=== PATIENT | female | born 1970 | race Caucasian/White ===

== ENCOUNTER 2017-09-29 22:04 | Inpatient (IN) | payer BC ==
[~2017-09-29] VITALS: Ht 160 cm; Wt 78.5 kg
[2017-09-29] MEDS ORDERED: fentaNYL PF VIAL 100 MCG/2 ML VIAL IV ONE (23:00)
[2017-09-29] MEDS ORDERED: ONDANSETRON PF 4 MG/2 ML VIAL. IV ONE (23:00)
[2017-09-29] MEDS ORDERED: IV NORMAL SALINE 1000ML BAG 1,000 ML IV ONE (23:00)
--- NOTE | 2017-09-29 23:02 | PHYS DOC ---
Adult General Chief Complaint Chief Complaint: ABDOMINAL PAIN HPI HPI Patient is a 47 year old F who presents with upper abdominal pain for the last 2-3 days. Patient reports she has been vomiting with diarrhea. She reports she last vomited yesterday. Today, she tried to eat a sandwich and then had severe abdominal pain that radiates to her back. She reports she had her GB removed 2 years ago. She reports she is supposed to take insulin daily, but cannot afford it and has been out for at least 1 year. She reports she has had approximate 100# weight loss over the last two years. Review of Systems Review of Systems Constitutional: Denies fever or chills [] Cardiovascular: Denies chest pain, palpitations or sob GI: Reports epigastric abdominal pain, nausea, vomiting, or diarrhea [] : Denies dysuria or hematuria [] Musculoskeletal: Reports abdominal pain radiates to back Integument: Denies rash or skin lesions [] Endocrine: Reports polydipsia [] All other systems were reviewed and found to be within normal limits, except as documented in this note. Current Medications Current Medications Current Medications Medications (Trade) Dose Ordered Sig/Eamon Start Time Stop Time Status Last Admin Dose Admin Fentanyl Citrate (Fentanyl 2ml Vial) 50 mcg 1X ONCE 09/29/17 23:00 09/29/17 23:01 DC 09/29/17 23:00 50 MCG Ondansetron HCl (Zofran) 4 mg 1X ONCE 09/29/17 23:00 09/29/17 23:01 DC 09/29/17 23:00 4 MG Sodium Chloride 1,000 ml @ 1,000 mls/hr 1X ONCE 09/29/17 23:00 09/29/17 23:59 DC 09/29/17 23:00 1,000 MLS/HR Allergies Allergies Allergies Coded Allergies Type Severity Reaction Last Updated Verified Sulfa (Sulfonamide Antibiotics) Allergy Unknown 09/29/17 Yes Physical Exam Physical Exam Constitutional: Well developed, well nourished, mild distress, non-toxic appearance. [] HENT: Normocephalic, atraumatic Eyes: PERRLA, EOMI, conjunctiva normal, no discharge. [] Neck: Normal range of motion, no tenderness, supple, no stridor. [] Cardiovascular: Mild tachycardia, regular rhythm Lungs & Thorax: Bilateral breath sounds clear to auscultation [] Abdomen: Bowel sounds diminished, soft, upper abdominal tenderness Skin: Warm, dry, no erythema, no rash. [] Neurologic: Alert and oriented X 3, normal motor function, normal sensory function, no focal deficits noted. [] Psychologic: Affect normal, judgement normal, mood normal. [] Current Patient Data Vital Signs Vital Signs Date Time Temp Pulse Resp B/P (MAP) Pulse Ox O2 Delivery O2 Flow Rate FiO2 09/29/17 23:00 102 18 120/64 (82) 99 09/29/17 22:45 98.8 Room Air 98.8 Lab Values Laboratory Tests Test 09/29/17 22:23 09/29/17 22:45 09/29/17 23:06 Urine Collection Type Unknown Urine Color Yellow Urine Clarity Cloudy Urine pH 5.0 Urine Specific [place] 1.025 Urine Protein 100 mg/dL (NEG-TRACE) Urine Glucose (UA) >=1000 mg/dL (NEG) Urine Ketones (Stick) Negative mg/dL (NEG) Urine Blood Trace (NEG) Urine Nitrite Negative (NEG) Urine Bilirubin Small (NEG) Urine Urobilinogen Dipstick 1.0 mg/dL (0.2 mg/dL) Urine Leukocyte Esterase Small (NEG) Urine RBC 1-2 /HPF (0-2) Urine WBC 5-10 /HPF (0-4) Urine Squamous Epithelial Cells Many /LPF Urine Bacteria Many /HPF (0-FEW) Urine Mucus Slight /LPF White Blood Count 15.6 x10^3/uL (4.0-11.0) H Red Blood Count 4.67 x10^6/uL (3.50-5.40) Hemoglobin 14.0 g/dL (12.0-15.5) Hematocrit 40.4 % (36.0-47.0) Mean Corpuscular Volume 87 fL (79-100) Mean Corpuscular Hemoglobin 30 pg (25-35) Mean Corpuscular Hemoglobin Concent 35 g/dL (31-37) Red Cell Distribution Width 12.9 % (11.5-14.5) Platelet Count 136 x10^3/uL (140-400) L Neutrophils (%) (Auto) 87 % (31-73) H Lymphocytes (%) (Auto) 3 % (24-48) L Monocytes (%) (Auto) 9 % (0-9) Eosinophils (%) (Auto) 0 % (0-3) Basophils (%) (Auto) 0 % (0-3) Neutrophils # (Auto) 13.6 x10^3uL (1.8-7.7) H Lymphocytes # (Auto) 0.4 x10^3/uL (1.0-4.8) L Monocytes # (Auto) 1.4 x10^3/uL (0.0-1.1) H Eosinophils # (Auto) 0.0 x10^3/uL (0.0-0.7) Basophils # (Auto) 0.0 x10^3/uL (0.0-0.2) Segmented Neutrophils % 79 % (35-66) H Band Neutrophils % 12 % (0-9) H Lymphocytes % 4 % (24-48) L Monocytes % 4 % (0-10) Eosinophils % 1 % (0-5) Toxic Granulation Slight Toxic Vacuolation Slight Platelet Estimate Adequate (ADEQUATE) Prothrombin Time 14.8 SEC (11.7-14.0) H Prothrombin Time INR 1.2 (0.8-1.1) H Sodium Level 135 mmol/L (136-145) L Potassium Level 3.4 mmol/L (3.5-5.1) L Chloride Level 99 mmol/L (98-107) Carbon Dioxide Level 26 mmol/L (21-32) Anion Gap 10 (6-14) Blood Urea Nitrogen 25 mg/dL (7-20) H Creatinine 1.4 mg/dL (0.6-1.0) H Estimated GFR (Cockcroft-Gault) 40.0 BUN/Creatinine Ratio 18 (6-20) Glucose Level 386 mg/dL (70-99) H Calcium Level 9.5 mg/dL (8.5-10.1) Total Bilirubin 2.3 mg/dL (0.2-1.0) H Aspartate Amino Transferase (AST) 21 U/L (15-37) Alanine Aminotransferase (ALT) 29 U/L (14-59) Alkaline Phosphatase 158 U/L (46-116) H Troponin I Quantitative < 0.017 ng/mL (0.000-0.055) Total Protein 8.3 g/dL (6.4-8.2) H Albumin 3.5 g/dL (3.4-5.0) Albumin/Globulin Ratio 0.7 (1.0-1.7) L Lipase 90 U/L (73-393) Glucose (Fingerstick) 330 mg/dL (70-99) H Laboratory Tests 09/29/17 22:45 Laboratory Tests 09/29/17 22:45 EKG EKG Normal sinus rhythm, heart rate 100, normal axis[] Radiology/Procedures Radiology/Procedures [] Course & Med Decision Making Course & Med Decision Making Pertinent Labs and Imaging studies reviewed. (See chart for details) d/w Dr. Guillaume, will see patient in ER. d/w Dr. Lai, accepts admission Plan: admit puja: I saw and evaluated this patient. She does have significant upper abdominal tenderness CT scan as noted above. Patient was seen by the surgeon the emergency room plan for overnight stabilization check INR surgery soon but not immediately. Maher was ordered by me. I did check her penicillin allergy for she said that she had "convulsions" at the age of 3 but has subsequently tolerated amoxicillin and cephalexin Dragon Disclaimer Dragon Disclaimer This electronic medical record was generated, in whole or in part, using a voice recognition dictation system. Departure Departure Impression: Primary Impression: Pneumoperitoneum Additional Impression: Hyperglycemia Disposition: ADMITTED INPATIENT Admitting Physician: Xie. Salazar Condition: STABLE Problem Qualifiers NATI SMITH APRN Sep 29, 2017 23:02 ABRAM BARONE MD Sep 30, 2017 03:57
[2017-09-29 23:03] LABS: BASO % 0 % (0-3); EOS % 0 % (0-3); HEMATOCRIT 40.4 % (36.0-47.0); LYMPH # 0.4 x10^3/uL (1.0-4.8); LYMPH % 3 % (24-48); MEAN CORPUSCULAR HEMOGLOBIN 30 pg (25-35); MEAN CORPUSCULAR HGB CONC 35 g/dL (31-37); MEAN CORPUSCULAR VOLUME 87 fL (79-100); MONO # 1.4 x10^3/uL (0.0-1.1); MONO % 9 % (0-9); NEUT # 13.6 x10^3uL (1.8-7.7); NEUT % 87 % (31-73); PLATELET COUNT 136 x10^3/uL (140-400); RED BLOOD COUNT 4.67 x10^6/uL (3.50-5.40); RED CELL DISTRIBUTION WIDTH 12.9 % (11.5-14.5); WHITE BLOOD COUNT 15.6 x10^3/uL (4.0-11.0)
[2017-09-29 23:05] LABS: BILIRUBIN,URINE SMALL (NEG); CLARITY,URINE CLOUDY; COLOR,URINE YELLOW; NITRITE,URINE NEGATIVE (NEG); PROTEIN,URINE 100 mg/dL (NEG-TRACE)
[2017-09-29 23:14] LABS: BACTERIA,URINE MANY /HPF (0-FEW); SQUAMOUS EPITHELIAL CELL,UR MANY /LPF
[2017-09-29 23:14] LABS: CALCIUM 9.5 mg/dL (8.5-10.1); CREATININE 1.4 mg/dL (0.6-1.0); POTASSIUM 3.4 mmol/L (3.5-5.1)
[2017-09-29 23:19] LABS: ALBUMIN 3.5 g/dL (3.4-5.0); ALBUMIN/GLOBULIN RATIO 0.7 (1.0-1.7); TOTAL BILIRUBIN 2.3 mg/dL (0.2-1.0); TOTAL PROTEIN 8.3 g/dL (6.4-8.2)
[2017-09-29 23:22] LABS: % BANDS 12 % (0-9); % EOS 1 % (0-5); % LYMPHS 4 % (24-48); % MONOS 4 % (0-10); % SEGS 79 % (35-66)
[2017-09-29 23:23] LABS: PLT ESTIMATE ADEQUATE (ADEQUATE)
[2017-09-29 23:24] LABS: TOXIC GRANULATION SLIGHT; TOXIC VACUOLATION SLIGHT
--- NOTE | 2017-09-29 23:48 | RAD ---
PQRS Compliance statement: One or more of the following individualized dose reduction techniques were utilized for this examination: 1. Automated exposure control. 2. Adjustment of the mA and/or kV according to patient size. 3. Use of iterative reconstruction technique. Indication:severe upper abd pain, back pain, n/v x 2-3 days, non contrast due to low gfr, no priors TECHNIQUE: CT abdomen and pelvis without IV contrast with multiplanar reformats. COMPARISON: None FINDINGS: Limited exam due to lack of IV contrast. Heart is normal in size. No pericardial or pleural effusion. Clear lung bases. Liver is enlarged measuring 20 cm in craniocaudal dimension with lobular contour. Spleen is nonenlarged. Status post cholecystectomy. Noncontrast appearance of the pancreas is within normal limits. Adrenal glands demonstrate no nodularity. No nephrolithiasis or hydronephrosis. Small amount of pneumoperitoneum is seen. Shotty retroperitoneal lymph nodes are seen. No free pelvic fluid or ascites. No bowel obstruction. Uterus is present. Urinary bladder demonstrates no radiopaque stones. Normal appendix. No suspicious bony lesion. IMPRESSION: 1. Small amount of anterior upper abdominal pneumoperitoneum concerning for perforated viscus although no definite site of perforation is seen stomach is suspected. 2. Cirrhotic morphology of the liver. Critical findings were identified on 09/29/2017 11:35 PM, read back and verified with Dr. Navas on 09/29/2017 11:[address] Master Armstrong DO. In Electronically signed by: Master Armstrong DO (09/29/2017 11:44 PM) [facility]
[2017-09-30] VITALS (13 sets, daily range): BP systolic 116–156; BP diastolic 67–96
[2017-09-30] MEDS ORDERED: PIPERACILLIN/TAZOBACTAM 3.375 GM in IV NORMAL SALINE 50ML 50 ML IV ONE (00:15)
[2017-09-30 00:17] LABS: PROTHROMBIN TIME PATIENT 14.8 SEC (11.7-14.0)
[2017-09-30] MEDS ORDERED: MORPHINE SULFATE 2 MG/ML VIAL. IV PRN ×2 (01:15→07:00)
--- NOTE | 2017-09-30 01:17 | PDOC2 ---
CONSULT Date of Consult Date of Consult DATE: 09/30/17 TIME: 00:58 Reason for Consult Reason for Consult: pneumoperitoneum Referring Physician Referring Physician: ANIYAH Identification/Chief Complaint Chief Complaint upper abdominal pain Source Source: Chart review, Patient History of Present Illness Reason for Visit: Maggy is a 47 yo diabetic female who hasn't been on medication for the last year plus. She tells me her sugars usually run in the 400's. She had an episode of "diabetic coma" several years ago while living in [place], [place]. When her three years ago she moved to [place] for a time. She is now back living in the area. Early this week she was having diarrhea and violent emesis. Her diarrhea has resolved. She has been taking Naprosyn for chronic back pain. Earlier tonight she ate a ham sandwich and developed sever upper abdominal pain , radiating to her back. CT tonoc shows pneumoperitoneum. Past Medical History Cardiovascular: No pertinent hx Pulmonary: No pertinent hx Hepatobiliary: Cholelithiasis Renal/: No pertinent hx Endocrine: Diabetes Past Surgical History Past Surgical History: Cholecystectomy Family History Family History: No Significant Social History No ALCOHOL: other (denies) Drugs: Marijuana Current Problem List Problem List Problems Medical Problems: (1) Hyperglycemia Status: Acute (2) Pneumoperitoneum Status: Acute Current Medications Current Medications Current Medications Fentanyl Citrate (Fentanyl 2ml Vial) 50 mcg 1X ONCE IV Last administered on at 23:00; Start 09/29/17 at 23:00; Stop 09/29/17 at 23:01; Status DC Sodium Chloride 1,000 ml @ 1,000 mls/hr 1X ONCE IV Last administered on at 23:00; Start 09/29/17 at 23:00; Stop 09/29/17 at 23:59; Status DC Ondansetron HCl (Zofran) 4 mg 1X ONCE IV Last administered on 09/29/17at 23:00 ; Start 09/29/17 at 23:00; Stop 09/29/17 at 23:01; Status DC Piperacillin Sod/ Tazobactam Sod 3.375 gm/Sodium Chloride 50 ml @ 100 mls/hr 1X ONCE IV Last administered on 09/30/17at 00:15; Start 09/30/17 at 00:15; Stop 09/30/17 at 00:44; Status DC Allergies Allergies: Coded Allergies: Sulfa (Sulfonamide Antibiotics) (Verified Allergy, Unknown, 09/29/17) orquidea (Verified Allergy, Unknown, 09/29/17) ROS Gastrointestinal: Yes Nausea, Yes Vomiting, Yes Abdominal Pain Physical Exam General: Alert, Oriented X3, Cooperative, No acute distress, Other (sitting in a chair next to the gurney) HEENT: Atraumatic, Other (poor dentition) Lungs: Normal air movement Heart: Regular rate Abdomen: Other (soft, non distended, mildly TTP in the upper abdomen, well healed l/s charity scars) Extremities: No clubbing Skin: Other (right hand skin changes) Neuro: Normal speech Psych/Mental Status: Mental status NL MUSCULOSKELETAL: No deformity Vitals VITALS Vital Signs Date Time Temp Pulse Resp B/P (MAP) Pulse Ox O2 Delivery O2 Flow Rate FiO2 09/30/17 00:30 99 18 129/78 (95) 99 09/29/17 22:45 98.8 Room Air 98.8 Labs Labs Laboratory Tests Test 09/29/17 22:23 09/29/17 22:45 09/29/17 23:06 Urine Collection Type Unknown Urine Color Yellow Urine Clarity Cloudy Urine pH 5.0 Urine Specific [place] 1.025 Urine Protein 100 mg/dL (NEG-TRACE) Urine Glucose (UA) >=1000 mg/dL (NEG) Urine Ketones (Stick) Negative mg/dL (NEG) Urine Blood Trace (NEG) Urine Nitrite Negative (NEG) Urine Bilirubin Small (NEG) Urine Urobilinogen Dipstick 1.0 mg/dL (0.2 mg/dL) Urine Leukocyte Esterase Small (NEG) Urine RBC 1-2 /HPF (0-2) Urine WBC 5-10 /HPF (0-4) Urine Squamous Epithelial Cells Many /LPF Urine Bacteria Many /HPF (0-FEW) Urine Mucus Slight /LPF White Blood Count 15.6 x10^3/uL (4.0-11.0) Red Blood Count 4.67 x10^6/uL (3.50-5.40) Hemoglobin 14.0 g/dL (12.0-15.5) Hematocrit 40.4 % (36.0-47.0) Mean Corpuscular Volume 87 fL (79-100) Mean Corpuscular Hemoglobin 30 pg (25-35) Mean Corpuscular Hemoglobin Concent 35 g/dL (31-37) Red Cell Distribution Width 12.9 % (11.5-14.5) Platelet Count 136 x10^3/uL (140-400) Neutrophils (%) (Auto) 87 % (31-73) Lymphocytes (%) (Auto) 3 % (24-48) Monocytes (%) (Auto) 9 % (0-9) Eosinophils (%) (Auto) 0 % (0-3) Basophils (%) (Auto) 0 % (0-3) Neutrophils # (Auto) 13.6 x10^3uL (1.8-7.7) Lymphocytes # (Auto) 0.4 x10^3/uL (1.0-4.8) Monocytes # (Auto) 1.4 x10^3/uL (0.0-1.1) Eosinophils # (Auto) 0.0 x10^3/uL (0.0-0.7) Basophils # (Auto) 0.0 x10^3/uL (0.0-0.2) Segmented Neutrophils % 79 % (35-66) Band Neutrophils % 12 % (0-9) Lymphocytes % 4 % (24-48) Monocytes % 4 % (0-10) Eosinophils % 1 % (0-5) Toxic Granulation Slight Toxic Vacuolation Slight Platelet Estimate Adequate (ADEQUATE) Prothrombin Time 14.8 SEC (11.7-14.0) Prothromb Time International Ratio 1.2 (0.8-1.1) Sodium Level 135 mmol/L (136-145) Potassium Level 3.4 mmol/L (3.5-5.1) Chloride Level 99 mmol/L (98-107) Carbon Dioxide Level 26 mmol/L (21-32) Anion Gap 10 (6-14) Blood Urea Nitrogen 25 mg/dL (7-20) Creatinine 1.4 mg/dL (0.6-1.0) Estimated GFR (Cockcroft-Gault) 40.0 BUN/Creatinine Ratio 18 (6-20) Glucose Level 386 mg/dL (70-99) Calcium Level 9.5 mg/dL (8.5-10.1) Total Bilirubin 2.3 mg/dL (0.2-1.0) Aspartate Amino Transf (AST/SGOT) 21 U/L (15-37) Alanine Aminotransferase (ALT/SGPT) 29 U/L (14-59) Alkaline Phosphatase 158 U/L (46-116) Troponin I Quantitative < 0.017 ng/mL (0.000-0.055) Total Protein 8.3 g/dL (6.4-8.2) Albumin 3.5 g/dL (3.4-5.0) Albumin/Globulin Ratio 0.7 (1.0-1.7) Lipase 90 U/L (73-393) Glucose (Fingerstick) 330 mg/dL (70-99) Laboratory Tests Test 09/29/17 22:23 09/29/17 22:45 09/29/17 23:06 Urine Collection Type Unknown Urine Color Yellow Urine Clarity Cloudy Urine pH 5.0 Urine Specific [place] 1.025 Urine Protein 100 mg/dL (NEG-TRACE) Urine Glucose (UA) >=1000 mg/dL (NEG) Urine Ketones (Stick) Negative mg/dL (NEG) Urine Blood Trace (NEG) Urine Nitrite Negative (NEG) Urine Bilirubin Small (NEG) Urine Urobilinogen Dipstick 1.0 mg/dL (0.2 mg/dL) Urine Leukocyte Esterase Small (NEG) Urine RBC 1-2 /HPF (0-2) Urine WBC 5-10 /HPF (0-4) Urine Squamous Epithelial Cells Many /LPF Urine Bacteria Many /HPF (0-FEW) Urine Mucus Slight /LPF White Blood Count 15.6 x10^3/uL (4.0-11.0) Red Blood Count 4.67 x10^6/uL (3.50-5.40) Hemoglobin 14.0 g/dL (12.0-15.5) Hematocrit 40.4 % (36.0-47.0) Mean Corpuscular Volume 87 fL (79-100) Mean Corpuscular Hemoglobin 30 pg (25-35) Mean Corpuscular Hemoglobin Concent 35 g/dL (31-37) Red Cell Distribution Width 12.9 % (11.5-14.5) Platelet Count 136 x10^3/uL (140-400) Neutrophils (%) (Auto) 87 % (31-73) Lymphocytes (%) (Auto) 3 % (24-48) Monocytes (%) (Auto) 9 % (0-9) Eosinophils (%) (Auto) 0 % (0-3) Basophils (%) (Auto) 0 % (0-3) Neutrophils # (Auto) 13.6 x10^3uL (1.8-7.7) Lymphocytes # (Auto) 0.4 x10^3/uL (1.0-4.8) Monocytes # (Auto) 1.4 x10^3/uL (0.0-1.1) Eosinophils # (Auto) 0.0 x10^3/uL (0.0-0.7) Basophils # (Auto) 0.0 x10^3/uL (0.0-0.2) Segmented Neutrophils % 79 % (35-66) Band Neutrophils % 12 % (0-9) Lymphocytes % 4 % (24-48) Monocytes % 4 % (0-10) Eosinophils % 1 % (0-5) Toxic Granulation Slight Toxic Vacuolation Slight Platelet Estimate Adequate (ADEQUATE) Prothrombin Time 14.8 SEC (11.7-14.0) Prothromb Time International Ratio 1.2 (0.8-1.1) Sodium Level 135 mmol/L (136-145) Potassium Level 3.4 mmol/L (3.5-5.1) Chloride Level 99 mmol/L (98-107) Carbon Dioxide Level 26 mmol/L (21-32) Anion Gap 10 (6-14) Blood Urea Nitrogen 25 mg/dL (7-20) Creatinine 1.4 mg/dL (0.6-1.0) Estimated GFR (Cockcroft-Gault) 40.0 BUN/Creatinine Ratio 18 (6-20) Glucose Level 386 mg/dL (70-99) Calcium Level 9.5 mg/dL (8.5-10.1) Total Bilirubin 2.3 mg/dL (0.2-1.0) Aspartate Amino Transf (AST/SGOT) 21 U/L (15-37) Alanine Aminotransferase (ALT/SGPT) 29 U/L (14-59) Alkaline Phosphatase 158 U/L (46-116) Troponin I Quantitative < 0.017 ng/mL (0.000-0.055) Total Protein 8.3 g/dL (6.4-8.2) Albumin 3.5 g/dL (3.4-5.0) Albumin/Globulin Ratio 0.7 (1.0-1.7) Lipase 90 U/L (73-393) Glucose (Fingerstick) 330 mg/dL (70-99) Images Images CT done on presentation is reviewed Assessment/Plan Assessment/Plan pneumoperitoneum, possible perforated ulcer cirrhosis, hyperbilirubinemia untreated diabetes hydrate, treat hyperglycemia prior to possible OR d/w Maggy she understands will follow Thanks for consult KALEB PALACIO MD Sep 30, 2017 01:17
[2017-09-30] MEDS ORDERED: DEXTROSE 50% 25 GM / 50ML DISP.SYRIN. IV PRN (01:30)
[2017-09-30] MEDS: IV NORMAL SALINE 1000ML BAG 1,000 ML IV SCH ×5 (01:57→20:56)
[2017-09-30] MEDS ORDERED: lantus (02:11)
[2017-09-30] MEDS ORDERED: novolog (02:11)
[2017-09-30] MEDS ORDERED: [UNRECOGNIZED DRUG - REMARK] (02:11)
[2017-09-30] MEDS ORDERED: BUPIVACAINE-EPI 0.5%-1:200000 50 ML VIAL. ONE (06:02)
[2017-09-30] MEDS ORDERED: BACITRACIN 50,000 UNIT VIAL. IRR ONE (06:03)
[2017-09-30] MEDS ORDERED: fentaNYL PF VIAL 100 MCG/2 ML VIAL IV ONE (06:30)
[2017-09-30] MEDS: INSULIN LISPRO 300 UNITS/3 ML INSULN.PEN. SQ SCH ×3 (06:54→17:00)
[2017-09-30] MEDS ORDERED: IV RINGERS,LACTATED 1000ML 1,000 ML IV SCH ×2 (06:55→11:00)
--- NOTE | 2017-09-30 06:55 | EKG ---
[facility] [address] [place] [address] Test Date: 2017-09-29 Test Time: 22:29:28 Pat Name: HARDEEP TAVARES Department: Room: 567 1 Gender: F Mid Level Provider: : 1970 Requested By: NATI SMITH Order Number: [id number] Reading MD: Kleber Lockwood MD Measurements Intervals [place] Rate: 100 P: 26 [place]: 122 QRS: 16 QRSD: 98 T: 28 QT: 350 QTc: 455 Interpretive Statements SINUS RHYTHM Electronically Signed On 09-30-2017 7:36:11 CDT by Kleber Lockwood MD
[2017-09-30] MEDS ORDERED: fentaNYL PF VIAL 100 MCG/2 ML VIAL IV PRN (07:00)
[2017-09-30] MEDS ORDERED: PROCHLORPERAZINE 10 MG/2 ML VIAL. IV PRN (07:00)
[2017-09-30] MEDS ORDERED: ONDANSETRON PF 4 MG/2 ML VIAL. IV PRN (07:00)
[2017-09-30] MEDS ORDERED: HYDROmorphone 2 MG/ML VIAL IV PRN (07:00)
[2017-09-30] MEDS ORDERED: LIDOCAINE 1% PF 2 ML VIAL. ID PRN (07:00)
[2017-09-30] MEDS ORDERED: fentaNYL PF VIAL 250 MCG/5 ML VIAL ONE (07:14)
[2017-09-30] MEDS ORDERED: PHENYLEPHRINE in 0.9% NACL PF 1 MG/10 ML SYRINGE. IV ONE (07:15)
[2017-09-30] MEDS ORDERED: ONDANSETRON PF 4 MG/2 ML VIAL. ONE (07:16)
[2017-09-30] MEDS ORDERED: DEXAMETHASONE SOD PHOS 20 MG/5 ML VIAL. ONE (07:16)
[2017-09-30] MEDS ORDERED: PROPOFOL 20 ML IV ONE (07:16)
[2017-09-30] MEDS ORDERED: INSULIN ASPART 100 UNIT/ML 10ML VIAL. SQ ONE ×2 (07:30→10:00)
[2017-09-30] MEDS: PANTOPRAZOLE IV PUSH 40 MG VIAL. IVP SCH (07:30)
[2017-09-30] MEDS ORDERED: ROCURONIUM 50 MG/5 ML VIAL. ONE (07:44)
[2017-09-30] MEDS ORDERED: ceFAZolin 2GM PREMIX 2 GM/50 ML BAG IV ONE (08:00)
[2017-09-30] MEDS ORDERED: BUPIVACAINE-EPI 0.5%-1:200000 50 ML VIAL. IJ ONE (08:05)
[2017-09-30] MEDS ORDERED: NEOSTIGMINE METHYLSULFATE 5 MG/5 ML SYRINGE. ONE (08:53)
[2017-09-30] MEDS ORDERED: GLYCOPYRROLATE 1 MG/5 ML VIAL. ONE (08:54)
[2017-09-30] MEDS ORDERED: cefOXitin SODIUM 1 GM in IV DEXTROSE 5% 50 ML IV SCH (09:45)
[2017-09-30] MEDS ORDERED: NALOXONE 0.4 MG/ML VIAL. IV PRN (09:45)
[2017-09-30] MEDS ORDERED: 0.9 % SODIUM CHLORIDE 10 ML DISP.SYRIN. IV PRN (09:45)
--- NOTE | 2017-09-30 09:47 | PDOC4 ---
OPERATIVE NOTE Date: Date: Sep 30, 2017 Pre-Op Diagnosis: Pneumoperitoneum Post-Op Diagnosis: same, perforated gastric ulcer, lesser curve Procedure Performed: Laparoscopic converted to open gastric ulcer repair with eliud patch, ulcer biopsy Surgeon: Guzman Kyle Asst: Dr. Guillaume Anesthesia Type: GETA plus local Blood Loss: 50 Specimans Obtained: gastric ulcer Findings: Perforated gastric ulcer on lesser curve, no obvious mass, cirrhotic liver Complications: none Operative Note: After obtaining informed consent, patient was taken to OR, induced under GETA and prepped in the usual fashion. 5 mm port placed umbilical and 12 port placed LUQ, all under laparoscopic guidance. Abdominal cavity explored. Lower abdomen unremarkable. Pt obese. Liver cirrhotic in nature. Succus noted in LUQ associated with lesser curve of stomach. Adhesions present from cholecystectomy and perforation. Given this, open procedure elected. Upper midline incision made with cautery. Careful dissection and exploration of duodenum unremarkable. Lesser curve noted to have succus. Careful dissection revealed 3 mm ulcer with perforation. No associated mass. Biopsy was taken of ulcer using metzenbaum scissors and sent to pathology. Defect closed with continuous 3 0 PDS. 3 0 vicryl used to buttress this with eliud patch. NGT in proper position and no evidence of leakage. Copious irrigation. No evidence of bleeding or other pathology. Fascia repaired LUQ with 0 vicryl. Fascia closed midline with 1 PDS. Skin repaired with 3 0 vicryl and 4 0 monocryl. [place] placed in wound. Dressing placed. Patient tolerated procedure well and sent to PACU in stable condition. All counts correct. Wound class 4, dirty. XU KYLE MD Sep 30, 2017 09:47
[2017-09-30] MEDS ORDERED: fentaNYL PF VIAL 100 MCG/2 ML VIAL ONE (09:51)
[2017-09-30] MEDS: fentaNYL PF VIAL 100 MCG/2 ML VIAL IV PRN ×2 (09:58→10:17)
[2017-09-30] MEDS: MORPHINE SULFATE/PF 30 ML IV PRN (10:12)
[2017-09-30] MEDS: FAMOTIDINE 20 MG/2 ML VIAL IVP SCH ×2 (11:00→20:39)
--- NOTE | 2017-09-30 11:00 | PDOC1 ---
History and Physical Date of Admission Date of Admission DATE: 09/30/17 TIME: 11:00 Identification/Chief Complaint Chief Complaint cc 47 year old F who presents with upper abdominal pain for the last 2-3 days. she has been vomiting with diarrhea seen in ER in mod distress. had been taking lots of naprosyn recently, no PCP, just moved from [place] Past Medical History Cardiovascular: No pertinent hx Pulmonary: No pertinent hx Hepatobiliary: Cholelithiasis Psych: Anxiety Renal/: No pertinent hx Endocrine: Diabetes Past Surgical History Past Surgical History: Cholecystectomy Family History Family History: No Significant Social History Smoke: No ALCOHOL: none (denies) Drugs: Marijuana Current Problem List Problem List Problems Medical Problems: (1) Hyperglycemia Status: Acute (2) Pneumoperitoneum Status: Acute Current Medications Current Medications Current Medications Fentanyl Citrate (Fentanyl 2ml Vial) 50 mcg 1X ONCE IV Last administered on at 23:00; Start 09/29/17 at 23:00; Stop 09/29/17 at 23:01; Status DC Sodium Chloride 1,000 ml @ 1,000 mls/hr 1X ONCE IV Last administered on at 23:00; Start 09/29/17 at 23:00; Stop 09/29/17 at 23:59; Status DC Ondansetron HCl (Zofran) 4 mg 1X ONCE IV Last administered on 09/29/17at 23:00 ; Start 09/29/17 at 23:00; Stop 09/29/17 at 23:01; Status DC Piperacillin Sod/ Tazobactam Sod 3.375 gm/Sodium Chloride 50 ml @ 100 mls/hr 1X ONCE IV Last administered on 09/30/17at 00:15; Start 09/30/17 at 00:15; Stop 09/30/17 at 00:44; Status DC Morphine Sulfate (Morphine Sulfate) 2 mg PRN Q2HR PRN IV PAIN Last administered on 09/30/17at 05:19; Start 09/30/17 at 01:15; Stop 09/30/17 at 09:49 ; Status DC Sodium Chloride 1,000 ml @ 150 mls/hr Q6H40M IV Last administered on at 01:57; Start 09/30/17 at 01:15; Stop 10/01/17 at 01:14 Insulin Human Lispro (HumaLOG) 0-7 UNITS TIDWMEALS SQ Last administered on 09/30at 06:54; Start 09/30/17 at 08:00 Dextrose (Dextrose 50%-Water Syringe) 12.5 gm PRN Q15MIN PRN IV SEE COMMENTS; Start 09/30/17 at 01:30 Pantoprazole Sodium (PROTONIX VIAL for IV PUSH) 40 mg DAILYAC IVP ; Start at 07:30 Fentanyl Citrate (Fentanyl 2ml Vial) 50 mcg 1X ONCE IV Last administered on at 06:34; Start 09/30/17 at 06:30; Stop 09/30/17 at 06:31; Status DC Ondansetron HCl (Zofran) 4 mg PRN Q6HRS PRN IV NAUSEA/VOMITING; Start 09/30/17 at 07:00; Stop 09/30/17 at 19:00 Fentanyl Citrate (Fentanyl 2ml Vial) 25 mcg PRN Q5MIN PRN IV MILD PAIN; Start 09/30/17 at 07:00; Stop 09/30/17 at 19:00 Fentanyl Citrate (Fentanyl 2ml Vial) 50 mcg PRN Q5MIN PRN IV MODERATE TO SEVERE PAIN Last administered on 09/30/17at 10:17; Start 09/30/17 at 07:00; Stop 09/30/17 at 19:00 Morphine Sulfate (Morphine Sulfate) 1 mg PRN Q10MIN PRN IV SEVERE PAIN; Start 09/30/17 at 07:00; Stop 09/30/17 at 19:00 Ringer's Solution 1,000 ml @ 30 mls/hr Q24H IV Last administered on 09/30/17at 07:15; Start 09/30/17 at 06:55; Stop 09/30/17 at 18:54 Lidocaine HCl (Xylocaine-Mpf 1% 2ml Vial) 2 ml 1X PRN PRN ID IV START; Start at 07:00; Stop 09/30/17 at 19:00 Hydromorphone HCl (Dilaudid) 0.5 mg PRN Q10MIN PRN IV SEV PAIN, Second choice; Start 09/30/17 at 07:00; Stop 09/30/17 at 19:00 Prochlorperazine Edisylate (Compazine) 5 mg PACU PRN PRN IV NAUSEA, MRX1; Start 09/30/17 at 07:00; Stop 09/30/17 at 19:00 Bupivacaine HCl/ Epinephrine Bitart (Marcaine-Epi 0.5%-1:[id number]) 50 ml STK-MED ONCE .ROUTE ; Start 09/30/17 at 06:02; Stop 09/30/17 at 07:03; Status DC Bacitracin (Bacitracin) 50,000 unit STK-MED ONCE IRR ; Start 09/30/17 at 06:03; Stop 09/30/17 at 07:03; Status DC Cefazolin Sodium/ Dextrose 50 ml @ As Directed STK-MED ONCE IV ; Start 09/30/17 at 07:10; Stop 09/30/17 at 07:11; Status DC Fentanyl Citrate (Fentanyl 5ml Vial) 250 mcg STK-MED ONCE .ROUTE ; Start at 07:14; Stop 09/30/17 at 07:15; Status DC Phenylephrine HCl (PHENYLEPHRINE in 0.9% NACL PF) 1 mg STK-MED ONCE IV ; Start 09/30/17 at 07:15; Stop 09/30/17 at 07:16; Status DC Propofol 20 ml @ As Directed STK-MED ONCE IV ; Start 09/30/17 at 07:16; Stop at 07:17; Status DC Dexamethasone Sodium Phosphate (Decadron) 20 mg STK-MED ONCE .ROUTE ; Start at 07:16; Stop 09/30/17 at 07:17; Status DC Ondansetron HCl (Zofran) 4 mg STK-MED ONCE .ROUTE ; Start 09/30/17 at 07:16; Stop 09/30/17 at 07:17; Status DC Insulin Aspart (NovoLOG VIAL) 4 unit 1X ONCE SQ Last administered on at 07:26; Start 09/30/17 at 07:30; Stop 09/30/17 at 07:31; Status DC Rocuronium [place] (Zemuron) 50 mg STK-MED ONCE .ROUTE ; Start 09/30/17 at 07:44 ; Stop 09/30/17 at 07:45; Status DC Cefazolin Sodium/ Dextrose 50 ml @ 100 mls/hr 1X PREOP PRN IV Pre Op dose; Start 09/30/17 at 08:00; Stop 09/30/17 at 13:00 Bupivacaine HCl/ Epinephrine Bitart (Marcaine-Epi 0.5%-1:[id number]) 50 ml STK-MED ONCE IJ Last administered on 09/30/17at 08:05; Start 09/30/17 at 08:05; Stop at 09:01; Status DC Neostigmine Methylsulfate (Neostigmine Methylsulfate) 5 mg STK-MED ONCE .ROUTE ; Start 09/30/17 at 08:53; Stop 09/30/17 at 08:54; Status DC Glycopyrrolate (Robinul) 1 mg STK-MED ONCE .ROUTE ; Start 09/30/17 at 08:54; Stop 09/30/17 at 08:55; Status DC Cefoxitin Sodium 1 gm/Dextrose 50 ml @ 100 mls/hr Q6H IV ; Start 09/30/17 at 09 :45; Stop 09/30/17 at 22:14; Status UNV Famotidine (Pepcid Vial) 20 mg BID IVP ; Start 09/30/17 at 11:00 Enoxaparin Sodium (Lovenox 40mg Syringe) 40 mg Q24H SQ ; Start 09/30/17 at 21:00 Sodium Chloride (Normal Saline Flush) 3 ml QSHIFT PRN IV AFTER MEDS AND BLOOD DRAWS; Start 09/30/17 at 09:45 Ringer's Solution 1,000 ml @ 100 mls/hr Q10H IV ; Start 09/30/17 at 11:00 Naloxone HCl (Narcan) 0.4 mg PRN Q2MIN PRN IV SEE INSTRUCTIONS; Start 09/30/17 at 09:45 Sodium Chloride 1,000 ml @ 25 mls/hr Q24H IV ; Start 09/30/17 at 10:00 Morphine Sulfate 30 ml @ 0 mls/hr CONT PRN PRN IV PER PROTOCOL Last administered on 09/30/17at 10:12; Start 09/30/17 at 10:00 Ondansetron HCl (Zofran) 4 mg PRN Q6HRS PRN IV NAUESA, 1ST CHOICE; Start at 09:45 Cefoxitin Sodium (Mefoxin) 1 gm Q6H IVP ; Start 09/30/17 at 14:00; Stop at 02:01 Insulin Aspart (NovoLOG VIAL) 6 unit 1X PACU ONCE SQ Last administered on 09/30at 09:59; Start 09/30/17 at 10:00; Stop 09/30/17 at 10:01; Status DC Fentanyl Citrate (Fentanyl 2ml Vial) 100 mcg STK-MED ONCE .ROUTE ; Start at 09:51; Stop 09/30/17 at 09:52; Status DC Active Scripts Active Reported [novolog] TIDAC [lantus] HS [bipolar medicine ?] Allergies Allergies: Coded Allergies: Sulfa (Sulfonamide Antibiotics) (Verified Allergy, Intermediate, 09/30/17) orquidea (Verified Allergy, Intermediate, 09/30/17) orquidea peels ROS Review of System Review of Systems Review of Systems Constitutional: Denies fever or chills [] Cardiovascular: Denies chest pain, palpitations or sob GI: Reports epigastric abdominal pain, nausea, vomiting, or diarrhea [] : Denies dysuria or hematuria [] Musculoskeletal: Reports abdominal pain radiates to back Integument: Denies rash or skin lesions [] Endocrine: Reports polydipsia [] 14 pt systems were reviewed and found to be within normal limits, except as documented . General: YES: Fatigue PSYCHOLOGICAL ROS: YES: Anxiety Gastrointestinal: Yes Nausea, Yes Vomiting, Yes Abdominal Pain Physical Exam Physical Exam Physical Exam Physical Exam Constitutional: Well developed, well nourished, mod distress, non-toxic appearance. [] HENT: Normocephalic, atraumatic Eyes: PERRLA, EOMI, conjunctiva normal, no discharge. [] Neck: Normal range of motion, no tenderness, supple, no stridor. [] Cardiovascular: Mild tachycardia, regular rhythm Lungs & Thorax: Bilateral breath sounds clear to auscultation [] Abdomen: Bowel sounds diminished, soft, upper abdominal tenderness Skin: Warm, dry, no erythema, no rash. [] Neurologic: Alert and oriented X 3, normal motor function, normal sensory function, no focal deficits noted. [] Psychologic: Affect normal, judgement normal, mood normal. [] General: Alert, Oriented X3, Cooperative, moderate distress HEENT: PERRLA, EOMI Lungs: Normal air movement Breasts: Not examined Rectal Exam: not examined PELVIC: Examination not indicated Extremities: No cyanosis Neuro: Cranial nerves 3-12 NL Psych/Mental Status: Mental status NL, Mood NL Vitals Vitals Vital Signs Date Time Temp Pulse Resp B/P (MAP) Pulse Ox O2 Delivery O2 Flow Rate FiO2 09/30/17 10:23 105 18 153/91 98 Nasal Cannula 2 09/30/17 10:08 98.9 98.9 Labs Labs Laboratory Tests Test 09/29/17 22:23 09/29/17 22:45 09/29/17 23:06 09/30/17 06:50 Urine Collection Type Unknown Urine Color Yellow Urine Clarity Cloudy Urine pH 5.0 Urine Specific [place] 1.025 Urine Protein 100 mg/dL (NEG-TRACE) Urine Glucose (UA) >=1000 mg/dL (NEG) Urine Ketones (Stick) Negative mg/dL (NEG) Urine Blood Trace (NEG) Urine Nitrite Negative (NEG) Urine Bilirubin Small (NEG) Urine Urobilinogen Dipstick 1.0 mg/dL (0.2 mg/dL) Urine Leukocyte Esterase Small (NEG) Urine RBC 1-2 /HPF (0-2) Urine WBC 5-10 /HPF (0-4) Urine Squamous Epithelial Cells Many /LPF Urine Bacteria Many /HPF (0-FEW) Urine Mucus Slight /LPF White Blood Count 15.6 x10^3/uL (4.0-11.0) Red Blood Count 4.67 x10^6/uL (3.50-5.40) Hemoglobin 14.0 g/dL (12.0-15.5) Hematocrit 40.4 % (36.0-47.0) Mean Corpuscular Volume 87 fL (79-100) Mean Corpuscular Hemoglobin 30 pg (25-35) Mean Corpuscular Hemoglobin Concent 35 g/dL (31-37) Red Cell Distribution Width 12.9 % (11.5-14.5) Platelet Count 136 x10^3/uL (140-400) Neutrophils (%) (Auto) 87 % (31-73) Lymphocytes (%) (Auto) 3 % (24-48) Monocytes (%) (Auto) 9 % (0-9) Eosinophils (%) (Auto) 0 % (0-3) Basophils (%) (Auto) 0 % (0-3) Neutrophils # (Auto) 13.6 x10^3uL (1.8-7.7) Lymphocytes # (Auto) 0.4 x10^3/uL (1.0-4.8) Monocytes # (Auto) 1.4 x10^3/uL (0.0-1.1) Eosinophils # (Auto) 0.0 x10^3/uL (0.0-0.7) Basophils # (Auto) 0.0 x10^3/uL (0.0-0.2) Segmented Neutrophils % 79 % (35-66) Band Neutrophils % 12 % (0-9) Lymphocytes % 4 % (24-48) Monocytes % 4 % (0-10) Eosinophils % 1 % (0-5) Toxic Granulation Slight Toxic Vacuolation Slight Platelet Estimate Adequate (ADEQUATE) Prothrombin Time 14.8 SEC (11.7-14.0) Prothromb Time International Ratio 1.2 (0.8-1.1) Sodium Level 135 mmol/L (136-145) Potassium Level 3.4 mmol/L (3.5-5.1) Chloride Level 99 mmol/L (98-107) Carbon Dioxide Level 26 mmol/L (21-32) Anion Gap 10 (6-14) Blood Urea Nitrogen 25 mg/dL (7-20) Creatinine 1.4 mg/dL (0.6-1.0) Estimated GFR (Cockcroft-Gault) 40.0 BUN/Creatinine Ratio 18 (6-20) Glucose Level 386 mg/dL (70-99) Calcium Level 9.5 mg/dL (8.5-10.1) Total Bilirubin 2.3 mg/dL (0.2-1.0) Aspartate Amino Transf (AST/SGOT) 21 U/L (15-37) Alanine Aminotransferase (ALT/SGPT) 29 U/L (14-59) Alkaline Phosphatase 158 U/L (46-116) Troponin I Quantitative < 0.017 ng/mL (0.000-0.055) Total Protein 8.3 g/dL (6.4-8.2) Albumin 3.5 g/dL (3.4-5.0) Albumin/Globulin Ratio 0.7 (1.0-1.7) Lipase 90 U/L (73-393) Glucose (Fingerstick) 330 mg/dL (70-99) 293 mg/dL (70-99) Test 09/30/17 07:19 09/30/17 09:34 Glucose (Fingerstick) 274 mg/dL (70-99) 223 mg/dL (70-99) Laboratory Tests Test 09/29/17 22:23 09/29/17 22:45 09/29/17 23:06 09/30/17 06:50 Urine Collection Type Unknown Urine Color Yellow Urine Clarity Cloudy Urine pH 5.0 Urine Specific [place] 1.025 Urine Protein 100 mg/dL (NEG-TRACE) Urine Glucose (UA) >=1000 mg/dL (NEG) Urine Ketones (Stick) Negative mg/dL (NEG) Urine Blood Trace (NEG) Urine Nitrite Negative (NEG) Urine Bilirubin Small (NEG) Urine Urobilinogen Dipstick 1.0 mg/dL (0.2 mg/dL) Urine Leukocyte Esterase Small (NEG) Urine RBC 1-2 /HPF (0-2) Urine WBC 5-10 /HPF (0-4) Urine Squamous Epithelial Cells Many /LPF Urine Bacteria Many /HPF (0-FEW) Urine Mucus Slight /LPF White Blood Count 15.6 x10^3/uL (4.0-11.0) Red Blood Count 4.67 x10^6/uL (3.50-5.40) Hemoglobin 14.0 g/dL (12.0-15.5) Hematocrit 40.4 % (36.0-47.0) Mean Corpuscular Volume 87 fL (79-100) Mean Corpuscular Hemoglobin 30 pg (25-35) Mean Corpuscular Hemoglobin Concent 35 g/dL (31-37) Red Cell Distribution Width 12.9 % (11.5-14.5) Platelet Count 136 x10^3/uL (140-400) Neutrophils (%) (Auto) 87 % (31-73) Lymphocytes (%) (Auto) 3 % (24-48) Monocytes (%) (Auto) 9 % (0-9) Eosinophils (%) (Auto) 0 % (0-3) Basophils (%) (Auto) 0 % (0-3) Neutrophils # (Auto) 13.6 x10^3uL (1.8-7.7) Lymphocytes # (Auto) 0.4 x10^3/uL (1.0-4.8) Monocytes # (Auto) 1.4 x10^3/uL (0.0-1.1) Eosinophils # (Auto) 0.0 x10^3/uL (0.0-0.7) Basophils # (Auto) 0.0 x10^3/uL (0.0-0.2) Segmented Neutrophils % 79 % (35-66) Band Neutrophils % 12 % (0-9) Lymphocytes % 4 % (24-48) Monocytes % 4 % (0-10) Eosinophils % 1 % (0-5) Toxic Granulation Slight Toxic Vacuolation Slight Platelet Estimate Adequate (ADEQUATE) Prothrombin Time 14.8 SEC (11.7-14.0) Prothromb Time International Ratio 1.2 (0.8-1.1) Sodium Level 135 mmol/L (136-145) Potassium Level 3.4 mmol/L (3.5-5.1) Chloride Level 99 mmol/L (98-107) Carbon Dioxide Level 26 mmol/L (21-32) Anion Gap 10 (6-14) Blood Urea Nitrogen 25 mg/dL (7-20) Creatinine 1.4 mg/dL (0.6-1.0) Estimated GFR (Cockcroft-Gault) 40.0 BUN/Creatinine Ratio 18 (6-20) Glucose Level 386 mg/dL (70-99) Calcium Level 9.5 mg/dL (8.5-10.1) Total Bilirubin 2.3 mg/dL (0.2-1.0) Aspartate Amino Transf (AST/SGOT) 21 U/L (15-37) Alanine Aminotransferase (ALT/SGPT) 29 U/L (14-59) Alkaline Phosphatase 158 U/L (46-116) Troponin I Quantitative < 0.017 ng/mL (0.000-0.055) Total Protein 8.3 g/dL (6.4-8.2) Albumin 3.5 g/dL (3.4-5.0) Albumin/Globulin Ratio 0.7 (1.0-1.7) Lipase 90 U/L (73-393) Glucose (Fingerstick) 330 mg/dL (70-99) 293 mg/dL (70-99) Test 09/30/17 07:19 09/30/17 09:34 Glucose (Fingerstick) 274 mg/dL (70-99) 223 mg/dL (70-99) VTE Prophylaxis Ordered VTE Prophylaxis Devices: No VTE Pharmacological Prophylaxi: Contraindicated Assessment/Plan Assessment/Plan impression 1. acute perforated gastric ulcer 2. diabetes 3. morbid obesity 4. NSAID use 5. THC use plan to OR TODAY ss insulin iv pepsid iv zosyn ID consult hold lovenox today acchecks chk lactic acid Pre-Op Diagnosis: Pneumoperitoneum Post-Op Diagnosis: same, perforated gastric ulcer, lesser curve Procedure Performed: Laparoscopic converted to open gastric ulcer repair with eliud patch, ulcer biopsy Surgeon: EMMANUEL Perry MD Sep 30, 2017 11:00
[2017-09-30] MEDS: cefOXitin SODIUM IV Push 1 GM VIAL. IVP SCH ×2 (17:34→22:20)
[2017-09-30] MEDS: PIPERACILLIN/TAZOBACTAM 3.375 GM in IV NORMAL SALINE 50ML 50 ML IV SCH (17:45)
[2017-10-01] MEDS: PIPERACILLIN/TAZOBACTAM 3.375 GM in IV NORMAL SALINE 50ML 50 ML IV SCH ×5 (00:14→23:57)
[2017-10-01 03:00] VITALS: BP 129/79
[2017-10-01] MEDS: IV NORMAL SALINE 1000ML BAG 1,000 ML IV SCH (04:09)
[2017-10-01] MEDS: cefOXitin SODIUM IV Push 1 GM VIAL. IVP SCH (04:11)
[2017-10-01 07:00] VITALS: BP 132/72
[2017-10-01] MEDS: PANTOPRAZOLE IV PUSH 40 MG VIAL. IVP SCH (07:30)
[2017-10-01] MEDS: INSULIN LISPRO 300 UNITS/3 ML INSULN.PEN. SQ SCH ×3 (08:00→18:01)
[2017-10-01 08:05] LABS: BASO % 0 % (0-3); EOS % 0 % (0-3); HEMATOCRIT 36.4 % (36.0-47.0); HEMOGLOBIN 12.3 g/dL (12.0-15.5); LYMPH # 0.7 x10^3/uL (1.0-4.8); LYMPH % 5 % (24-48); MEAN CORPUSCULAR HEMOGLOBIN 30 pg (25-35); MEAN CORPUSCULAR HGB CONC 34 g/dL (31-37); MEAN CORPUSCULAR VOLUME 88 fL (79-100); MONO # 1.4 x10^3/uL (0.0-1.1); MONO % 10 % (0-9); NEUT # 12.8 x10^3uL (1.8-7.7); NEUT % 86 % (31-73); PLATELET COUNT 151 x10^3/uL (140-400); RED BLOOD COUNT 4.15 x10^6/uL (3.50-5.40); RED CELL DISTRIBUTION WIDTH 13.5 % (11.5-14.5)
--- NOTE | 2017-10-01 08:19 | PDOC ---
SURGICAL PROGRESS NOTE Subjective Pt feels better today, no N/V Vital Signs Vital Signs Date Time Temp Pulse Resp B/P (MAP) Pulse Ox O2 Delivery O2 Flow Rate FiO2 10/01/17 07:00 98.1 85 16 132/72 (92) 98 Nasal Cannula 2.0 98.1 I&O Intake and Output 10/01/17 07:00 Intake Total 140 ml Output Total 1360 ml Balance -1220 ml Intake Oral 140 ml Output Urine Total 1360 ml # Voids 1 PATIENT HAS A HAYNES: Yes (d/c haynes) General: Alert, Oriented X3, Cooperative, No acute distress Abdomen: Soft, No tenderness Labs Laboratory Tests Test 09/29/17 22:23 09/29/17 22:45 09/29/17 23:06 09/30/17 06:50 Urine Collection Type Unknown Urine Color Yellow Urine Clarity Cloudy Urine pH 5.0 Urine Specific [place] 1.025 Urine Protein 100 mg/dL (NEG-TRACE) Urine Glucose (UA) >=1000 mg/dL (NEG) Urine Ketones (Stick) Negative mg/dL (NEG) Urine Blood Trace (NEG) Urine Nitrite Negative (NEG) Urine Bilirubin Small (NEG) Urine Urobilinogen Dipstick 1.0 mg/dL (0.2 mg/dL) Urine Leukocyte Esterase Small (NEG) Urine RBC 1-2 /HPF (0-2) Urine WBC 5-10 /HPF (0-4) Urine Squamous Epithelial Cells Many /LPF Urine Bacteria Many /HPF (0-FEW) Urine Mucus Slight /LPF White Blood Count 15.6 x10^3/uL (4.0-11.0) Red Blood Count 4.67 x10^6/uL (3.50-5.40) Hemoglobin 14.0 g/dL (12.0-15.5) Hematocrit 40.4 % (36.0-47.0) Mean Corpuscular Volume 87 fL (79-100) Mean Corpuscular Hemoglobin 30 pg (25-35) Mean Corpuscular Hemoglobin Concent 35 g/dL (31-37) Red Cell Distribution Width 12.9 % (11.5-14.5) Platelet Count 136 x10^3/uL (140-400) Neutrophils (%) (Auto) 87 % (31-73) Lymphocytes (%) (Auto) 3 % (24-48) Monocytes (%) (Auto) 9 % (0-9) Eosinophils (%) (Auto) 0 % (0-3) Basophils (%) (Auto) 0 % (0-3) Neutrophils # (Auto) 13.6 x10^3uL (1.8-7.7) Lymphocytes # (Auto) 0.4 x10^3/uL (1.0-4.8) Monocytes # (Auto) 1.4 x10^3/uL (0.0-1.1) Eosinophils # (Auto) 0.0 x10^3/uL (0.0-0.7) Basophils # (Auto) 0.0 x10^3/uL (0.0-0.2) Segmented Neutrophils % 79 % (35-66) Band Neutrophils % 12 % (0-9) Lymphocytes % 4 % (24-48) Monocytes % 4 % (0-10) Eosinophils % 1 % (0-5) Toxic Granulation Slight Toxic Vacuolation Slight Platelet Estimate Adequate (ADEQUATE) Prothrombin Time 14.8 SEC (11.7-14.0) Prothromb Time International Ratio 1.2 (0.8-1.1) Sodium Level 135 mmol/L (136-145) Potassium Level 3.4 mmol/L (3.5-5.1) Chloride Level 99 mmol/L (98-107) Carbon Dioxide Level 26 mmol/L (21-32) Anion Gap 10 (6-14) Blood Urea Nitrogen 25 mg/dL (7-20) Creatinine 1.4 mg/dL (0.6-1.0) Estimated GFR (Cockcroft-Gault) 40.0 BUN/Creatinine Ratio 18 (6-20) Glucose Level 386 mg/dL (70-99) Calcium Level 9.5 mg/dL (8.5-10.1) Total Bilirubin 2.3 mg/dL (0.2-1.0) Aspartate Amino Transf (AST/SGOT) 21 U/L (15-37) Alanine Aminotransferase (ALT/SGPT) 29 U/L (14-59) Alkaline Phosphatase 158 U/L (46-116) Troponin I Quantitative < 0.017 ng/mL (0.000-0.055) Total Protein 8.3 g/dL (6.4-8.2) Albumin 3.5 g/dL (3.4-5.0) Albumin/Globulin Ratio 0.7 (1.0-1.7) Lipase 90 U/L (73-393) Glucose (Fingerstick) 330 mg/dL (70-99) 293 mg/dL (70-99) Test 09/30/17 07:19 09/30/17 09:34 09/30/17 11:14 09/30/17 15:55 Glucose (Fingerstick) 274 mg/dL (70-99) 223 mg/dL (70-99) 193 mg/dL (70-99) Lactic Acid Level 0.8 mmol/L (0.4-2.0) Test 09/30/17 16:34 09/30/17 20:45 10/01/17 07:21 10/01/17 07:44 Glucose (Fingerstick) 194 mg/dL (70-99) 163 mg/dL (70-99) 144 mg/dL (70-99) White Blood Count 15.0 x10^3/uL (4.0-11.0) Red Blood Count 4.15 x10^6/uL (3.50-5.40) Hemoglobin 12.3 g/dL (12.0-15.5) Hematocrit 36.4 % (36.0-47.0) Mean Corpuscular Volume 88 fL (79-100) Mean Corpuscular Hemoglobin 30 pg (25-35) Mean Corpuscular Hemoglobin Concent 34 g/dL (31-37) Red Cell Distribution Width 13.5 % (11.5-14.5) Platelet Count 151 x10^3/uL (140-400) Neutrophils (%) (Auto) 86 % (31-73) Lymphocytes (%) (Auto) 5 % (24-48) Monocytes (%) (Auto) 10 % (0-9) Eosinophils (%) (Auto) 0 % (0-3) Basophils (%) (Auto) 0 % (0-3) Neutrophils # (Auto) 12.8 x10^3uL (1.8-7.7) Lymphocytes # (Auto) 0.7 x10^3/uL (1.0-4.8) Monocytes # (Auto) 1.4 x10^3/uL (0.0-1.1) Eosinophils # (Auto) 0.0 x10^3/uL (0.0-0.7) Basophils # (Auto) 0.0 x10^3/uL (0.0-0.2) Laboratory Tests Test 09/30/17 09:34 09/30/17 11:14 09/30/17 15:55 09/30/17 16:34 Glucose (Fingerstick) 223 mg/dL (70-99) 193 mg/dL (70-99) 194 mg/dL (70-99) Lactic Acid Level 0.8 mmol/L (0.4-2.0) Test 09/30/17 20:45 10/01/17 07:21 10/01/17 07:44 Glucose (Fingerstick) 163 mg/dL (70-99) 144 mg/dL (70-99) White Blood Count 15.0 x10^3/uL (4.0-11.0) Red Blood Count 4.15 x10^6/uL (3.50-5.40) Hemoglobin 12.3 g/dL (12.0-15.5) Hematocrit 36.4 % (36.0-47.0) Mean Corpuscular Volume 88 fL (79-100) Mean Corpuscular Hemoglobin 30 pg (25-35) Mean Corpuscular Hemoglobin Concent 34 g/dL (31-37) Red Cell Distribution Width 13.5 % (11.5-14.5) Platelet Count 151 x10^3/uL (140-400) Neutrophils (%) (Auto) 86 % (31-73) Lymphocytes (%) (Auto) 5 % (24-48) Monocytes (%) (Auto) 10 % (0-9) Eosinophils (%) (Auto) 0 % (0-3) Basophils (%) (Auto) 0 % (0-3) Neutrophils # (Auto) 12.8 x10^3uL (1.8-7.7) Lymphocytes # (Auto) 0.7 x10^3/uL (1.0-4.8) Monocytes # (Auto) 1.4 x10^3/uL (0.0-1.1) Eosinophils # (Auto) 0.0 x10^3/uL (0.0-0.7) Basophils # (Auto) 0.0 x10^3/uL (0.0-0.2) Problem List Problems Medical Problems: (1) Hyperglycemia Status: Acute (2) Pneumoperitoneum Status: Acute Assessment/Plan s/p Gastric ulcer repair clamp NGT, d/c haynes cont abx and antiulcer XU KYLE MD Oct 01, 2017 08:19
[2017-10-01 08:28] LABS: ALBUMIN 2.3 g/dL (3.4-5.0); ALBUMIN/GLOBULIN RATIO 0.5 (1.0-1.7); CALCIUM 8.4 mg/dL (8.5-10.1); CREATININE 0.9 mg/dL (0.6-1.0); GFR 66.5; TOTAL BILIRUBIN 0.8 mg/dL (0.2-1.0); TOTAL PROTEIN 7.1 g/dL (6.4-8.2)
[2017-10-01 08:31] LABS: POTASSIUM 2.9 mmol/L (3.5-5.1)
[2017-10-01] MEDS: FAMOTIDINE 20 MG/2 ML VIAL IVP SCH (08:40)
[2017-10-01] MEDS: ENOXAPARIN 40 MG/0.4 ML SYRINGE. SQ SCH (08:41)
[2017-10-01] MEDS ORDERED: POTASSIUM CHLORIDE 20 MEQ TABLET.ER. PO ONE (09:30)
[2017-10-01] MEDS: POTASSIUM CL 40MEQ IN 0.9%NACL 1,000 ML IV SCH ×2 (09:31→22:19)
--- NOTE | 2017-10-01 09:52 | PDOC ---
PROGRESS NOTES Chief Complaint Chief Complaint Pneumoperitoneum from perforated stomach status post surgery 09/30/17 Critical hypokalemia Reactive leukocytosis postsurgery Acute abdominal pain secondary to above, on [employer] Chronic back pain, NSAID use prior to surgery History of Present Illness History of Present Illness NG tube was clamped, minimal drainage, minimal pain, the NG tube is bothersome to her Started on liquid diet today Labs, called by RN critical potassium 2.9, WBC 15 with no fevers and nontoxic- appearing She is up in chair Abdomen, mid vertical wound, dressing dry, minimal pain or tenderness, normoactive bowel sounds, passing gas PLAN: Continue NG trial today Replace potassium, I did order K containing IVF and by mouth potassium May DC Pepcid, already on Protonix Labs again tomorrow Hopefully might be able to get the NG out Discussed with her and RN Vitals Vitals Vital Signs Date Time Temp Pulse Resp B/P (MAP) Pulse Ox O2 Delivery O2 Flow Rate FiO2 10/01/17 07:00 98.1 85 16 132/72 (92) 98 Nasal Cannula 2.0 98.1 Physical Exam General: Alert, Oriented X3, Cooperative, No acute distress Heart: Regular rate Abdomen: Soft, No tenderness Extremities: No cyanosis Skin: Other (right hand skin changes) Labs LABS Laboratory Tests Test 09/30/17 11:14 09/30/17 15:55 09/30/17 16:34 09/30/17 20:45 Glucose (Fingerstick) 193 mg/dL (70-99) 194 mg/dL (70-99) 163 mg/dL (70-99) Lactic Acid Level 0.8 mmol/L (0.4-2.0) Test 10/01/17 07:21 10/01/17 07:44 White Blood Count 15.0 x10^3/uL (4.0-11.0) Red Blood Count 4.15 x10^6/uL (3.50-5.40) Hemoglobin 12.3 g/dL (12.0-15.5) Hematocrit 36.4 % (36.0-47.0) Mean Corpuscular Volume 88 fL (79-100) Mean Corpuscular Hemoglobin 30 pg (25-35) Mean Corpuscular Hemoglobin Concent 34 g/dL (31-37) Red Cell Distribution Width 13.5 % (11.5-14.5) Platelet Count 151 x10^3/uL (140-400) Neutrophils (%) (Auto) 86 % (31-73) Lymphocytes (%) (Auto) 5 % (24-48) Monocytes (%) (Auto) 10 % (0-9) Eosinophils (%) (Auto) 0 % (0-3) Basophils (%) (Auto) 0 % (0-3) Neutrophils # (Auto) 12.8 x10^3uL (1.8-7.7) Lymphocytes # (Auto) 0.7 x10^3/uL (1.0-4.8) Monocytes # (Auto) 1.4 x10^3/uL (0.0-1.1) Eosinophils # (Auto) 0.0 x10^3/uL (0.0-0.7) Basophils # (Auto) 0.0 x10^3/uL (0.0-0.2) Sodium Level 138 mmol/L (136-145) Potassium Level 2.9 mmol/L (3.5-5.1) Chloride Level 105 mmol/L (98-107) Carbon Dioxide Level 20 mmol/L (21-32) Anion Gap 13 (6-14) Blood Urea Nitrogen 18 mg/dL (7-20) Creatinine 0.9 mg/dL (0.6-1.0) Estimated GFR (Cockcroft-Gault) 66.5 BUN/Creatinine Ratio 20 (6-20) Glucose Level 164 mg/dL (70-99) Calcium Level 8.4 mg/dL (8.5-10.1) Total Bilirubin 0.8 mg/dL (0.2-1.0) Aspartate Amino Transf (AST/SGOT) 19 U/L (15-37) Alanine Aminotransferase (ALT/SGPT) 21 U/L (14-59) Alkaline Phosphatase 136 U/L (46-116) Total Protein 7.1 g/dL (6.4-8.2) Albumin 2.3 g/dL (3.4-5.0) Albumin/Globulin Ratio 0.5 (1.0-1.7) Glucose (Fingerstick) 144 mg/dL (70-99) Review of Systems Review of Systems NG tube is other some to her, the rest okay- neg 14 point Assessment and Plan Assessmemt and Plan Problems Medical Problems: (1) Hyperglycemia Status: Acute (2) Pneumoperitoneum Status: Acute Comment Review of Relevant I have reviewed the following items jana (where applicable) has been applied. Labs Laboratory Tests Test 09/29/17 22:23 09/29/17 22:45 09/29/17 23:06 09/30/17 06:50 Urine Collection Type Unknown Urine Color Yellow Urine Clarity Cloudy Urine pH 5.0 Urine Specific [place] 1.025 Urine Protein 100 mg/dL (NEG-TRACE) Urine Glucose (UA) >=1000 mg/dL (NEG) Urine Ketones (Stick) Negative mg/dL (NEG) Urine Blood Trace (NEG) Urine Nitrite Negative (NEG) Urine Bilirubin Small (NEG) Urine Urobilinogen Dipstick 1.0 mg/dL (0.2 mg/dL) Urine Leukocyte Esterase Small (NEG) Urine RBC 1-2 /HPF (0-2) Urine WBC 5-10 /HPF (0-4) Urine Squamous Epithelial Cells Many /LPF Urine Bacteria Many /HPF (0-FEW) Urine Mucus Slight /LPF White Blood Count 15.6 x10^3/uL (4.0-11.0) Red Blood Count 4.67 x10^6/uL (3.50-5.40) Hemoglobin 14.0 g/dL (12.0-15.5) Hematocrit 40.4 % (36.0-47.0) Mean Corpuscular Volume 87 fL (79-100) Mean Corpuscular Hemoglobin 30 pg (25-35) Mean Corpuscular Hemoglobin Concent 35 g/dL (31-37) Red Cell Distribution Width 12.9 % (11.5-14.5) Platelet Count 136 x10^3/uL (140-400) Neutrophils (%) (Auto) 87 % (31-73) Lymphocytes (%) (Auto) 3 % (24-48) Monocytes (%) (Auto) 9 % (0-9) Eosinophils (%) (Auto) 0 % (0-3) Basophils (%) (Auto) 0 % (0-3) Neutrophils # (Auto) 13.6 x10^3uL (1.8-7.7) Lymphocytes # (Auto) 0.4 x10^3/uL (1.0-4.8) Monocytes # (Auto) 1.4 x10^3/uL (0.0-1.1) Eosinophils # (Auto) 0.0 x10^3/uL (0.0-0.7) Basophils # (Auto) 0.0 x10^3/uL (0.0-0.2) Segmented Neutrophils % 79 % (35-66) Band Neutrophils % 12 % (0-9) Lymphocytes % 4 % (24-48) Monocytes % 4 % (0-10) Eosinophils % 1 % (0-5) Toxic Granulation Slight Toxic Vacuolation Slight Platelet Estimate Adequate (ADEQUATE) Prothrombin Time 14.8 SEC (11.7-14.0) Prothromb Time International Ratio 1.2 (0.8-1.1) Sodium Level 135 mmol/L (136-145) Potassium Level 3.4 mmol/L (3.5-5.1) Chloride Level 99 mmol/L (98-107) Carbon Dioxide Level 26 mmol/L (21-32) Anion Gap 10 (6-14) Blood Urea Nitrogen 25 mg/dL (7-20) Creatinine 1.4 mg/dL (0.6-1.0) Estimated GFR (Cockcroft-Gault) 40.0 BUN/Creatinine Ratio 18 (6-20) Glucose Level 386 mg/dL (70-99) Calcium Level 9.5 mg/dL (8.5-10.1) Total Bilirubin 2.3 mg/dL (0.2-1.0) Aspartate Amino Transf (AST/SGOT) 21 U/L (15-37) Alanine Aminotransferase (ALT/SGPT) 29 U/L (14-59) Alkaline Phosphatase 158 U/L (46-116) Troponin I Quantitative < 0.017 ng/mL (0.000-0.055) Total Protein 8.3 g/dL (6.4-8.2) Albumin 3.5 g/dL (3.4-5.0) Albumin/Globulin Ratio 0.7 (1.0-1.7) Lipase 90 U/L (73-393) Glucose (Fingerstick) 330 mg/dL (70-99) 293 mg/dL (70-99) Test 09/30/17 07:19 09/30/17 09:34 09/30/17 11:14 09/30/17 15:55 Glucose (Fingerstick) 274 mg/dL (70-99) 223 mg/dL (70-99) 193 mg/dL (70-99) Lactic Acid Level 0.8 mmol/L (0.4-2.0) Test 09/30/17 16:34 09/30/17 20:45 10/01/17 07:21 10/01/17 07:44 Glucose (Fingerstick) 194 mg/dL (70-99) 163 mg/dL (70-99) 144 mg/dL (70-99) White Blood Count 15.0 x10^3/uL (4.0-11.0) Red Blood Count 4.15 x10^6/uL (3.50-5.40) Hemoglobin 12.3 g/dL (12.0-15.5) Hematocrit 36.4 % (36.0-47.0) Mean Corpuscular Volume 88 fL (79-100) Mean Corpuscular Hemoglobin 30 pg (25-35) Mean Corpuscular Hemoglobin Concent 34 g/dL (31-37) Red Cell Distribution Width 13.5 % (11.5-14.5) Platelet Count 151 x10^3/uL (140-400) Neutrophils (%) (Auto) 86 % (31-73) Lymphocytes (%) (Auto) 5 % (24-48) Monocytes (%) (Auto) 10 % (0-9) Eosinophils (%) (Auto) 0 % (0-3) Basophils (%) (Auto) 0 % (0-3) Neutrophils # (Auto) 12.8 x10^3uL (1.8-7.7) Lymphocytes # (Auto) 0.7 x10^3/uL (1.0-4.8) Monocytes # (Auto) 1.4 x10^3/uL (0.0-1.1) Eosinophils # (Auto) 0.0 x10^3/uL (0.0-0.7) Basophils # (Auto) 0.0 x10^3/uL (0.0-0.2) Sodium Level 138 mmol/L (136-145) Potassium Level 2.9 mmol/L (3.5-5.1) Chloride Level 105 mmol/L (98-107) Carbon Dioxide Level 20 mmol/L (21-32) Anion Gap 13 (6-14) Blood Urea Nitrogen 18 mg/dL (7-20) Creatinine 0.9 mg/dL (0.6-1.0) Estimated GFR (Cockcroft-Gault) 66.5 BUN/Creatinine Ratio 20 (6-20) Glucose Level 164 mg/dL (70-99) Calcium Level 8.4 mg/dL (8.5-10.1) Total Bilirubin 0.8 mg/dL (0.2-1.0) Aspartate Amino Transf (AST/SGOT) 19 U/L (15-37) Alanine Aminotransferase (ALT/SGPT) 21 U/L (14-59) Alkaline Phosphatase 136 U/L (46-116) Total Protein 7.1 g/dL (6.4-8.2) Albumin 2.3 g/dL (3.4-5.0) Albumin/Globulin Ratio 0.5 (1.0-1.7) Laboratory Tests Test 09/30/17 11:14 09/30/17 15:55 09/30/17 16:34 09/30/17 20:45 Glucose (Fingerstick) 193 mg/dL (70-99) 194 mg/dL (70-99) 163 mg/dL (70-99) Lactic Acid Level 0.8 mmol/L (0.4-2.0) Test 10/01/17 07:21 10/01/17 07:44 White Blood Count 15.0 x10^3/uL (4.0-11.0) Red Blood Count 4.15 x10^6/uL (3.50-5.40) Hemoglobin 12.3 g/dL (12.0-15.5) Hematocrit 36.4 % (36.0-47.0) Mean Corpuscular Volume 88 fL (79-100) Mean Corpuscular Hemoglobin 30 pg (25-35) Mean Corpuscular Hemoglobin Concent 34 g/dL (31-37) Red Cell Distribution Width 13.5 % (11.5-14.5) Platelet Count 151 x10^3/uL (140-400) Neutrophils (%) (Auto) 86 % (31-73) Lymphocytes (%) (Auto) 5 % (24-48) Monocytes (%) (Auto) 10 % (0-9) Eosinophils (%) (Auto) 0 % (0-3) Basophils (%) (Auto) 0 % (0-3) Neutrophils # (Auto) 12.8 x10^3uL (1.8-7.7) Lymphocytes # (Auto) 0.7 x10^3/uL (1.0-4.8) Monocytes # (Auto) 1.4 x10^3/uL (0.0-1.1) Eosinophils # (Auto) 0.0 x10^3/uL (0.0-0.7) Basophils # (Auto) 0.0 x10^3/uL (0.0-0.2) Sodium Level 138 mmol/L (136-145) Potassium Level 2.9 mmol/L (3.5-5.1) Chloride Level 105 mmol/L (98-107) Carbon Dioxide Level 20 mmol/L (21-32) Anion Gap 13 (6-14) Blood Urea Nitrogen 18 mg/dL (7-20) Creatinine 0.9 mg/dL (0.6-1.0) Estimated GFR (Cockcroft-Gault) 66.5 BUN/Creatinine Ratio 20 (6-20) Glucose Level 164 mg/dL (70-99) Calcium Level 8.4 mg/dL (8.5-10.1) Total Bilirubin 0.8 mg/dL (0.2-1.0) Aspartate Amino Transf (AST/SGOT) 19 U/L (15-37) Alanine Aminotransferase (ALT/SGPT) 21 U/L (14-59) Alkaline Phosphatase 136 U/L (46-116) Total Protein 7.1 g/dL (6.4-8.2) Albumin 2.3 g/dL (3.4-5.0) Albumin/Globulin Ratio 0.5 (1.0-1.7) Glucose (Fingerstick) 144 mg/dL (70-99) Medications Current Medications Fentanyl Citrate (Fentanyl 2ml Vial) 50 mcg 1X ONCE IV Last administered on at 23:00; Start 09/29/17 at 23:00; Stop 09/29/17 at 23:01; Status DC Sodium Chloride 1,000 ml @ 1,000 mls/hr 1X ONCE IV Last administered on at 23:00; Start 09/29/17 at 23:00; Stop 09/29/17 at 23:59; Status DC Ondansetron HCl (Zofran) 4 mg 1X ONCE IV Last administered on 09/29/17at 23:00 ; Start 09/29/17 at 23:00; Stop 09/29/17 at 23:01; Status DC Piperacillin Sod/ Tazobactam Sod 3.375 gm/Sodium Chloride 50 ml @ 100 mls/hr 1X ONCE IV Last administered on 09/30/17at 00:15; Start 09/30/17 at 00:15; Stop 09/30/17 at 00:44; Status DC Morphine Sulfate (Morphine Sulfate) 2 mg PRN Q2HR PRN IV PAIN Last administered on 09/30/17at 05:19; Start 09/30/17 at 01:15; Stop 09/30/17 at 09:49 ; Status DC Sodium Chloride 1,000 ml @ 150 mls/hr Q6H40M IV Last administered on at 20:56; Start 09/30/17 at 01:15; Stop 10/01/17 at 01:14; Status DC Insulin Human Lispro (HumaLOG) 0-7 UNITS TIDWMEALS SQ Last administered on 09/30at 06:54; Start 09/30/17 at 08:00 Dextrose (Dextrose 50%-Water Syringe) 12.5 gm PRN Q15MIN PRN IV SEE COMMENTS; Start 09/30/17 at 01:30 Pantoprazole Sodium (PROTONIX VIAL for IV PUSH) 40 mg DAILYAC IVP ; Start at 07:30 Fentanyl Citrate (Fentanyl 2ml Vial) 50 mcg 1X ONCE IV Last administered on at 06:34; Start 09/30/17 at 06:30; Stop 09/30/17 at 06:31; Status DC Ondansetron HCl (Zofran) 4 mg PRN Q6HRS PRN IV NAUSEA/VOMITING; Start 09/30/17 at 07:00; Stop 09/30/17 at 19:00; Status DC Fentanyl Citrate (Fentanyl 2ml Vial) 25 mcg PRN Q5MIN PRN IV MILD PAIN; Start 09/30/17 at 07:00; Stop 09/30/17 at 19:00; Status DC Fentanyl Citrate (Fentanyl 2ml Vial) 50 mcg PRN Q5MIN PRN IV MODERATE TO SEVERE PAIN Last administered on 09/30/17at 10:17; Start 09/30/17 at 07:00; Stop 09/30/17 at 19:00; Status DC Morphine Sulfate (Morphine Sulfate) 1 mg PRN Q10MIN PRN IV SEVERE PAIN; Start 09/30/17 at 07:00; Stop 09/30/17 at 19:00; Status DC Ringer's Solution 1,000 ml @ 30 mls/hr Q24H IV Last administered on 09/30/17at 07:15; Start 09/30/17 at 06:55; Stop 09/30/17 at 18:54; Status DC Lidocaine HCl (Xylocaine-Mpf 1% 2ml Vial) 2 ml 1X PRN PRN ID IV START; Start at 07:00; Stop 09/30/17 at 19:00; Status DC Hydromorphone HCl (Dilaudid) 0.5 mg PRN Q10MIN PRN IV SEV PAIN, Second choice; Start 09/30/17 at 07:00; Stop 09/30/17 at 19:00; Status DC Prochlorperazine Edisylate (Compazine) 5 mg PACU PRN PRN IV NAUSEA, MRX1; Start 09/30/17 at 07:00; Stop 09/30/17 at 19:00; Status DC Bupivacaine HCl/ Epinephrine Bitart (Marcaine-Epi 0.5%-[id number]) 50 ml STK-MED ONCE .ROUTE ; Start 09/30/17 at 06:02; Stop 09/30/17 at 07:03; Status DC Bacitracin (Bacitracin) 50,000 unit STK-MED ONCE IRR ; Start 09/30/17 at 06:03; Stop 09/30/17 at 07:03; Status DC Cefazolin Sodium/ Dextrose 50 ml @ As Directed STK-MED ONCE IV ; Start 09/30/17 at 07:10; Stop 09/30/17 at 07:11; Status DC Fentanyl Citrate (Fentanyl 5ml Vial) 250 mcg STK-MED ONCE .ROUTE ; Start at 07:14; Stop 09/30/17 at 07:15; Status DC Phenylephrine HCl (PHENYLEPHRINE in 0.9% NACL PF) 1 mg STK-MED ONCE IV ; Start 09/30/17 at 07:15; Stop 8/23/18 at 07:16; Status DC Propofol 20 ml @ As Directed STK-MED ONCE IV ; Start 09/30/17 at 07:16; Stop at 07:17; Status DC Dexamethasone Sodium Phosphate (Decadron) 20 mg STK-MED ONCE .ROUTE ; Start at 07:16; Stop 09/30/17 at 07:17; Status DC Ondansetron HCl (Zofran) 4 mg STK-MED ONCE .ROUTE ; Start 09/30/17 at 07:16; Stop 09/30/17 at 07:17; Status DC Insulin Aspart (NovoLOG VIAL) 4 unit 1X ONCE SQ Last administered on at 07:26; Start 09/30/17 at 07:30; Stop 09/30/17 at 07:31; Status DC Rocuronium [place] (Zemuron) 50 mg STK-MED ONCE .ROUTE ; Start 09/30/17 at 07:44 ; Stop 09/30/17 at 07:45; Status DC Cefazolin Sodium/ Dextrose 50 ml @ 100 mls/hr 1X PREOP PRN IV Pre Op dose; Start 09/30/17 at 08:00; Stop 09/30/17 at 13:00; Status DC Bupivacaine HCl/ Epinephrine Bitart (Marcaine-Epi 0.5%-1:[id number]) 50 ml STK-MED ONCE IJ Last administered on 09/30/17at 08:05; Start 09/30/17 at 08:05; Stop at 09:01; Status DC Neostigmine Methylsulfate (Neostigmine Methylsulfate) 5 mg STK-MED ONCE .ROUTE ; Start 09/30/17 at 08:53; Stop 09/30/17 at 08:54; Status DC Glycopyrrolate (Robinul) 1 mg STK-MED ONCE .ROUTE ; Start 09/30/17 at 08:54; Stop 09/30/17 at 08:55; Status DC Cefoxitin Sodium 1 gm/Dextrose 50 ml @ 100 mls/hr Q6H IV ; Start 09/30/17 at 09 :45; Stop 09/30/17 at 22:14; Status UNV Famotidine (Pepcid Vial) 20 mg BID IVP Last administered on 10/01/17at 08:40; Start 09/30/17 at 11:00; Stop 10/01/17 at 09:39; Status DC Enoxaparin Sodium (Lovenox 40mg Syringe) 40 mg Q24H SQ Last administered on at 08:41; Start 10/01/17 at 09:00 Sodium Chloride (Normal Saline Flush) 3 ml QSHIFT PRN IV AFTER MEDS AND BLOOD DRAWS; Start 09/30/17 at 09:45 Ringer's Solution 1,000 ml @ 100 mls/hr Q10H IV ; Start 09/30/17 at 11:00; Stop 10/01/17 at 08:41; Status DC Naloxone HCl (Narcan) 0.4 mg PRN Q2MIN PRN IV SEE INSTRUCTIONS; Start 09/30/17 at 09:45 Sodium Chloride 1,000 ml @ 25 mls/hr Q24H IV Last administered on 10/01/17at 04 :09; Start 09/30/17 at 10:00 Morphine Sulfate 30 ml @ 0 mls/hr CONT PRN PRN IV PER PROTOCOL Last administered on 09/30/17at 10:12; Start 09/30/17 at 10:00 Ondansetron HCl (Zofran) 4 mg PRN Q6HRS PRN IV NAUESA, 1ST CHOICE; Start at 09:45 Cefoxitin Sodium (Mefoxin) 1 gm Q6H IVP Last administered on 10/01/17at 04:11; Start 09/30/17 at 14:00; Stop 10/01/17 at 02:01; Status DC Insulin Aspart (NovoLOG VIAL) 6 unit 1X PACU ONCE SQ Last administered on 09/30at 09:59; Start 09/30/17 at 10:00; Stop 09/30/17 at 10:01; Status DC Fentanyl Citrate (Fentanyl 2ml Vial) 100 mcg STK-MED ONCE .ROUTE ; Start at 09:51; Stop 09/30/17 at 09:52; Status DC Cefazolin Sodium/ Dextrose (Ancef 2gm Premix) 2 gm STK-MED ONCE IV ; Start 09/30 at 08:00; Stop 09/30/17 at 13:21; Status DC Piperacillin Sod/ Tazobactam Sod 3.375 gm/Sodium Chloride 50 ml @ 100 mls/hr Q6HRS IV Last administered on 10/01/17at 06:10; Start 09/30/17 at 18:00 Potassium Chloride/Sodium Chloride 1,000 ml @ 80 mls/hr [id number] IV Last administered on 10/01/17at 09:31; Start 10/01/17 at 09:30 Potassium Chloride (Klor-Con) 40 meq 1X ONCE PO Last administered on at 09:30; Start 10/01/17 at 09:30; Stop 10/01/17 at 09:31; Status DC Potassium Chloride (Klor-Con) 40 meq [id number] PO ; Start 10/02/17 at 08:00 Active Scripts Active Reported [novolog] TIDAC [lantus] HS [bipolar medicine ?] Vitals/I & O Vital Sign - Last 24 Hours 09/30/17 09/30/17 09/30/17 09/30/17 09:53 09:58 10:08 10:12 Temp 98.9 98.9 Pulse 104 103 Resp 16 18 18 B/P (MAP) 155/90 149/88 Pulse Ox 98 96 98 O2 Delivery Nasal Cannula Room Air Nasal Cannula O2 Flow Rate 2 2 09/30/17 09/30/17 09/30/17 09/30/17 10:17 10:23 10:38 11:00 Temp 98.7 98.0 98.7 98.0 Pulse 105 102 95 Resp 18 18 18 20 B/P (MAP) 153/91 145/82 145/84 (104) Pulse Ox 98 98 95 O2 Delivery Nasal Cannula Nasal Cannula Room Air Nasal Cannula O2 Flow Rate 2.0 2 2.0 09/30/17 09/30/17 09/30/17 09/30/17 11:15 11:25 11:31 11:46 Pulse 99 97 89 Resp 20 20 20 B/P (MAP) 146/81 (102) 148/85 (106) 145/82 (103) Pulse Ox 98 98 99 O2 Delivery Nasal Cannula Nasal Cannula Nasal Cannula Nasal Cannula O2 Flow Rate 2.0 2.0 2.0 2.0 09/30/17 09/30/17 09/30/17 09/30/17 12:01 12:30 13:05 14:00 Pulse 92 108 111 Resp 20 20 20 B/P (MAP) 143/81 (101) 156/95 (115) 144/96 (112) Pulse Ox 99 98 98 O2 Delivery Nasal Cannula Nasal Cannula Nasal Cannula Nasal Cannula O2 Flow Rate 2.0 2.0 2.0 2.0 09/30/17 09/30/17 09/30/17 09/30/17 15:00 16:00 19:00 20:00 Temp 98.1 98.1 Pulse 116 112 107 Resp 20 20 18 B/P (MAP) 151/89 (109) 136/81 (99) 121/72 (88) Pulse Ox 99 99 99 O2 Delivery Nasal Cannula Nasal Cannula Nasal Cannula Nasal Cannula O2 Flow Rate 2.0 2.0 2.0 2.0 09/30/17 10/01/17 10/01/17 23:00 03:00 07:00 Temp 97.8 97.1 98.1 97.8 97.1 98.1 Pulse 92 79 85 Resp 17 17 16 B/P (MAP) 138/74 (95) 129/79 (96) 132/72 (92) Pulse Ox 99 96 98 O2 Delivery Nasal Cannula Nasal Cannula Nasal Cannula O2 Flow Rate 2.0 2.0 2.0 Intake and Output 09/30/17 09/30/17 10/01/17 15:00 23:00 07:00 Intake Total 140 ml Output Total 610 ml 750 ml Balance -610 ml -750 ml 140 ml LORA BENTLEY MD Oct 01, 2017 09:52
--- NOTE | 2017-10-01 10:30 | PDOC ---
Infectious Disease Note Vital Sign Vital Signs Vital Signs Date Time Temp Pulse Resp B/P (MAP) Pulse Ox O2 Delivery O2 Flow Rate FiO2 10/01/17 07:00 98.1 85 16 132/72 (92) 98 Nasal Cannula 2.0 98.1 Labs Lab Laboratory Tests Test 09/30/17 11:14 09/30/17 15:55 09/30/17 16:34 09/30/17 20:45 Glucose (Fingerstick) 193 mg/dL (70-99) 194 mg/dL (70-99) 163 mg/dL (70-99) Lactic Acid Level 0.8 mmol/L (0.4-2.0) Test 10/01/17 07:21 10/01/17 07:44 White Blood Count 15.0 x10^3/uL (4.0-11.0) Red Blood Count 4.15 x10^6/uL (3.50-5.40) Hemoglobin 12.3 g/dL (12.0-15.5) Hematocrit 36.4 % (36.0-47.0) Mean Corpuscular Volume 88 fL (79-100) Mean Corpuscular Hemoglobin 30 pg (25-35) Mean Corpuscular Hemoglobin Concent 34 g/dL (31-37) Red Cell Distribution Width 13.5 % (11.5-14.5) Platelet Count 151 x10^3/uL (140-400) Neutrophils (%) (Auto) 86 % (31-73) Lymphocytes (%) (Auto) 5 % (24-48) Monocytes (%) (Auto) 10 % (0-9) Eosinophils (%) (Auto) 0 % (0-3) Basophils (%) (Auto) 0 % (0-3) Neutrophils # (Auto) 12.8 x10^3uL (1.8-7.7) Lymphocytes # (Auto) 0.7 x10^3/uL (1.0-4.8) Monocytes # (Auto) 1.4 x10^3/uL (0.0-1.1) Eosinophils # (Auto) 0.0 x10^3/uL (0.0-0.7) Basophils # (Auto) 0.0 x10^3/uL (0.0-0.2) Sodium Level 138 mmol/L (136-145) Potassium Level 2.9 mmol/L (3.5-5.1) Chloride Level 105 mmol/L (98-107) Carbon Dioxide Level 20 mmol/L (21-32) Anion Gap 13 (6-14) Blood Urea Nitrogen 18 mg/dL (7-20) Creatinine 0.9 mg/dL (0.6-1.0) Estimated GFR (Cockcroft-Gault) 66.5 BUN/Creatinine Ratio 20 (6-20) Glucose Level 164 mg/dL (70-99) Calcium Level 8.4 mg/dL (8.5-10.1) Total Bilirubin 0.8 mg/dL (0.2-1.0) Aspartate Amino Transf (AST/SGOT) 19 U/L (15-37) Alanine Aminotransferase (ALT/SGPT) 21 U/L (14-59) Alkaline Phosphatase 136 U/L (46-116) Total Protein 7.1 g/dL (6.4-8.2) Albumin 2.3 g/dL (3.4-5.0) Albumin/Globulin Ratio 0.5 (1.0-1.7) Glucose (Fingerstick) 144 mg/dL (70-99) Objective Assessment Perforated ulcer s/p surgery Leukocytosis Low grade fever Cirrhosis Plan Plan of Care cont zosyn, soon to change to po supportive care MAN ZAPATA MD Oct 01, 2017 10:30
[2017-10-01 11:00] VITALS: BP 130/74
[2017-10-01 15:00] VITALS: BP 137/78
--- NOTE | 2017-10-01 20:03 | CONS ---
DATE OF CONSULTATION: 10/01/2017 REQUESTING PHYSICIAN: Perry Duarte MD. REASON FOR CONSULTATION: Pneumoperitoneum. HISTORY OF PRESENT ILLNESS: This is a 47-year-old female who had a couple of day history of nausea, vomiting, not feeling well, diarrhea, then abdominal pain. Initially, she thought it was the flu, ended up coming here. She had a pneumoperitoneum. The patient was taken to the OR and was found to have perforated gastric ulcer. The patient underwent gastric ulcer repair with Praveen patch. The patient still has NG tube, but she has been started on liquid diet. The patient is receiving Zosyn and feeling much better. The patient denied any, when she came in, she had low-grade fever and did have leukocytosis. Denies any nausea, vomiting, diarrhea, chest pain, shortness of breath, abdominal pain, now urinary symptoms. PAST MEDICAL HISTORY: Positive for she was told that she may have cirrhosis of liver, although she has never been alcohol use, so it is unclear etiology for her cirrhosis. The patient also takes a lot of ibuprofen orally for the back pain. The patient does have history of cholelithiasis and cholecystectomy. SOCIAL HISTORY: Negative for smoking, alcohol use or drug use. ALLERGIES: LISTED ALLERGIC TO SULFA. CURRENT MEDICATIONS: Reviewed. The patient is on Zosyn. REVIEW OF SYSTEMS: As per HPI, all other systems reviewed are negative. PHYSICAL EXAMINATION: GENERAL: Alert, oriented female, not in any distress. VITAL SIGNS: Stable, afebrile. The patient did have when she came in was 99.7. HEENT: Anicteric. NECK: Supple, no JVP, no lymphadenopathy. LUNGS: Clear. HEART: S1, S2 regular. ABDOMEN: Post-surgical dressing not opened. Abdomen is slightly tender, but expected from post-surgery. EXTREMITIES: No edema or cyanosis. SKIN: Unremarkable. NEUROLOGIC: The patient is neurologically intact. LABORATORY DATA: White count is 15,000. BUN and creatinine is normal. Potassium is 2.9. Lactic acid was normal. Urinalysis, 5-[address] scan of the abdomen and pelvis reviewed. IMPRESSION: 1. Perforated gastric ulcer, status post repair and Praveen patch. 2. Leukocytosis. 3. Low-grade fever. 4. Cirrhosis of liver. PLAN: Recommend continue Zosyn for the time being, soon to be able to switch over to the p.o. Augmentin. Supportive care and we will continue to follow. Thank you very much, Dr. Duarte for giving me the opportunity to participate in this patient's care. MAN ZAPATA MD DR: RIVERA/elvia JOB#: [id number] / [id number]
[2017-10-01 20:09] VITALS: BP 144/83
[2017-10-01] MEDS: LACTOBACILLUS RHAMNOSUS GG 1 CAPSULE. PO SCH (20:55)
[2017-10-01 23:00] VITALS: BP 135/85
[2017-10-02 03:17] VITALS: BP 140/87
[2017-10-02 05:07] LABS: HEMATOCRIT 34.3 % (36.0-47.0); HEMOGLOBIN 11.8 g/dL (12.0-15.5); RED BLOOD COUNT 3.99 x10^6/uL (3.50-5.40); RED CELL DISTRIBUTION WIDTH 13.5 % (11.5-14.5); WHITE BLOOD COUNT 11.4 x10^3/uL (4.0-11.0)
[2017-10-02] MEDS: PIPERACILLIN/TAZOBACTAM 3.375 GM in IV NORMAL SALINE 50ML 50 ML IV SCH ×2 (05:36→13:04)
[2017-10-02 05:42] LABS: CALCIUM 7.9 mg/dL (8.5-10.1); CREATININE 0.7 mg/dL (0.6-1.0); GFR 88.9; MAGNESIUM 1.8 mg/dL (1.8-2.4); POTASSIUM 3.3 mmol/L (3.5-5.1)
[2017-10-02] MEDS: MORPHINE SULFATE/PF 30 ML IV PRN (07:08)
[2017-10-02 07:50] VITALS: BP 136/84
[2017-10-02] MEDS: PANTOPRAZOLE IV PUSH 40 MG VIAL. IVP SCH (08:28)
[2017-10-02] MEDS: LACTOBACILLUS RHAMNOSUS GG 1 CAPSULE. PO SCH ×2 (08:28→22:37)
[2017-10-02] MEDS: POTASSIUM CHLORIDE 20 MEQ TABLET.ER. PO SCH (08:28)
[2017-10-02] MEDS: ENOXAPARIN 40 MG/0.4 ML SYRINGE. SQ SCH (08:29)
[2017-10-02] MEDS: INSULIN LISPRO 300 UNITS/3 ML INSULN.PEN. SQ SCH ×3 (08:48→18:17)
--- NOTE | 2017-10-02 09:01 | PDOC ---
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 10/02/17 0901: SURGICAL PROGRESS NOTE Subjective ng very bothersome + stool tolerating clears tolerated NG clamping Vital Signs Vital Signs Date Time Temp Pulse Resp B/P (MAP) Pulse Ox O2 Delivery O2 Flow Rate FiO2 10/02/17 07:50 98.1 72 18 136/84 (101) 97 Room Air 98.1 10/01/17 15:00 2.0 I&O Intake and Output 10/02/17 07:00 Intake Total 1680 ml Output Total 0 ml Balance 1680 ml Intake Oral 680 ml IV Total 1000 ml Output Urine Total 0 ml # Voids 4 # Bowel Movements 1 General: Alert, Oriented X3, Cooperative, No acute distress Abdomen: Soft, Other (incision c/d/i, no erythema) Labs Laboratory Tests Test 09/30/17 09:34 09/30/17 11:14 09/30/17 15:55 09/30/17 16:34 Glucose (Fingerstick) 223 mg/dL (70-99) 193 mg/dL (70-99) 194 mg/dL (70-99) Lactic Acid Level 0.8 mmol/L (0.4-2.0) Test 09/30/17 20:45 10/01/17 07:21 10/01/17 07:44 10/01/17 11:50 Glucose (Fingerstick) 163 mg/dL (70-99) 144 mg/dL (70-99) 229 mg/dL (70-99) White Blood Count 15.0 x10^3/uL (4.0-11.0) Red Blood Count 4.15 x10^6/uL (3.50-5.40) Hemoglobin 12.3 g/dL (12.0-15.5) Hematocrit 36.4 % (36.0-47.0) Mean Corpuscular Volume 88 fL (79-100) Mean Corpuscular Hemoglobin 30 pg (25-35) Mean Corpuscular Hemoglobin Concent 34 g/dL (31-37) Red Cell Distribution Width 13.5 % (11.5-14.5) Platelet Count 151 x10^3/uL (140-400) Neutrophils (%) (Auto) 86 % (31-73) Lymphocytes (%) (Auto) 5 % (24-48) Monocytes (%) (Auto) 10 % (0-9) Eosinophils (%) (Auto) 0 % (0-3) Basophils (%) (Auto) 0 % (0-3) Neutrophils # (Auto) 12.8 x10^3uL (1.8-7.7) Lymphocytes # (Auto) 0.7 x10^3/uL (1.0-4.8) Monocytes # (Auto) 1.4 x10^3/uL (0.0-1.1) Eosinophils # (Auto) 0.0 x10^3/uL (0.0-0.7) Basophils # (Auto) 0.0 x10^3/uL (0.0-0.2) Sodium Level 138 mmol/L (136-145) Potassium Level 2.9 mmol/L (3.5-5.1) Chloride Level 105 mmol/L (98-107) Carbon Dioxide Level 20 mmol/L (21-32) Anion Gap 13 (6-14) Blood Urea Nitrogen 18 mg/dL (7-20) Creatinine 0.9 mg/dL (0.6-1.0) Estimated GFR (Cockcroft-Gault) 66.5 BUN/Creatinine Ratio 20 (6-20) Glucose Level 164 mg/dL (70-99) Calcium Level 8.4 mg/dL (8.5-10.1) Total Bilirubin 0.8 mg/dL (0.2-1.0) Aspartate Amino Transf (AST/SGOT) 19 U/L (15-37) Alanine Aminotransferase (ALT/SGPT) 21 U/L (14-59) Alkaline Phosphatase 136 U/L (46-116) Total Protein 7.1 g/dL (6.4-8.2) Albumin 2.3 g/dL (3.4-5.0) Albumin/Globulin Ratio 0.5 (1.0-1.7) Test 10/01/17 16:44 10/01/17 21:07 10/02/17 03:50 10/02/17 07:33 Glucose (Fingerstick) 272 mg/dL (70-99) 208 mg/dL (70-99) 196 mg/dL (70-99) White Blood Count 11.4 x10^3/uL (4.0-11.0) Red Blood Count 3.99 x10^6/uL (3.50-5.40) Hemoglobin 11.8 g/dL (12.0-15.5) Hematocrit 34.3 % (36.0-47.0) Mean Corpuscular Volume 86 fL (79-100) Mean Corpuscular Hemoglobin 30 pg (25-35) Mean Corpuscular Hemoglobin Concent 34 g/dL (31-37) Red Cell Distribution Width 13.5 % (11.5-14.5) Platelet Count 169 x10^3/uL (140-400) Sodium Level 135 mmol/L (136-145) Potassium Level 3.3 mmol/L (3.5-5.1) Chloride Level 104 mmol/L (98-107) Carbon Dioxide Level 23 mmol/L (21-32) Anion Gap 8 (6-14) Blood Urea Nitrogen 12 mg/dL (7-20) Creatinine 0.7 mg/dL (0.6-1.0) Estimated GFR (Cockcroft-Gault) 88.9 Glucose Level 212 mg/dL (70-99) Calcium Level 7.9 mg/dL (8.5-10.1) Magnesium Level 1.8 mg/dL (1.8-2.4) Laboratory Tests Test 10/01/17 11:50 10/01/17 16:44 10/01/17 21:07 10/02/17 03:50 Glucose (Fingerstick) 229 mg/dL (70-99) 272 mg/dL (70-99) 208 mg/dL (70-99) White Blood Count 11.4 x10^3/uL (4.0-11.0) Red Blood Count 3.99 x10^6/uL (3.50-5.40) Hemoglobin 11.8 g/dL (12.0-15.5) Hematocrit 34.3 % (36.0-47.0) Mean Corpuscular Volume 86 fL (79-100) Mean Corpuscular Hemoglobin 30 pg (25-35) Mean Corpuscular Hemoglobin Concent 34 g/dL (31-37) Red Cell Distribution Width 13.5 % (11.5-14.5) Platelet Count 169 x10^3/uL (140-400) Sodium Level 135 mmol/L (136-145) Potassium Level 3.3 mmol/L (3.5-5.1) Chloride Level 104 mmol/L (98-107) Carbon Dioxide Level 23 mmol/L (21-32) Anion Gap 8 (6-14) Blood Urea Nitrogen 12 mg/dL (7-20) Creatinine 0.7 mg/dL (0.6-1.0) Estimated GFR (Cockcroft-Gault) 88.9 Glucose Level 212 mg/dL (70-99) Calcium Level 7.9 mg/dL (8.5-10.1) Magnesium Level 1.8 mg/dL (1.8-2.4) Test 10/02/17 07:33 Glucose (Fingerstick) 196 mg/dL (70-99) Problem List Problems Medical Problems: (1) Hyperglycemia Status: Acute (2) Pneumoperitoneum Status: Acute Assessment/Plan clears today NG out advance diet tomorrow if does well EMMANUEL GORDILLO MD 10/02/17 1649: SURGICAL PROGRESS NOTE Assessment/Plan Agree with Arabella's assessment and plan. CYRUS KHOURY APRN Oct 02, 2017 09:01 EMMANUEL GORDILLO MD Oct 02, 2017 16:49
--- NOTE | 2017-10-02 09:43 | PDOC ---
PROGRESS NOTES Chief Complaint Chief Complaint Pneumoperitoneum from perforated stomach status post surgery 09/30/17 Critical hypokalemia Reactive leukocytosis postsurgery Acute abdominal pain secondary to above, on [employer] Chronic back pain, NSAID use prior to surgery History of Present Illness History of Present Illness NG-tube out and she feels much better Tolerating liquid diet Ambulating about Still on [employer] pump, she has been pressing more often since she has been ambulating more today The wbc better, 11.5 from 15-no fevers Potassium better 3.3 from 2+ Plan:Ambulate ad kaye Liquid diet for now possibly to upgrade tomorrow per GS Continue current KCl regimen, it is coming up K will start picking up as soon as she eats I think we can start weaning [employer] pump later this PM Discussed with her Vitals Vitals Vital Signs Date Time Temp Pulse Resp B/P (MAP) Pulse Ox O2 Delivery O2 Flow Rate FiO2 10/02/17 07:50 98.1 72 18 136/84 (101) 97 Room Air 98.1 10/01/17 15:00 2.0 Physical Exam General: Alert, Oriented X3, Cooperative, No acute distress Heart: Regular rate Abdomen: Soft, Other (incision c/d/i, no erythema) Extremities: No cyanosis Skin: Other (right hand skin changes) Labs LABS Laboratory Tests Test 10/01/17 11:50 10/01/17 16:44 10/01/17 21:07 10/02/17 03:50 Glucose (Fingerstick) 229 mg/dL (70-99) 272 mg/dL (70-99) 208 mg/dL (70-99) White Blood Count 11.4 x10^3/uL (4.0-11.0) Red Blood Count 3.99 x10^6/uL (3.50-5.40) Hemoglobin 11.8 g/dL (12.0-15.5) Hematocrit 34.3 % (36.0-47.0) Mean Corpuscular Volume 86 fL (79-100) Mean Corpuscular Hemoglobin 30 pg (25-35) Mean Corpuscular Hemoglobin Concent 34 g/dL (31-37) Red Cell Distribution Width 13.5 % (11.5-14.5) Platelet Count 169 x10^3/uL (140-400) Sodium Level 135 mmol/L (136-145) Potassium Level 3.3 mmol/L (3.5-5.1) Chloride Level 104 mmol/L (98-107) Carbon Dioxide Level 23 mmol/L (21-32) Anion Gap 8 (6-14) Blood Urea Nitrogen 12 mg/dL (7-20) Creatinine 0.7 mg/dL (0.6-1.0) Estimated GFR (Cockcroft-Gault) 88.9 Glucose Level 212 mg/dL (70-99) Calcium Level 7.9 mg/dL (8.5-10.1) Magnesium Level 1.8 mg/dL (1.8-2.4) Test 10/02/17 07:33 Glucose (Fingerstick) 196 mg/dL (70-99) Review of Systems Review of Systems Still has soreness otherwise rest of ROS negative Assessment and Plan Assessmemt and Plan Problems Medical Problems: (1) Hyperglycemia Status: Acute (2) Pneumoperitoneum Status: Acute Comment Review of Relevant I have reviewed the following items jana (where applicable) has been applied. Labs Laboratory Tests Test 09/30/17 11:14 09/30/17 15:55 09/30/17 16:34 09/30/17 20:45 Glucose (Fingerstick) 193 mg/dL (70-99) 194 mg/dL (70-99) 163 mg/dL (70-99) Lactic Acid Level 0.8 mmol/L (0.4-2.0) Test 10/01/17 07:21 10/01/17 07:44 10/01/17 11:50 10/01/17 16:44 White Blood Count 15.0 x10^3/uL (4.0-11.0) Red Blood Count 4.15 x10^6/uL (3.50-5.40) Hemoglobin 12.3 g/dL (12.0-15.5) Hematocrit 36.4 % (36.0-47.0) Mean Corpuscular Volume 88 fL (79-100) Mean Corpuscular Hemoglobin 30 pg (25-35) Mean Corpuscular Hemoglobin Concent 34 g/dL (31-37) Red Cell Distribution Width 13.5 % (11.5-14.5) Platelet Count 151 x10^3/uL (140-400) Neutrophils (%) (Auto) 86 % (31-73) Lymphocytes (%) (Auto) 5 % (24-48) Monocytes (%) (Auto) 10 % (0-9) Eosinophils (%) (Auto) 0 % (0-3) Basophils (%) (Auto) 0 % (0-3) Neutrophils # (Auto) 12.8 x10^3uL (1.8-7.7) Lymphocytes # (Auto) 0.7 x10^3/uL (1.0-4.8) Monocytes # (Auto) 1.4 x10^3/uL (0.0-1.1) Eosinophils # (Auto) 0.0 x10^3/uL (0.0-0.7) Basophils # (Auto) 0.0 x10^3/uL (0.0-0.2) Sodium Level 138 mmol/L (136-145) Potassium Level 2.9 mmol/L (3.5-5.1) Chloride Level 105 mmol/L (98-107) Carbon Dioxide Level 20 mmol/L (21-32) Anion Gap 13 (6-14) Blood Urea Nitrogen 18 mg/dL (7-20) Creatinine 0.9 mg/dL (0.6-1.0) Estimated GFR (Cockcroft-Gault) 66.5 BUN/Creatinine Ratio 20 (6-20) Glucose Level 164 mg/dL (70-99) Calcium Level 8.4 mg/dL (8.5-10.1) Total Bilirubin 0.8 mg/dL (0.2-1.0) Aspartate Amino Transf (AST/SGOT) 19 U/L (15-37) Alanine Aminotransferase (ALT/SGPT) 21 U/L (14-59) Alkaline Phosphatase 136 U/L (46-116) Total Protein 7.1 g/dL (6.4-8.2) Albumin 2.3 g/dL (3.4-5.0) Albumin/Globulin Ratio 0.5 (1.0-1.7) Glucose (Fingerstick) 144 mg/dL (70-99) 229 mg/dL (70-99) 272 mg/dL (70-99) Test 10/01/17 21:07 10/02/17 03:50 10/02/17 07:33 Glucose (Fingerstick) 208 mg/dL (70-99) 196 mg/dL (70-99) White Blood Count 11.4 x10^3/uL (4.0-11.0) Red Blood Count 3.99 x10^6/uL (3.50-5.40) Hemoglobin 11.8 g/dL (12.0-15.5) Hematocrit 34.3 % (36.0-47.0) Mean Corpuscular Volume 86 fL (79-100) Mean Corpuscular Hemoglobin 30 pg (25-35) Mean Corpuscular Hemoglobin Concent 34 g/dL (31-37) Red Cell Distribution Width 13.5 % (11.5-14.5) Platelet Count 169 x10^3/uL (140-400) Sodium Level 135 mmol/L (136-145) Potassium Level 3.3 mmol/L (3.5-5.1) Chloride Level 104 mmol/L (98-107) Carbon Dioxide Level 23 mmol/L (21-32) Anion Gap 8 (6-14) Blood Urea Nitrogen 12 mg/dL (7-20) Creatinine 0.7 mg/dL (0.6-1.0) Estimated GFR (Cockcroft-Gault) 88.9 Glucose Level 212 mg/dL (70-99) Calcium Level 7.9 mg/dL (8.5-10.1) Magnesium Level 1.8 mg/dL (1.8-2.4) Laboratory Tests Test 10/01/17 11:50 10/01/17 16:44 10/01/17 21:07 10/02/17 03:50 Glucose (Fingerstick) 229 mg/dL (70-99) 272 mg/dL (70-99) 208 mg/dL (70-99) White Blood Count 11.4 x10^3/uL (4.0-11.0) Red Blood Count 3.99 x10^6/uL (3.50-5.40) Hemoglobin 11.8 g/dL (12.0-15.5) Hematocrit 34.3 % (36.0-47.0) Mean Corpuscular Volume 86 fL (79-100) Mean Corpuscular Hemoglobin 30 pg (25-35) Mean Corpuscular Hemoglobin Concent 34 g/dL (31-37) Red Cell Distribution Width 13.5 % (11.5-14.5) Platelet Count 169 x10^3/uL (140-400) Sodium Level 135 mmol/L (136-145) Potassium Level 3.3 mmol/L (3.5-5.1) Chloride Level 104 mmol/L (98-107) Carbon Dioxide Level 23 mmol/L (21-32) Anion Gap 8 (6-14) Blood Urea Nitrogen 12 mg/dL (7-20) Creatinine 0.7 mg/dL (0.6-1.0) Estimated GFR (Cockcroft-Gault) 88.9 Glucose Level 212 mg/dL (70-99) Calcium Level 7.9 mg/dL (8.5-10.1) Magnesium Level 1.8 mg/dL (1.8-2.4) Test 10/02/17 07:33 Glucose (Fingerstick) 196 mg/dL (70-99) Microbiology 09/29/17 Urine Culture - Preliminary, Resulted 09/29/17 Urine Culture Result 1 (MARTIN) - Preliminary, Resulted Medications Current Medications Fentanyl Citrate (Fentanyl 2ml Vial) 50 mcg 1X ONCE IV Last administered on at 23:00; Start 09/29/17 at 23:00; Stop 09/29/17 at 23:01; Status DC Sodium Chloride 1,000 ml @ 1,000 mls/hr 1X ONCE IV Last administered on at 23:00; Start 09/29/17 at 23:00; Stop 09/29/17 at 23:59; Status DC Ondansetron HCl (Zofran) 4 mg 1X ONCE IV Last administered on 09/29/17at 23:00 ; Start 09/29/17 at 23:00; Stop 09/29/17 at 23:01; Status DC Piperacillin Sod/ Tazobactam Sod 3.375 gm/Sodium Chloride 50 ml @ 100 mls/hr 1X ONCE IV Last administered on 09/30/17at 00:15; Start 09/30/17 at 00:15; Stop 09/30/17 at 00:44; Status DC Morphine Sulfate (Morphine Sulfate) 2 mg PRN Q2HR PRN IV PAIN Last administered on 09/30/17at 05:19; Start 09/30/17 at 01:15; Stop 09/30/17 at 09:49 ; Status DC Sodium Chloride 1,000 ml @ 150 mls/hr Q6H40M IV Last administered on at 20:56; Start 09/30/17 at 01:15; Stop 10/01/17 at 01:14; Status DC Insulin Human Lispro (HumaLOG) 0-7 UNITS TIDWMEALS SQ Last administered on 10/02at 08:48; Start 09/30/17 at 08:00 Dextrose (Dextrose 50%-Water Syringe) 12.5 gm PRN Q15MIN PRN IV SEE COMMENTS; Start 09/30/17 at 01:30 Pantoprazole Sodium (PROTONIX VIAL for IV PUSH) 40 mg DAILYAC IVP Last administered on 10/02/17at 08:28; Start 09/30/17 at 07:30 Fentanyl Citrate (Fentanyl 2ml Vial) 50 mcg 1X ONCE IV Last administered on at 06:34; Start 09/30/17 at 06:30; Stop 09/30/17 at 06:31; Status DC Ondansetron HCl (Zofran) 4 mg PRN Q6HRS PRN IV NAUSEA/VOMITING; Start 09/30/17 at 07:00; Stop 09/30/17 at 19:00; Status DC Fentanyl Citrate (Fentanyl 2ml Vial) 25 mcg PRN Q5MIN PRN IV MILD PAIN; Start 09/30/17 at 07:00; Stop 09/30/17 at 19:00; Status DC Fentanyl Citrate (Fentanyl 2ml Vial) 50 mcg PRN Q5MIN PRN IV MODERATE TO SEVERE PAIN Last administered on 09/30/17at 10:17; Start 09/30/17 at 07:00; Stop 09/30/17 at 19:00; Status DC Morphine Sulfate (Morphine Sulfate) 1 mg PRN Q10MIN PRN IV SEVERE PAIN; Start 09/30/17 at 07:00; Stop 09/30/17 at 19:00; Status DC Ringer's Solution 1,000 ml @ 30 mls/hr Q24H IV Last administered on 09/30/17at 07:15; Start 09/30/17 at 06:55; Stop 09/30/17 at 18:54; Status DC Lidocaine HCl (Xylocaine-Mpf 1% 2ml Vial) 2 ml 1X PRN PRN ID IV START; Start at 07:00; Stop 09/30/17 at 19:00; Status DC Hydromorphone HCl (Dilaudid) 0.5 mg PRN Q10MIN PRN IV SEV PAIN, Second choice; Start 09/30/17 at 07:00; Stop 09/30/17 at 19:00; Status DC Prochlorperazine Edisylate (Compazine) 5 mg PACU PRN PRN IV NAUSEA, MRX1; Start 09/30/17 at 07:00; Stop 09/30/17 at 19:00; Status DC Bupivacaine HCl/ Epinephrine Bitart (Marcaine-Epi 0.5%-[id number]) 50 ml STK-MED ONCE .ROUTE ; Start 09/30/17 at 06:02; Stop 09/30/17 at 07:03; Status DC Bacitracin (Bacitracin) 50,000 unit STK-MED ONCE IRR ; Start 09/30/17 at 06:03; Stop 09/30/17 at 07:03; Status DC Cefazolin Sodium/ Dextrose 50 ml @ As Directed STK-MED ONCE IV ; Start 09/30/17 at 07:10; Stop 09/30/17 at 07:11; Status DC Fentanyl Citrate (Fentanyl 5ml Vial) 250 mcg STK-MED ONCE .ROUTE ; Start at 07:14; Stop 09/30/17 at 07:15; Status DC Phenylephrine HCl (PHENYLEPHRINE in 0.9% NACL PF) 1 mg STK-MED ONCE IV ; Start 09/30/17 at 07:15; Stop 09/30/17 at 07:16; Status DC Propofol 20 ml @ As Directed STK-MED ONCE IV ; Start 09/30/17 at 07:16; Stop at 07:17; Status DC Dexamethasone Sodium Phosphate (Decadron) 20 mg STK-MED ONCE .ROUTE ; Start at 07:16; Stop 09/30/17 at 07:17; Status DC Ondansetron HCl (Zofran) 4 mg STK-MED ONCE .ROUTE ; Start 09/30/17 at 07:16; Stop 09/30/17 at 07:17; Status DC Insulin Aspart (NovoLOG VIAL) 4 unit 1X ONCE SQ Last administered on at 07:26; Start 09/30/17 at 07:30; Stop 09/30/17 at 07:31; Status DC Rocuronium [place] (Zemuron) 50 mg STK-MED ONCE .ROUTE ; Start 09/30/17 at 07:44 ; Stop 09/30/17 at 07:45; Status DC Cefazolin Sodium/ Dextrose 50 ml @ 100 mls/hr 1X PREOP PRN IV Pre Op dose; Start 09/30/17 at 08:00; Stop 09/30/17 at 13:00; Status DC Bupivacaine HCl/ Epinephrine Bitart (Marcaine-Epi 0.5%-1:[id number]) 50 ml STK-MED ONCE IJ Last administered on 09/30/17at 08:05; Start 09/30/17 at 08:05; Stop at 09:01; Status DC Neostigmine Methylsulfate (Neostigmine Methylsulfate) 5 mg STK-MED ONCE .ROUTE ; Start 09/30/17 at 08:53; Stop 09/30/17 at 08:54; Status DC Glycopyrrolate (Robinul) 1 mg STK-MED ONCE .ROUTE ; Start 09/30/17 at 08:54; Stop 09/30/17 at 08:55; Status DC Cefoxitin Sodium 1 gm/Dextrose 50 ml @ 100 mls/hr Q6H IV ; Start 09/30/17 at 09 :45; Stop 09/30/17 at 22:14; Status UNV Famotidine (Pepcid Vial) 20 mg BID IVP Last administered on 10/01/17at 08:40; Start 09/30/17 at 11:00; Stop 10/01/17 at 09:39; Status DC Enoxaparin Sodium (Lovenox 40mg Syringe) 40 mg Q24H SQ Last administered on at 08:29; Start 10/01/17 at 09:00 Sodium Chloride (Normal Saline Flush) 3 ml QSHIFT PRN IV AFTER MEDS AND BLOOD DRAWS; Start 09/30/17 at 09:45 Ringer's Solution 1,000 ml @ 100 mls/hr Q10H IV ; Start 09/30/17 at 11:00; Stop 10/01/17 at 08:41; Status DC Naloxone HCl (Narcan) 0.4 mg PRN Q2MIN PRN IV SEE INSTRUCTIONS; Start 09/30/17 at 09:45 Sodium Chloride 1,000 ml @ 25 mls/hr Q24H IV Last administered on 10/01/17at 04 :09; Start 09/30/17 at 10:00 Morphine Sulfate 30 ml @ 0 mls/hr CONT PRN PRN IV PER PROTOCOL Last administered on 10/02/17at 07:08; Start 09/30/17 at 10:00 Ondansetron HCl (Zofran) 4 mg PRN Q6HRS PRN IV NAUESA, 1ST CHOICE; Start at 09:45 Cefoxitin Sodium (Mefoxin) 1 gm Q6H IVP Last administered on 10/01/17at 04:11; Start 09/30/17 at 14:00; Stop 10/01/17 at 02:01; Status DC Insulin Aspart (NovoLOG VIAL) 6 unit 1X PACU ONCE SQ Last administered on 09/30at 09:59; Start 09/30/17 at 10:00; Stop 09/30/17 at 10:01; Status DC Fentanyl Citrate (Fentanyl 2ml Vial) 100 mcg STK-MED ONCE .ROUTE ; Start at 09:51; Stop 09/30/17 at 09:52; Status DC Cefazolin Sodium/ Dextrose (Ancef 2gm Premix) 2 gm STK-MED ONCE IV ; Start 09/30 at 08:00; Stop 09/30/17 at 13:21; Status DC Piperacillin Sod/ Tazobactam Sod 3.375 gm/Sodium Chloride 50 ml @ 100 mls/hr Q6HRS IV Last administered on 10/02/17at 05:36; Start 09/30/17 at 18:00 Potassium Chloride/Sodium Chloride 1,000 ml @ 80 mls/hr [id number] IV Last administered on 10/01/17at 22:19; Start 10/01/17 at 09:30 Potassium Chloride (Klor-Con) 40 meq 1X ONCE PO Last administered on at 09:30; Start 10/01/17 at 09:30; Stop 10/01/17 at 09:31; Status DC Potassium Chloride (Klor-Con) 40 meq [id number] PO Last administered on at 08:28; Start 10/02/17 at 08:00 Lactobacillus Rhamnosus (Culturelle) 1 cap BID PO Last administered on at 08:28; Start 10/01/17 at 21:00 Active Scripts Active Reported [novolog] TIDAC [lantus] HS [bipolar medicine ?] Vitals/I & O Vital Sign - Last 24 Hours 10/01/17 10/01/17 10/01/17 10/01/17 11:00 15:00 19:59 20:09 Temp 97.9 98.9 98.1 97.9 98.9 98.1 Pulse 86 87 82 Resp 18 18 19 B/P (MAP) 130/74 (92) 137/78 (97) 144/83 (103) Pulse Ox 97 99 97 O2 Delivery Nasal Cannula Nasal Cannula Room Air Room Air O2 Flow Rate 2.0 2.0 10/01/17 10/01/17 10/02/17 10/02/17 20:45 23:00 03:17 07:08 Temp 98.2 98.5 98.2 98.5 Pulse 79 79 Resp 19 18 20 B/P (MAP) 135/85 (102) 140/87 (104) Pulse Ox 97 96 O2 Delivery Room Air Room Air Room Air Room Air 10/02/17 10/02/17 07:38 07:50 Temp 98.1 98.1 Pulse 72 Resp 18 18 B/P (MAP) 136/84 (101) Pulse Ox 97 97 O2 Delivery Room Air Room Air Intake and Output 10/01/17 10/01/17 10/02/17 15:00 23:00 07:00 Intake Total 1680 ml Output Total 0 ml Balance 1680 ml 0 ml LORA BENTLEY MD Oct 02, 2017 09:43
[2017-10-02] MEDS: IV NORMAL SALINE 1000ML BAG 1,000 ML IV SCH (10:00)
[2017-10-02 11:00] VITALS: BP 148/63
--- NOTE | 2017-10-02 11:03 | PDOC ---
Infectious Disease Note Subjective Subjective Pain controlled + flatus and BM Tolerating clear liquids well Been walking to the bathroom No F/C/N/V Vital Sign Vital Signs Vital Signs Date Time Temp Pulse Resp B/P (MAP) Pulse Ox O2 Delivery O2 Flow Rate FiO2 10/02/17 07:50 98.1 72 18 136/84 (101) 97 Room Air 98.1 10/01/17 15:00 2.0 Physical Exam PHYSICAL EXAM GENERAL: Propped up in bed with ice bag lying on her abdomen HEENT: Oral cavity dry NECK: Supple LUNGS: Clear HEART: S1, S2 ABDOMEN: Obese, BS present, soft, tender. incision approx, Riddhi intact . No area redness. EXTREMITIES: No edema or cyanosis. SKIN: warm without rash NEUROLOGIC: Alert and oriented PIV o Labs Lab Laboratory Tests Test 10/01/17 11:50 10/01/17 16:44 10/01/17 21:07 10/02/17 03:50 Glucose (Fingerstick) 229 mg/dL (70-99) 272 mg/dL (70-99) 208 mg/dL (70-99) White Blood Count 11.4 x10^3/uL (4.0-11.0) Red Blood Count 3.99 x10^6/uL (3.50-5.40) Hemoglobin 11.8 g/dL (12.0-15.5) Hematocrit 34.3 % (36.0-47.0) Mean Corpuscular Volume 86 fL (79-100) Mean Corpuscular Hemoglobin 30 pg (25-35) Mean Corpuscular Hemoglobin Concent 34 g/dL (31-37) Red Cell Distribution Width 13.5 % (11.5-14.5) Platelet Count 169 x10^3/uL (140-400) Sodium Level 135 mmol/L (136-145) Potassium Level 3.3 mmol/L (3.5-5.1) Chloride Level 104 mmol/L (98-107) Carbon Dioxide Level 23 mmol/L (21-32) Anion Gap 8 (6-14) Blood Urea Nitrogen 12 mg/dL (7-20) Creatinine 0.7 mg/dL (0.6-1.0) Estimated GFR (Cockcroft-Gault) 88.9 Glucose Level 212 mg/dL (70-99) Calcium Level 7.9 mg/dL (8.5-10.1) Magnesium Level 1.8 mg/dL (1.8-2.4) Test 10/02/17 07:33 Glucose (Fingerstick) 196 mg/dL (70-99) Micro URINE CULTURE RES 1 Preliminary Escherichia coli Greater than 100,000 colony forming units per mL Objective Assessment Perforated gastric ulcer, status post repair and Praveen patch on 09/30. Leukocytosis - improving Low-grade fever -improved Cirrhosis of liver. E. coli in urine from 09/29. Plan Plan of Care cont Zosyn, soon to change to po supportive care Attending Co-Sign The patient was seen and interviewed as well as examined at the bedside. The chart was reviewed. The case was discussed. Agree with the plan of care. SAUNDRA GAN APRN Oct 02, 2017 11:03 MAN ZAPATA MD Oct 02, 2017 15:50
[2017-10-02] MEDS: POTASSIUM CL 40MEQ IN 0.9%NACL 1,000 ML IV SCH (13:04)
[2017-10-02 15:00] VITALS: BP 145/60
[2017-10-02] MEDS ORDERED: MAGNESIUM HYDROXIDE 2,400 MG/30 ML ORAL.SUSP. PO ONE (16:30)
[2017-10-02] MEDS ORDERED: MAGNESIUM HYDROXIDE 2,400 MG/30 ML ORAL.SUSP. PO PRN (16:30)
[2017-10-02] MEDS ORDERED: fentaNYL PF VIAL 100 MCG/2 ML VIAL IV PRN (16:30)
[2017-10-02] MEDS: oxyCODONE/APAP 10/325 1 TAB TABLET PO PRN ×2 (18:08→22:41)
[2017-10-02 19:59] VITALS: BP 138/89
[2017-10-02] MEDS: AMOXICILLIN/K CLAV 875/125MG TABLET. PO SCH (22:37)
[2017-10-02 22:59] VITALS: BP 130/83
[2017-10-03] MEDS: POTASSIUM CL 40MEQ IN 0.9%NACL 1,000 ML IV SCH (02:28)
[2017-10-03 03:59] VITALS: BP 133/79
[2017-10-03] MEDS: oxyCODONE/APAP 10/325 1 TAB TABLET PO PRN ×4 (04:41→19:35)
[2017-10-03 07:00] VITALS: BP 155/78
--- NOTE | 2017-10-03 07:40 | PDOC ---
Infectious Disease Note Subjective Subjective feeling good ROS ROS no n/v/d/sob Vital Sign Vital Signs Vital Signs Date Time Temp Pulse Resp B/P (MAP) Pulse Ox O2 Delivery O2 Flow Rate FiO2 10/03/17 05:41 Room Air 10/03/17 03:59 98.0 70 18 133/79 (97) 96 98.0 Physical Exam PHYSICAL EXAM GENERAL: Propped up in bed with ice bag lying on her abdomen HEENT: Oral cavity dry NECK: Supple LUNGS: Clear HEART: S1, S2 ABDOMEN: Obese, BS present, soft, tender. incision approx, Riddhi intact . No area redness. EXTREMITIES: No edema or cyanosis. SKIN: warm without rash NEUROLOGIC: Alert and oriented PIV o Labs Lab Laboratory Tests Test 10/02/17 11:18 10/02/17 16:19 10/02/17 20:34 Glucose (Fingerstick) 187 mg/dL (70-99) 172 mg/dL (70-99) 145 mg/dL (70-99) Micro URINE CULTURE Final Final report URINE CULTURE RES 1 Final Escherichia coli Greater than 100,000 colony forming units per mL Cefazolin <=4 ug/mL Cefazolin with an MARTIN <=16 predicts susceptibility to the oral agents cefaclor, cefdinir, cefpodoxime, cefprozil, cefuroxime, cephalexin, and loracarbef when used for therapy of uncomplicated urinary tract infections due to E. coli, Klebsiella pneumoniae, and Proteus mirabilis. ANTIMICROBIAL SUSCEPTIBILITY Final Comment S = Susceptible; I = Intermediate; R = Resistant P = Positive; N = Negative MICS are expressed in micrograms per mL Antibiotic RSLT#1 RSLT#2 RSLT#3 RSLT#4 Amoxicillin/Clavulanic Acid S =4 Ampicillin S =8 Cefepime S<=0.12 Ceftriaxone S<=0.25 Cefuroxime I =8 Ciprofloxacin S<=0.25 Ertapenem S<=0.12 Gentamicin S<=1 Imipenem S<=0.25 Levofloxacin S<=0.12 Meropenem S<=0.25 Nitrofurantoin S<=16 Piperacillin/Tazobactam S<=4 Tetracycline S<=1 Tobramycin S<=1 Trimethoprim/Sulfa S<=20 Performed at: [facility] [id number], [place], [place] [id number] Objective Assessment Perforated ulcer s/p surgery Leukocytosis Low grade fever Cirrhosis UTI Plan Plan of Care po augmentin supportive care MAN ZAPATA MD Oct 03, 2017 07:40
[2017-10-03] MEDS: INSULIN LISPRO 300 UNITS/3 ML INSULN.PEN. SQ SCH ×3 (08:00→17:00)
[2017-10-03] MEDS: POLYETHYLENE GLYCOL 3350 17 GM PACKET. PO SCH (09:00)
--- NOTE | 2017-10-03 09:53 | PDOC ---
CYRUS KHOURY POLITICAL ANTHROPOLOGIST 10/03/17 0953: SURGICAL PROGRESS NOTE Subjective tolerating diet pain managed Vital Signs Vital Signs Date Time Temp Pulse Resp B/P (MAP) Pulse Ox O2 Delivery O2 Flow Rate FiO2 10/03/17 07:00 97.9 70 16 155/78 (103) 99 Room Air 97.9 I&O Intake and Output 10/03/17 07:00 Intake Total 1620 ml Output Total 350 ml Balance 1270 ml Intake Oral 1620 ml Output Urine Total 350 ml # Voids 2 # Bowel Movements 2 General: Alert, Oriented X3, Cooperative, No acute distress Abdomen: Soft, Other (incision c/d/i, no erythema) Labs Laboratory Tests Test 10/01/17 11:50 10/01/17 16:44 10/01/17 21:07 10/02/17 03:50 Glucose (Fingerstick) 229 mg/dL (70-99) 272 mg/dL (70-99) 208 mg/dL (70-99) White Blood Count 11.4 x10^3/uL (4.0-11.0) Red Blood Count 3.99 x10^6/uL (3.50-5.40) Hemoglobin 11.8 g/dL (12.0-15.5) Hematocrit 34.3 % (36.0-47.0) Mean Corpuscular Volume 86 fL (79-100) Mean Corpuscular Hemoglobin 30 pg (25-35) Mean Corpuscular Hemoglobin Concent 34 g/dL (31-37) Red Cell Distribution Width 13.5 % (11.5-14.5) Platelet Count 169 x10^3/uL (140-400) Sodium Level 135 mmol/L (136-145) Potassium Level 3.3 mmol/L (3.5-5.1) Chloride Level 104 mmol/L (98-107) Carbon Dioxide Level 23 mmol/L (21-32) Anion Gap 8 (6-14) Blood Urea Nitrogen 12 mg/dL (7-20) Creatinine 0.7 mg/dL (0.6-1.0) Estimated GFR (Cockcroft-Gault) 88.9 Glucose Level 212 mg/dL (70-99) Calcium Level 7.9 mg/dL (8.5-10.1) Magnesium Level 1.8 mg/dL (1.8-2.4) Test 8/25/18 07:33 10/02/17 11:18 10/02/17 16:19 10/02/17 20:34 Glucose (Fingerstick) 196 mg/dL (70-99) 187 mg/dL (70-99) 172 mg/dL (70-99) 145 mg/dL (70-99) Laboratory Tests Test 10/02/17 11:18 10/02/17 16:19 10/02/17 20:34 Glucose (Fingerstick) 187 mg/dL (70-99) 172 mg/dL (70-99) 145 mg/dL (70-99) Problem List Problems Medical Problems: (1) Hyperglycemia Status: Acute (2) Pneumoperitoneum Status: Acute Assessment/Plan advance diet EMMANUEL GORDILLO MD 10/03/17 1248: SURGICAL PROGRESS NOTE Assessment/Plan Patient stable no acute changes agree with Floridalma assessment and plan on advancing diet CYRUS KHOURY APRN Oct 03, 2017 09:53 EMMANUEL GORDILLO MD Oct 03, 2017 12:48
[2017-10-03] MEDS: IV NORMAL SALINE 1000ML BAG 1,000 ML IV SCH (10:00)
[2017-10-03] MEDS: POTASSIUM CHLORIDE 20 MEQ TABLET.ER. PO SCH (10:38)
[2017-10-03] MEDS: AMOXICILLIN/K CLAV 875/125MG TABLET. PO SCH ×2 (10:39→21:46)
[2017-10-03] MEDS: DOCUSATE SODIUM 100 MG CAPSULE. PO SCH (10:40)
[2017-10-03] MEDS: LACTOBACILLUS RHAMNOSUS GG 1 CAPSULE. PO SCH ×2 (10:40→21:46)
--- NOTE | 2017-10-03 10:57 | PDOC ---
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 But back is bothersome to her-she has chronic back pain for which was taking NSAIDs regularly hence ended up with a pneumoperitoneum Plan: Upgrade to GI soft - Okayed by GS Trial of Lidoderm patch for back pain Continue current treatment regimen likely be able to discharge tomorrow Vitals Vitals Vital Signs Date Time Temp Pulse Resp B/P (MAP) Pulse Ox O2 Delivery O2 Flow Rate FiO2 10/03/17 10:40 18 Room Air 10/03/17 07:00 97.9 70 155/78 (103) 99 97.9 Physical Exam Physical Exam GENERAL: Propped up in bed with ice bag lying on her abdomen HEENT: Oral cavity dry NECK: Supple LUNGS: Clear HEART: S1, S2 ABDOMEN: Obese, BS present, soft, tender. incision approx, Riddhi intact . No area redness. EXTREMITIES: No edema or cyanosis. SKIN: warm without rash NEUROLOGIC: Alert and oriented PIV o General: Alert, Oriented X3, Cooperative, No acute distress Heart: Regular rate Lungs: Clear Abdomen: Normal bowel sounds, Soft, Other (incision c/d/i, no erythema) Extremities: No cyanosis Skin: Other (right hand skin changes) Labs LABS Laboratory Tests Test 10/02/17 11:18 10/02/17 16:19 10/02/17 20:34 Glucose (Fingerstick) 187 mg/dL (70-99) 172 mg/dL (70-99) 145 mg/dL (70-99) Review of Systems Review of Systems back pain otherwise the rest of ROS 14 point negative Assessment and Plan Assessmemt and Plan Problems Medical Problems: (1) Hyperglycemia Status: Acute (2) Pneumoperitoneum Status: Acute Comment Review of Relevant I have reviewed the following items jana (where applicable) has been applied. Labs Laboratory Tests Test 10/01/17 11:50 10/01/17 16:44 10/01/17 21:07 10/02/17 03:50 Glucose (Fingerstick) 229 mg/dL (70-99) 272 mg/dL (70-99) 208 mg/dL (70-99) White Blood Count 11.4 x10^3/uL (4.0-11.0) Red Blood Count 3.99 x10^6/uL (3.50-5.40) Hemoglobin 11.8 g/dL (12.0-15.5) Hematocrit 34.3 % (36.0-47.0) Mean Corpuscular Volume 86 fL (79-100) Mean Corpuscular Hemoglobin 30 pg (25-35) Mean Corpuscular Hemoglobin Concent 34 g/dL (31-37) Red Cell Distribution Width 13.5 % (11.5-14.5) Platelet Count 169 x10^3/uL (140-400) Sodium Level 135 mmol/L (136-145) Potassium Level 3.3 mmol/L (3.5-5.1) Chloride Level 104 mmol/L (98-107) Carbon Dioxide Level 23 mmol/L (21-32) Anion Gap 8 (6-14) Blood Urea Nitrogen 12 mg/dL (7-20) Creatinine 0.7 mg/dL (0.6-1.0) Estimated GFR (Cockcroft-Gault) 88.9 Glucose Level 212 mg/dL (70-99) Calcium Level 7.9 mg/dL (8.5-10.1) Magnesium Level 1.8 mg/dL (1.8-2.4) Test 10/02/17 07:33 10/02/17 11:18 10/02/17 16:19 10/02/17 20:34 Glucose (Fingerstick) 196 mg/dL (70-99) 187 mg/dL (70-99) 172 mg/dL (70-99) 145 mg/dL (70-99) Laboratory Tests Test 10/02/17 11:18 10/02/17 16:19 10/02/17 20:34 Glucose (Fingerstick) 187 mg/dL (70-99) 172 mg/dL (70-99) 145 mg/dL (70-99) Microbiology 09/29/17 Urine Culture - Final, Complete 09/29/17 Urine Culture Result 1 (MARTIN) - Final, Complete 09/29/17 Antimicrobic Susceptibility - Final, Complete Medications Current Medications Fentanyl Citrate (Fentanyl 2ml Vial) 50 mcg 1X ONCE IV Last administered on at 23:00; Start 09/29/17 at 23:00; Stop 09/29/17 at 23:01; Status DC Sodium Chloride 1,000 ml @ 1,000 mls/hr 1X ONCE IV Last administered on at 23:00; Start 09/29/17 at 23:00; Stop 09/29/17 at 23:59; Status DC Ondansetron HCl (Zofran) 4 mg 1X ONCE IV Last administered on 09/29/17at 23:00 ; Start 09/29/17 at 23:00; Stop 09/29/17 at 23:01; Status DC Piperacillin Sod/ Tazobactam Sod 3.375 gm/Sodium Chloride 50 ml @ 100 mls/hr 1X ONCE IV Last administered on 09/30/17at 00:15; Start 09/30/17 at 00:15; Stop 09/30/17 at 00:44; Status DC Morphine Sulfate (Morphine Sulfate) 2 mg PRN Q2HR PRN IV PAIN Last administered on 09/30/17at 05:19; Start 09/30/17 at 01:15; Stop 09/30/17 at 09:49 ; Status DC Sodium Chloride 1,000 ml @ 150 mls/hr Q6H40M IV Last administered on at 20:56; Start 09/30/17 at 01:15; Stop 10/01/17 at 01:14; Status DC Insulin Human Lispro (HumaLOG) 0-7 UNITS TIDWMEALS SQ Last administered on 10/02at 18:17; Start 09/30/17 at 08:00 Dextrose (Dextrose 50%-Water Syringe) 12.5 gm PRN Q15MIN PRN IV SEE COMMENTS; Start 09/30/17 at 01:30 Pantoprazole Sodium (PROTONIX VIAL for IV PUSH) 40 mg DAILYAC IVP Last administered on 10/02/17at 08:28; Start 09/30/17 at 07:30; Stop 10/03/17 at 09:19 ; Status DC Fentanyl Citrate (Fentanyl 2ml Vial) 50 mcg 1X ONCE IV Last administered on at 06:34; Start 09/30/17 at 06:30; Stop 09/30/17 at 06:31; Status DC Ondansetron HCl (Zofran) 4 mg PRN Q6HRS PRN IV NAUSEA/VOMITING; Start 09/30/17 at 07:00; Stop 09/30/17 at 19:00; Status DC Fentanyl Citrate (Fentanyl 2ml Vial) 25 mcg PRN Q5MIN PRN IV MILD PAIN; Start 09/30/17 at 07:00; Stop 09/30/17 at 19:00; Status DC Fentanyl Citrate (Fentanyl 2ml Vial) 50 mcg PRN Q5MIN PRN IV MODERATE TO SEVERE PAIN Last administered on 09/30/17at 10:17; Start 09/30/17 at 07:00; Stop 09/30/17 at 19:00; Status DC Morphine Sulfate (Morphine Sulfate) 1 mg PRN Q10MIN PRN IV SEVERE PAIN; Start 09/30/17 at 07:00; Stop 09/30/17 at 19:00; Status DC Ringer's Solution 1,000 ml @ 30 mls/hr Q24H IV Last administered on 09/30/17at 07:15; Start 09/30/17 at 06:55; Stop 09/30/17 at 18:54; Status DC Lidocaine HCl (Xylocaine-Mpf 1% 2ml Vial) 2 ml 1X PRN PRN ID IV START; Start at 07:00; Stop 09/30/17 at 19:00; Status DC Hydromorphone HCl (Dilaudid) 0.5 mg PRN Q10MIN PRN IV SEV PAIN, Second choice; Start 09/30/17 at 07:00; Stop 09/30/17 at 19:00; Status DC Prochlorperazine Edisylate (Compazine) 5 mg PACU PRN PRN IV NAUSEA, MRX1; Start 09/30/17 at 07:00; Stop 09/30/17 at 19:00; Status DC Bupivacaine HCl/ Epinephrine Bitart (Marcaine-Epi 0.5%-[id number]) 50 ml STK-MED ONCE .ROUTE ; Start 09/30/17 at 06:02; Stop 09/30/17 at 07:03; Status DC Bacitracin (Bacitracin) 50,000 unit STK-MED ONCE IRR ; Start 09/30/17 at 06:03; Stop 09/30/17 at 07:03; Status DC Cefazolin Sodium/ Dextrose 50 ml @ As Directed STK-MED ONCE IV ; Start 09/30/17 at 07:10; Stop 09/30/17 at 07:11; Status DC Fentanyl Citrate (Fentanyl 5ml Vial) 250 mcg STK-MED ONCE .ROUTE ; Start at 07:14; Stop 09/30/17 at 07:15; Status DC Phenylephrine HCl (PHENYLEPHRINE in 0.9% NACL PF) 1 mg STK-MED ONCE IV ; Start 09/30/17 at 07:15; Stop 09/30/17 at 07:16; Status DC Propofol 20 ml @ As Directed STK-MED ONCE IV ; Start 09/30/17 at 07:16; Stop at 07:17; Status DC Dexamethasone Sodium Phosphate (Decadron) 20 mg STK-MED ONCE .ROUTE ; Start at 07:16; Stop 09/30/17 at 07:17; Status DC Ondansetron HCl (Zofran) 4 mg STK-MED ONCE .ROUTE ; Start 09/30/17 at 07:16; Stop 09/30/17 at 07:17; Status DC Insulin Aspart (NovoLOG VIAL) 4 unit 1X ONCE SQ Last administered on at 07:26; Start 09/30/17 at 07:30; Stop 09/30/17 at 07:31; Status DC Rocuronium [place] (Zemuron) 50 mg STK-MED ONCE .ROUTE ; Start 09/30/17 at 07:44 ; Stop 09/30/17 at 07:45; Status DC Cefazolin Sodium/ Dextrose 50 ml @ 100 mls/hr 1X PREOP PRN IV Pre Op dose; Start 09/30/17 at 08:00; Stop 09/30/17 at 13:00; Status DC Bupivacaine HCl/ Epinephrine Bitart (Marcaine-Epi 0.5%-1:[id number]) 50 ml STK-MED ONCE IJ Last administered on 09/30/17at 08:05; Start 09/30/17 at 08:05; Stop at 09:01; Status DC Neostigmine Methylsulfate (Neostigmine Methylsulfate) 5 mg STK-MED ONCE .ROUTE ; Start 09/30/17 at 08:53; Stop 09/30/17 at 08:54; Status DC Glycopyrrolate (Robinul) 1 mg STK-MED ONCE .ROUTE ; Start 09/30/17 at 08:54; Stop 09/30/17 at 08:55; Status DC Cefoxitin Sodium 1 gm/Dextrose 50 ml @ 100 mls/hr Q6H IV ; Start 09/30/17 at 09 :45; Stop 09/30/17 at 22:14; Status UNV Famotidine (Pepcid Vial) 20 mg BID IVP Last administered on 10/01/17at 08:40; Start 09/30/17 at 11:00; Stop 10/01/17 at 09:39; Status DC Enoxaparin Sodium (Lovenox 40mg Syringe) 40 mg Q24H SQ Last administered on at 08:29; Start 10/01/17 at 09:00; Stop 10/03/17 at 09:19; Status DC Sodium Chloride (Normal Saline Flush) 3 ml QSHIFT PRN IV AFTER MEDS AND BLOOD DRAWS; Start 09/30/17 at 09:45 Ringer's Solution 1,000 ml @ 100 mls/hr Q10H IV ; Start 09/30/17 at 11:00; Stop 10/01/17 at 08:41; Status DC Naloxone HCl (Narcan) 0.4 mg PRN Q2MIN PRN IV SEE INSTRUCTIONS; Start 09/30/17 at 09:45; Stop 10/03/17 at 09:19; Status DC Sodium Chloride 1,000 ml @ 25 mls/hr Q24H IV Last administered on 10/01/17at 04 :09; Start 09/30/17 at 10:00 Morphine Sulfate 30 ml @ 0 mls/hr CONT PRN PRN IV PER PROTOCOL Last administered on 10/02/17at 07:08; Start 09/30/17 at 10:00; Stop 10/03/17 at 09:19 ; Status DC Ondansetron HCl (Zofran) 4 mg PRN Q6HRS PRN IV NAUESA, 1ST CHOICE; Start at 09:45 Cefoxitin Sodium (Mefoxin) 1 gm Q6H IVP Last administered on 10/01/17at 04:11; Start 09/30/17 at 14:00; Stop 10/01/17 at 02:01; Status DC Insulin Aspart (NovoLOG VIAL) 6 unit 1X PACU ONCE SQ Last administered on 09/30at 09:59; Start 09/30/17 at 10:00; Stop 09/30/17 at 10:01; Status DC Fentanyl Citrate (Fentanyl 2ml Vial) 100 mcg STK-MED ONCE .ROUTE ; Start at 09:51; Stop 09/30/17 at 09:52; Status DC Cefazolin Sodium/ Dextrose (Ancef 2gm Premix) 2 gm STK-MED ONCE IV ; Start 09/30 at 08:00; Stop 09/30/17 at 13:21; Status DC Piperacillin Sod/ Tazobactam Sod 3.375 gm/Sodium Chloride 50 ml @ 100 mls/hr Q6HRS IV Last administered on 10/02/17at 13:04; Start 09/30/17 at 18:00; Stop at 16:36; Status DC Potassium Chloride/Sodium Chloride 1,000 ml @ 80 mls/hr [id number] IV Last administered on 10/03/17at 02:28; Start 10/01/17 at 09:30 Potassium Chloride (Klor-Con) 40 meq 1X ONCE PO Last administered on at 09:30; Start 10/01/17 at 09:30; Stop 10/01/17 at 09:31; Status DC Potassium Chloride (Klor-Con) 40 meq [id number] PO Last administered on at 10:38; Start 10/02/17 at 08:00 Lactobacillus Rhamnosus (Culturelle) 1 cap BID PO Last administered on at 10:40; Start 10/01/17 at 21:00 Amoxicillin/ Clavulanate Potassium (Augmentin 875/ 125mg) 1 tab BID PO Last administered on 10/03/17at 10:39; Start 10/02/17 at 21:00 Polyethylene Glycol (miraLAX PACKET) 17 gm DAILY PO ; Start 10/03/17 at 09:00 Magnesium Hydroxide (Milk Of Magnesia) 2,400 mg 1X ONCE PO Last administered on 10/02/17at 18:06; Start 10/02/17 at 16:30; Stop 10/02/17 at 16:40; Status DC Magnesium Hydroxide (Milk Of Magnesia) 2,400 mg PRN DAILY PRN PO CONSTIPATION; Start 10/02/17 at 16:30 Fentanyl Citrate (Fentanyl 2ml Vial) 50 mcg PRN Q2HR PRN IV PAIN; Start at 16:30 Oxycodone/ Acetaminophen (Percocet 10/325) 1 tab PRN Q4HRS PRN PO PAIN Last administered on 10/03/17at 10:40; Start 10/02/17 at 16:30 Docusate Sodium (Colace) 100 mg DAILY PO Last administered on 10/03/17at 10:40; Start 10/03/17 at 09:00 Active Scripts Active Reported [novolog] TIDAC [lantus] HS [bipolar medicine ?] Vitals/I & O Vital Sign - Last 24 Hours 10/02/17 10/02/17 10/02/17 10/02/17 11:00 15:00 18:08 19:08 Temp 97.9 97.8 97.9 97.8 Pulse 83 80 Resp 20 20 16 18 B/P (MAP) 148/63 (91) 145/60 (88) Pulse Ox 100 100 O2 Delivery Room Air Room Air Room Air 10/02/17 10/02/17 10/02/17 10/02/17 19:59 20:00 22:41 22:59 Temp 98.0 98.0 98.0 98.0 Pulse 86 78 Resp 20 18 B/P (MAP) 138/89 (105) 130/83 (99) Pulse Ox 97 98 O2 Delivery Room Air Room Air Room Air Room Air 10/03/17 10/03/17 10/03/17 10/03/17 03:59 04:41 05:41 07:00 Temp 98.0 97.9 98.0 97.9 Pulse 70 70 Resp 18 16 B/P (MAP) 133/79 (97) 155/78 (103) Pulse Ox 96 99 O2 Delivery Room Air Room Air Room Air Room Air 10/03/17 10:40 Resp 18 O2 Delivery Room Air Intake and Output 10/02/17 10/02/17 10/03/17 15:00 23:00 07:00 Intake Total 1000 ml 620 ml Output Total 350 ml Balance 1000 ml 270 ml LORA BENTLEY MD Oct 03, 2017 10:57
[2017-10-03 11:16] VITALS: BP 154/71
[2017-10-03] MEDS: LIDOCAINE (700MG/PATCH) PATCH. TD SCH (14:54)
[2017-10-03 15:48] VITALS: BP 142/72
[2017-10-03 19:00] VITALS: BP 128/72
[2017-10-03] MEDS: PATCH REMOVAL. MC SCH (21:52)
[2017-10-03 22:59] VITALS: BP 125/68
[2017-10-04] MEDS: oxyCODONE/APAP 10/325 1 TAB TABLET PO PRN ×4 (02:06→17:41)
[2017-10-04] MEDS: ONDANSETRON PF 4 MG/2 ML VIAL. IV PRN ×2 (02:10→09:00)
[2017-10-04 03:00] VITALS: BP 114/66
[2017-10-04 07:00] VITALS: BP 132/81
[2017-10-04] MEDS ORDERED: LIDO700A39 TD (08:35)
[2017-10-04] MEDS ORDERED: AMOX1TAB11 PO (08:35)
[2017-10-04] MEDS ORDERED: OXYC-411 PO (08:35)
[2017-10-04] MEDS: LIDOCAINE (700MG/PATCH) PATCH. TD SCH (09:01)
[2017-10-04] MEDS: LACTOBACILLUS RHAMNOSUS GG 1 CAPSULE. PO SCH ×2 (09:02→21:00)
[2017-10-04] MEDS: AMOXICILLIN/K CLAV 875/125MG TABLET. PO SCH ×2 (09:03→21:00)
[2017-10-04] MEDS: POTASSIUM CHLORIDE 20 MEQ TABLET.ER. PO SCH (09:03)
[2017-10-04] MEDS: DOCUSATE SODIUM 100 MG CAPSULE. PO SCH ×2 (09:03→09:13)
[2017-10-04] MEDS: POLYETHYLENE GLYCOL 3350 17 GM PACKET. PO SCH (09:12)
[2017-10-04] MEDS: INSULIN LISPRO 300 UNITS/3 ML INSULN.PEN. SQ SCH ×3 (09:12→17:52)
--- NOTE | 2017-10-04 09:53 | PDOC ---
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 her I already have Lidoderm patch and Percocet She was taking NSAIDs very regularly because of the pack pain Has never had imaging done in the past No red flags so far for back pain Plan: I did hold off discharge today Consult physiatry MRI thoracic lumbar spine No NSAIDs SOUTH drain accidentally fell off yesterday, so far minimal drainage there Vitals Vitals Vital Signs Date Time Temp Pulse Resp B/P (MAP) Pulse Ox O2 Delivery O2 Flow Rate FiO2 10/04/17 09:03 18 Room Air 10/04/17 07:00 98.3 71 132/81 (98) 100 98.3 10/04/17 03:00 2.0 Physical Exam Physical Exam GENERAL: Propped up in bed with ice bag lying on her abdomen HEENT: Oral cavity dry NECK: Supple LUNGS: Clear HEART: S1, S2 ABDOMEN: Obese, BS present, soft, tender. incision approx, Riddhi intact . No area redness. EXTREMITIES: No edema or cyanosis. SKIN: warm without rash NEUROLOGIC: Alert and oriented PIV o General: Alert, Oriented X3, Cooperative, No acute distress Heart: Regular rate Lungs: Clear Abdomen: Normal bowel sounds, Soft, Other (incision c/d/i, no erythema) Extremities: No cyanosis Skin: Other (right hand skin changes) Labs LABS Laboratory Tests Test 10/04/17 08:38 Glucose (Fingerstick) 219 mg/dL (70-99) Review of Systems Review of Systems back pain, otherwise rest of ROS negative Assessment and Plan Assessmemt and Plan Problems Medical Problems: (1) Hyperglycemia Status: Acute (2) Pneumoperitoneum Status: Acute Comment Review of Relevant I have reviewed the following items jana (where applicable) has been applied. Labs Laboratory Tests Test 10/02/17 11:18 10/02/17 16:19 10/02/17 20:34 10/04/17 08:38 Glucose (Fingerstick) 187 mg/dL (70-99) 172 mg/dL (70-99) 145 mg/dL (70-99) 219 mg/dL (70-99) Laboratory Tests Test 10/04/17 08:38 Glucose (Fingerstick) 219 mg/dL (70-99) Microbiology 09/29/17 Urine Culture - Final, Complete 09/29/17 Urine Culture Result 1 (MARTIN) - Final, Complete 09/29/17 Antimicrobic Susceptibility - Final, Complete Medications Current Medications Fentanyl Citrate (Fentanyl 2ml Vial) 50 mcg 1X ONCE IV Last administered on at 23:00; Start 09/29/17 at 23:00; Stop 09/29/17 at 23:01; Status DC Sodium Chloride 1,000 ml @ 1,000 mls/hr 1X ONCE IV Last administered on at 23:00; Start 09/29/17 at 23:00; Stop 09/29/17 at 23:59; Status DC Ondansetron HCl (Zofran) 4 mg 1X ONCE IV Last administered on 09/29/17at 23:00 ; Start 09/29/17 at 23:00; Stop 09/29/17 at 23:01; Status DC Piperacillin Sod/ Tazobactam Sod 3.375 gm/Sodium Chloride 50 ml @ 100 mls/hr 1X ONCE IV Last administered on 09/30/17at 00:15; Start 09/30/17 at 00:15; Stop 09/30/17 at 00:44; Status DC Morphine Sulfate (Morphine Sulfate) 2 mg PRN Q2HR PRN IV PAIN Last administered on 09/30/17at 05:19; Start 09/30/17 at 01:15; Stop 09/30/17 at 09:49 ; Status DC Sodium Chloride 1,000 ml @ 150 mls/hr Q6H40M IV Last administered on at 20:56; Start 09/30/17 at 01:15; Stop 10/01/17 at 01:14; Status DC Insulin Human Lispro (HumaLOG) 0-7 UNITS TIDWMEALS SQ Last administered on 10/04at 09:12; Start 09/30/17 at 08:00 Dextrose (Dextrose 50%-Water Syringe) 12.5 gm PRN Q15MIN PRN IV SEE COMMENTS; Start 09/30/17 at 01:30 Pantoprazole Sodium (PROTONIX VIAL for IV PUSH) 40 mg DAILYAC IVP Last administered on 10/02/17at 08:28; Start 09/30/17 at 07:30; Stop 10/03/17 at 09:19 ; Status DC Fentanyl Citrate (Fentanyl 2ml Vial) 50 mcg 1X ONCE IV Last administered on at 06:34; Start 09/30/17 at 06:30; Stop 09/30/17 at 06:31; Status DC Ondansetron HCl (Zofran) 4 mg PRN Q6HRS PRN IV NAUSEA/VOMITING; Start 09/30/17 at 07:00; Stop 09/30/17 at 19:00; Status DC Fentanyl Citrate (Fentanyl 2ml Vial) 25 mcg PRN Q5MIN PRN IV MILD PAIN; Start 09/30/17 at 07:00; Stop 09/30/17 at 19:00; Status DC Fentanyl Citrate (Fentanyl 2ml Vial) 50 mcg PRN Q5MIN PRN IV MODERATE TO SEVERE PAIN Last administered on 09/30/17at 10:17; Start 09/30/17 at 07:00; Stop 09/30/17 at 19:00; Status DC Morphine Sulfate (Morphine Sulfate) 1 mg PRN Q10MIN PRN IV SEVERE PAIN; Start 09/30/17 at 07:00; Stop 09/30/17 at 19:00; Status DC Ringer's Solution 1,000 ml @ 30 mls/hr Q24H IV Last administered on 09/30/17at 07:15; Start 09/30/17 at 06:55; Stop 09/30/17 at 18:54; Status DC Lidocaine HCl (Xylocaine-Mpf 1% 2ml Vial) 2 ml 1X PRN PRN ID IV START; Start at 07:00; Stop 09/30/17 at 19:00; Status DC Hydromorphone HCl (Dilaudid) 0.5 mg PRN Q10MIN PRN IV SEV PAIN, Second choice; Start 09/30/17 at 07:00; Stop 09/30/17 at 19:00; Status DC Prochlorperazine Edisylate (Compazine) 5 mg PACU PRN PRN IV NAUSEA, MRX1; Start 09/30/17 at 07:00; Stop 09/30/17 at 19:00; Status DC Bupivacaine HCl/ Epinephrine Bitart (Marcaine-Epi 0.5%-1:[id number]) 50 ml STK-MED ONCE .ROUTE ; Start 09/30/17 at 06:02; Stop 09/30/17 at 07:03; Status DC Bacitracin (Bacitracin) 50,000 unit STK-MED ONCE IRR ; Start 09/30/17 at 06:03; Stop 09/30/17 at 07:03; Status DC Cefazolin Sodium/ Dextrose 50 ml @ As Directed STK-MED ONCE IV ; Start 09/30/17 at 07:10; Stop 09/30/17 at 07:11; Status DC Fentanyl Citrate (Fentanyl 5ml Vial) 250 mcg STK-MED ONCE .ROUTE ; Start at 07:14; Stop 09/30/17 at 07:15; Status DC Phenylephrine HCl (PHENYLEPHRINE in 0.9% NACL PF) 1 mg STK-MED ONCE IV ; Start 09/30/17 at 07:15; Stop 09/30/17 at 07:16; Status DC Propofol 20 ml @ As Directed STK-MED ONCE IV ; Start 09/30/17 at 07:16; Stop at 07:17; Status DC Dexamethasone Sodium Phosphate (Decadron) 20 mg STK-MED ONCE .ROUTE ; Start at 07:16; Stop 09/30/17 at 07:17; Status DC Ondansetron HCl (Zofran) 4 mg STK-MED ONCE .ROUTE ; Start 09/30/17 at 07:16; Stop 09/30/17 at 07:17; Status DC Insulin Aspart (NovoLOG VIAL) 4 unit 1X ONCE SQ Last administered on at 07:26; Start 09/30/17 at 07:30; Stop 09/30/17 at 07:31; Status DC Rocuronium [place] (Zemuron) 50 mg STK-MED ONCE .ROUTE ; Start 09/30/17 at 07:44 ; Stop 09/30/17 at 07:45; Status DC Cefazolin Sodium/ Dextrose 50 ml @ 100 mls/hr 1X PREOP PRN IV Pre Op dose; Start 09/30/17 at 08:00; Stop 09/30/17 at 13:00; Status DC Bupivacaine HCl/ Epinephrine Bitart (Marcaine-Epi 0.5%-1:011785) 50 ml STK-MED ONCE IJ Last administered on 09/30/17at 08:05; Start 09/30/17 at 08:05; Stop at 09:01; Status DC Neostigmine Methylsulfate (Neostigmine Methylsulfate) 5 mg STK-MED ONCE .ROUTE ; Start 09/30/17 at 08:53; Stop 09/30/17 at 08:54; Status DC Glycopyrrolate (Robinul) 1 mg STK-MED ONCE .ROUTE ; Start 09/30/17 at 08:54; Stop 09/30/17 at 08:55; Status DC Cefoxitin Sodium 1 gm/Dextrose 50 ml @ 100 mls/hr Q6H IV ; Start 09/30/17 at 09 :45; Stop 09/30/17 at 22:14; Status UNV Famotidine (Pepcid Vial) 20 mg BID IVP Last administered on 10/01/17at 08:40; Start 09/30/17 at 11:00; Stop 10/01/17 at 09:39; Status DC Enoxaparin Sodium (Lovenox 40mg Syringe) 40 mg Q24H SQ Last administered on at 08:29; Start 10/01/17 at 09:00; Stop 10/03/17 at 09:19; Status DC Sodium Chloride (Normal Saline Flush) 3 ml QSHIFT PRN IV AFTER MEDS AND BLOOD DRAWS; Start 09/30/17 at 09:45 Ringer's Solution 1,000 ml @ 100 mls/hr Q10H IV ; Start 09/30/17 at 11:00; Stop 10/01/17 at 08:41; Status DC Naloxone HCl (Narcan) 0.4 mg PRN Q2MIN PRN IV SEE INSTRUCTIONS; Start 09/30/17 at 09:45; Stop 10/03/17 at 09:19; Status DC Sodium Chloride 1,000 ml @ 25 mls/hr Q24H IV Last administered on 10/01/17at 04 :09; Start 09/30/17 at 10:00 Morphine Sulfate 30 ml @ 0 mls/hr CONT PRN PRN IV PER PROTOCOL Last administered on 10/02/17at 07:08; Start 09/30/17 at 10:00; Stop 10/03/17 at 09:19 ; Status DC Ondansetron HCl (Zofran) 4 mg PRN Q6HRS PRN IV NAUESA, 1ST CHOICE Last administered on 10/04/17at 09:00; Start 09/30/17 at 09:45 Cefoxitin Sodium (Mefoxin) 1 gm Q6H IVP Last administered on 10/01/17at 04:11; Start 09/30/17 at 14:00; Stop 10/01/17 at 02:01; Status DC Insulin Aspart (NovoLOG VIAL) 6 unit 1X PACU ONCE SQ Last administered on 09/30at 09:59; Start 09/30/17 at 10:00; Stop 09/30/17 at 10:01; Status DC Fentanyl Citrate (Fentanyl 2ml Vial) 100 mcg STK-MED ONCE .ROUTE ; Start at 09:51; Stop 09/30/17 at 09:52; Status DC Cefazolin Sodium/ Dextrose (Ancef 2gm Premix) 2 gm STK-MED ONCE IV ; Start 09/30 at 08:00; Stop 09/30/17 at 13:21; Status DC Piperacillin Sod/ Tazobactam Sod 3.375 gm/Sodium Chloride 50 ml @ 100 mls/hr Q6HRS IV Last administered on 10/02/17at 13:04; Start 09/30/17 at 18:00; Stop at 16:36; Status DC Potassium Chloride/Sodium Chloride 1,000 ml @ 80 mls/hr [id number] IV Last administered on 10/03/17at 02:28; Start 10/01/17 at 09:30; Stop 10/03/17 at 10:55 ; Status DC Potassium Chloride (Klor-Con) 40 meq 1X ONCE PO Last administered on at 09:30; Start 10/01/17 at 09:30; Stop 10/01/17 at 09:31; Status DC Potassium Chloride (Klor-Con) 40 meq DAILYWBKFT PO Last administered on at 09:03; Start 10/02/17 at 08:00 Lactobacillus Rhamnosus (Culturelle) 1 cap BID PO Last administered on at 09:02; Start 10/01/17 at 21:00 Amoxicillin/ Clavulanate Potassium (Augmentin 875/ 125mg) 1 tab BID PO Last administered on 10/04/17at 09:03; Start 10/02/17 at 21:00 Polyethylene Glycol (miraLAX PACKET) 17 gm DAILY PO ; Start 10/03/17 at 09:00 Magnesium Hydroxide (Milk Of Magnesia) 2,400 mg 1X ONCE PO Last administered on 10/02/17at 18:06; Start 10/02/17 at 16:30; Stop 10/02/17 at 16:40; Status DC Magnesium Hydroxide (Milk Of Magnesia) 2,400 mg PRN DAILY PRN PO CONSTIPATION; Start 10/02/17 at 16:30 Fentanyl Citrate (Fentanyl 2ml Vial) 50 mcg PRN Q2HR PRN IV PAIN; Start at 16:30 Oxycodone/ Acetaminophen (Percocet 10/325) 1 tab PRN Q4HRS PRN PO PAIN Last administered on 10/04/17at 09:03; Start 10/02/17 at 16:30 Docusate Sodium (Colace) 100 mg DAILY PO Last administered on 10/03/17at 10:40; Start 10/03/17 at 09:00 Lidocaine (Lidoderm) 1 patch DAILY TD Last administered on 10/04/17at 09:01; Start 10/03/17 at 11:00 Miscellaneous (Lidoderm Patch Removal) 1 ea QHS MC Last administered on at 21:52; Start 10/03/17 at 21:00 Active Scripts Active Lidocaine 1 Each Adh..patch 1 Patch TD DAILY 14 Days Oxycodone-Acetaminophen 10-325 (Oxycodone Hcl/Acetaminophen) 1 Each Tablet 1 Tab PO PRN Q4HRS PRN 15 Days Amox Tr-K Clv 875-125 Mg Tab (Amoxicillin/Potassium Clav) 1 Each Tablet 1 Tab PO BID 7 Days Reported [novolog] TIDAC [lantus] HS [bipolar medicine ?] Vitals/I & O Vital Sign - Last 24 Hours 10/03/17 10/03/17 10/03/17 10/03/17 10:40 11:16 14:54 15:48 Temp 97.9 98.1 97.9 98.1 Pulse 80 77 Resp 18 16 16 B/P (MAP) 154/71 (98) 142/72 (95) Pulse Ox 100 99 O2 Delivery Room Air Room Air Room Air Room Air 10/03/17 10/03/17 10/03/17 10/03/17 15:54 19:00 19:35 20:00 Temp 99.2 99.2 Pulse 83 Resp 16 18 B/P (MAP) 128/72 (90) Pulse Ox 100 O2 Delivery Room Air Room Air Room Air 10/03/17 10/04/17 10/04/17 10/04/17 22:59 02:06 03:00 03:06 Temp 98.3 98.3 98.3 98.3 Pulse 63 73 Resp 18 18 B/P (MAP) 125/68 (87) 114/66 (82) Pulse Ox 98 99 O2 Delivery Room Air Room Air Room Air Room Air O2 Flow Rate 2.0 10/04/17 10/04/17 07:00 09:03 Temp 98.3 98.3 Pulse 71 Resp 20 18 B/P (MAP) 132/81 (98) Pulse Ox 100 O2 Delivery Room Air Room Air Intake and Output 10/03/17 10/03/17 10/04/17 15:00 23:00 07:00 Output Total 0 ml Balance 0 ml LORA BENTLEY MD Oct 04, 2017 09:53
[2017-10-04] MEDS: IV NORMAL SALINE 1000ML BAG 1,000 ML IV SCH (10:00)
--- NOTE | 2017-10-04 10:07 | PATHOLOGY ---
[facility] Accession Number: [id number] . 01 Material submitted: . STOMACH ULCER BIOPSY . 01 Clinical history: . Abdominal pain . 02 Diagnosis: Segment of duodenal tissue, stomach ulcer biopsy: - Transmural ulceration and acute inflammation consistent with perforated ulcer. See comment. LBQ/10/02/2017 . 02 Comment: Sections of the stomach ulcer biopsy reveal a segment of duodenal tissue showing transmural ulceration and acute inflammation consistent with perforated ulcer. Properly controlled immunoperoxidase stains for Helicobacter obtained on blocks A1 and A2 are negative for Helicobacter organisms. There is no evidence of malignancy. (JPM/db; 10/02/17) . Special stain performed: Immunoperoxidase stain for Helicobacter on A1 and A2 . 02 Electronically signed: . Joel Feliciano MD, Pathologist NPI- [id number] . 01 Gross description: . The specimen is received in formalin, labeled "Maggy Willett, stomach ulcer biopsy" and consists of a segment of pink-rey soft tissue partially covered by possible mucosa which measures 1.7 x 0.8 x 0.8 cm. It is serially sectioned and entirely submitted in A1-A2. (SDY; 09/30/2017) SYU/SYU . 02 Pathologist provided ICD-10: K25.1 . 02 CPT . 285174, T05101 Performed at: 01 [facility] [address], [place] [id number] MD Yury Martinez MD Phone: [phone] Performed at: 02 [facility] [address], [place] [id number] MD Joel Feliciano MD Phone: [phone]
[2017-10-04 11:00] VITALS: BP 115/65
--- NOTE | 2017-10-04 11:07 | PDOC ---
Infectious Disease Note Subjective: Subjective feeling good no n/v/d ROS: ROS Negative except for above. Vital Signs: Vital Signs Vital Signs Date Time Temp Pulse Resp B/P (MAP) Pulse Ox O2 Delivery O2 Flow Rate FiO2 10/04/17 09:03 18 Room Air 10/04/17 07:00 98.3 71 132/81 (98) 100 98.3 10/04/17 03:00 2.0 Physical Exam: PHYSICAL EXAM GENERAL: Propped up in bed with ice bag lying on her abdomen HEENT: Oral cavity dry NECK: Supple LUNGS: Clear HEART: S1, S2 ABDOMEN: Obese, BS present, soft, tender. incision approx, Riddhi intact . No area redness. EXTREMITIES: No edema or cyanosis. SKIN: warm without rash NEUROLOGIC: Alert and oriented PIV o Medications: Inpatient Meds: Current Medications Medications (Trade) Dose Ordered Sig/Eamon Start Time Stop Time Status Last Admin Dose Admin Amoxicillin/ Clavulanate Potassium (Augmentin 875/ 125mg) 1 tab BID 10/02/17 21:00 10/04/17 09:03 1 TAB Bacitracin (Bacitracin) 50,000 unit STK-MED ONCE 09/30/17 06:03 09/30/17 07:03 DC Bupivacaine HCl/ Epinephrine Bitart (Marcaine-Epi 0.5%-1:195427) 50 ml STK-MED ONCE 09/30/17 08:05 09/30/17 09:01 DC 09/30/17 08:05 4 ML Cefazolin Sodium/ Dextrose (Ancef 2gm Premix) 2 gm STK-MED ONCE 09/30/17 08:00 09/30/17 13:21 DC Cefoxitin Sodium (Mefoxin) 1 gm Q6H 09/30/17 14:00 10/01/17 02:01 DC 10/01/17 04:11 1 GM Cefoxitin Sodium 1 gm/Dextrose 50 ml @ 100 mls/hr Q6H 09/30/17 09:45 09/30/17 22:14 UNV Dexamethasone Sodium Phosphate (Decadron) 20 mg STK-MED ONCE 09/30/17 07:16 09/30/17 07:17 DC Dextrose (Dextrose 50%-Water Syringe) 12.5 gm PRN Q15MIN PRN 09/30/17 01:30 Docusate Sodium (Colace) 100 mg DAILY 10/03/17 09:00 10/03/17 10:40 100 MG Enoxaparin Sodium (Lovenox 40mg Syringe) 40 mg Q24H 10/01/17 09:00 10/03/17 09:19 DC 10/02/17 08:29 40 MG Famotidine (Pepcid Vial) 20 mg BID 09/30/17 11:00 10/01/17 09:39 DC 10/01/17 08:40 20 MG Fentanyl Citrate (Fentanyl 2ml Vial) 50 mcg PRN Q2HR PRN 10/02/17 16:30 Fentanyl Citrate (Fentanyl 5ml Vial) 250 mcg STK-MED ONCE 09/30/17 07:14 09/30/17 07:15 DC Glycopyrrolate (Robinul) 1 mg STK-MED ONCE 09/30/17 08:54 09/30/17 08:55 DC Hydromorphone HCl (Dilaudid) 0.5 mg PRN Q10MIN PRN 09/30/17 07:00 09/30/17 19:00 DC Insulin Aspart (NovoLOG VIAL) 6 unit 1X PACU ONCE 09/30/17 10:00 09/30/17 10:01 DC 09/30/17 09:59 6 UNIT Insulin Human Lispro (HumaLOG) 0-7 UNITS TIDWMEALS 09/30/17 08:00 10/04/17 09:12 4 UNITS Lactobacillus Rhamnosus (Culturelle) 1 cap BID 10/01/17 21:00 10/04/17 09:02 1 CAP Lidocaine (Lidoderm) 1 patch DAILY 10/03/17 11:00 10/04/17 09:01 1 PATCH Lidocaine HCl (Xylocaine-Mpf 1% 2ml Vial) 2 ml 1X PRN PRN 09/30/17 07:00 09/30/17 19:00 DC Magnesium Hydroxide (Milk Of Magnesia) 2,400 mg PRN DAILY PRN 10/02/17 16:30 Miscellaneous (Lidoderm Patch Removal) 1 ea QHS 10/03/17 21:00 10/03/17 21:52 1 EA Morphine Sulfate 30 ml @ 0 mls/hr CONT PRN PRN 09/30/17 10:00 10/03/17 09:19 DC 8/25/18 07:08 0 MLS/HR Morphine Sulfate (Morphine Sulfate) 1 mg PRN Q10MIN PRN 09/30/17 07:00 09/30/17 19:00 DC Naloxone HCl (Narcan) 0.4 mg PRN Q2MIN PRN 09/30/17 09:45 10/03/17 09:19 DC Neostigmine Methylsulfate (Neostigmine Methylsulfate) 5 mg STK-MED ONCE 09/30/17 08:53 09/30/17 08:54 DC Ondansetron HCl (Zofran) 4 mg PRN Q6HRS PRN 09/30/17 09:45 10/04/17 09:00 4 MG Oxycodone/ Acetaminophen (Percocet 10/325) 1 tab PRN Q4HRS PRN 10/02/17 16:30 10/04/17 09:03 1 TAB Pantoprazole Sodium (PROTONIX VIAL for IV PUSH) 40 mg DAILYAC 09/30/17 07:30 10/03/17 09:19 DC 10/02/17 08:28 40 MG Phenylephrine HCl (PHENYLEPHRINE in 0.9% NACL PF) 1 mg STK-MED ONCE 09/30/17 07:15 09/30/17 07:16 DC Piperacillin Sod/ Tazobactam Sod 3.375 gm/Sodium Chloride 50 ml @ 100 mls/hr Q6HRS 09/30/17 18:00 10/02/17 16:36 DC 10/02/17 13:04 100 MLS/HR Polyethylene Glycol (miraLAX PACKET) 17 gm DAILY 10/03/17 09:00 Potassium Chloride/Sodium Chloride 1,000 ml @ 80 mls/hr [id number] 10/01/17 09:30 10/03/17 10:55 DC 10/03/17 02:28 80 MLS/HR Potassium Chloride (Klor-Con) 40 meq DAILYWBKFT 10/02/17 08:00 10/04/17 09:03 40 MEQ Prochlorperazine Edisylate (Compazine) 5 mg PACU PRN PRN 09/30/17 07:00 09/30/17 19:00 DC Propofol 20 ml @ As Directed STK-MED ONCE 09/30/17 07:16 09/30/17 07:17 DC Ringer's Solution 1,000 ml @ 100 mls/hr Q10H 09/30/17 11:00 10/01/17 08:41 DC Rocuronium [place] (Zemuron) 50 mg STK-MED ONCE 09/30/17 07:44 09/30/17 07:45 DC Sodium Chloride 1,000 ml @ 25 mls/hr Q24H 09/30/17 10:00 10/01/17 04:09 25 MLS/HR Sodium Chloride (Normal Saline Flush) 3 ml QSHIFT PRN 09/30/17 09:45 Labs: Lab Laboratory Tests Test 10/04/17 08:38 Glucose (Fingerstick) 219 mg/dL (70-99) Micro URINE CULTURE Final Final report URINE CULTURE RES 1 Final Escherichia coli Greater than 100,000 colony forming units per mL Cefazolin <=4 ug/mL Cefazolin with an MARTIN <=16 predicts susceptibility to the oral agents cefaclor, cefdinir, cefpodoxime, cefprozil, cefuroxime, cephalexin, and loracarbef when used for therapy of uncomplicated urinary tract infections due to E. coli, Klebsiella pneumoniae, and Proteus mirabilis. ANTIMICROBIAL SUSCEPTIBILITY Final Comment S = Susceptible; I = Intermediate; R = Resistant P = Positive; N = Negative MICS are expressed in micrograms per mL Antibiotic RSLT#1 RSLT#2 RSLT#3 RSLT#4 Amoxicillin/Clavulanic Acid S =4 Ampicillin S =8 Cefepime S<=0.12 Ceftriaxone S<=0.25 Cefuroxime I =8 Ciprofloxacin S<=0.25 Ertapenem S<=0.12 Gentamicin S<=1 Imipenem S<=0.25 Levofloxacin S<=0.12 Meropenem S<=0.25 Nitrofurantoin S<=16 Piperacillin/Tazobactam S<=4 Tetracycline S<=1 Tobramycin S<=1 Trimethoprim/Sulfa S<=20 Performed at: DA - [facility] [address], [place], [place] [id number] Objective: Assessment: Perforated ulcer s/p surgery Leukocytosis Low grade fever Cirrhosis E coli UTI Plan: Plan of Care po augmentin supportive care SUSANNA ZAPATA MD Oct 04, 2017 11:07
--- NOTE | 2017-10-04 14:30 | PDOC ---
SURGICAL PROGRESS NOTE Subjective down for imaging will FU Vital Signs Vital Signs Date Time Temp Pulse Resp B/P (MAP) Pulse Ox O2 Delivery O2 Flow Rate FiO2 10/04/17 13:13 96 Room Air 10/04/17 11:00 98.2 73 20 115/65 (82) 98.2 10/04/17 03:00 2.0 I&O Intake and Output 10/04/17 07:00 Output Total 0 ml Balance 0 ml Output Urine Total 0 ml # Voids 5 Labs Laboratory Tests Test 10/02/17 16:19 10/02/17 20:34 10/04/17 08:38 10/04/17 11:54 Glucose (Fingerstick) 172 mg/dL (70-99) 145 mg/dL (70-99) 219 mg/dL (70-99) 169 mg/dL (70-99) Laboratory Tests Test 10/04/17 08:38 10/04/17 11:54 Glucose (Fingerstick) 219 mg/dL (70-99) 169 mg/dL (70-99) Problem List Problems Medical Problems: (1) Hyperglycemia Status: Acute (2) Pneumoperitoneum Status: Acute CYRUS KHOURY [employer] WORKER Oct 04, 2017 14:30
--- NOTE | 2017-10-04 14:36 | RAD ---
MRI Thoracic Spine without contrast History: Chronic upper back pain Technique: Multiplanar, multi sequential noncontrast MR imaging was performed of the thoracic spine. Contrast: None Comparison: None Findings: Thoracic vertebral body stature and AP alignment are adequate. There is probable old mild superior endplate concavity of C7 as seen at the superior aspect of exam. Thoracic cord caliber is within normal limits without convincing focal signal abnormality. There is no significant thoracic spinal stenosis at any level. There is a very shallow protrusion in the right lateral recess at T3-4. There is also shallow protrusion in the right lateral recess at T7-T8. Thoracic neural foramina are not significantly narrowed. Intervertebral disc spaces are relatively preserved, mild disc desiccation mid to inferior thoracic levels. There is no significant marrow edema. As seen at the superior aspect of exam and on the localizer, there is cervical degenerative disc disease and spondylosis, likely bulges at C4-5 to C6-7 at which there is probable mild spinal stenosis. Also as seen on the localizer, there is extra-axial CSF collection in the anterior right middle cranial fossa more likely due to arachnoid cyst. Impression: 1. There is no significant thoracic spinal stenosis or neural foramina compromise. There are shallow protrusions in the right lateral recesses T3-T4 and T7-8. 2. There is cervical degenerative disc disease and spondylosis, also likely mild spinal stenosis C4-5 to C6-7. 3. Not fully included, there is extra-axial CSF collection of the anterior aspect of the visualized anterior aspect of the right middle cranial fossa more likely due to arachnoid cyst. Electronically signed by: Osmany Polanco MD (10/04/2017 2:33 PM) [id number]
[2017-10-04 15:00] VITALS: BP 143/82
--- NOTE | 2017-10-04 15:27 | RAD ---
MRI Lumbar Spine without contrast History: Chronic low back pain Technique: Multiplanar, multi sequential noncontrast MR imaging was performed of the lumbar spine. Contrast: None Comparison: None Findings: There is motion degradation. Patient could not tolerate additional imaging for repeat sequences. Lumbar vertebral body stature is adequate. There is minimal grade 1 anterior spondylolisthesis L4-5. There is mild to moderate degenerative disc disease at L4-5 and to lesser degree at L5-S1, posterior annular tears at these levels. There is also mild degenerative disc disease L1-L2. Conus terminates at L1. There is very mild lumbar levoscoliosis. There is T2 hyperintense lesion of the visualized right kidney about 1.7 cm. L1-L2: Spinal canal and neural foramina are adequate. There is negligible disc osteophyte complex and posterior bulge. L2-L3: Neural foramina and spinal canal are adequate. L3-L4: There is mild buckling of the ligamentum flavum and facet hypertrophic change. Neural foramina and spinal canal are adequate. L4-L5: There is mild buckling of the ligamentum flavum and nyci-db-tstysiub facet hypertrophic change. There is mild narrowing of the right neural foramen, left neural foramen adequate. There is mild to moderate narrowing of the far lateral recesses bilaterally. L5-S1: There is shallow posterior protrusion centrally, no significant neural impingement. Spinal canal and the neural foramina are not significantly narrowed. Impression: 1. Exam is degraded by motion. There is ukou-ke-vjrqydwh narrowing of the far lateral recesses bilaterally at L4-5. There is bism-ls-sbdjuuex degenerative disc disease at L4-5 and to a somewhat lesser degree at L5-S1. There is minimal grade 1 anterior spondylolisthesis L4-5 at which there is facet degenerative change. There is mild narrowing of the right L4-5 neural foramen. Electronically signed by: Osmany Polanco MD (10/04/2017 3:24 PM) [id number]
[2017-10-04 19:00] VITALS: BP 138/78
--- NOTE | 2017-10-04 19:09 | CONS ---
DATE OF CONSULTATION: 10/04/2017 ATTENDING PHYSICIAN: Dr. Lai. The patient was seen at the request of Dr. Woodward for evaluation about her back pain. HISTORY OF PRESENT ILLNESS: This is a 47-year-old female admitted on 09/30/2017 with upper abdominal pain for about 2-3 days, has been vomiting with diarrhea. The patient apparently had been taking nonsteroidal anti-inflammatory medication with back pain started about 2 months ago without any specific injury. She admits occasional radiation of pain to the extremities. She admits occasional urinary dribbling. The patient had bladder tuck done in the past, but still admits occasional incontinence. PAST MEDICAL HISTORY: Includes cholelithiasis, anxiety, diabetes mellitus, status post cholecystectomy. Since admission, she was found with perforated gastric ulcer and she underwent laparoscopic repair. ALLERGIES: THE PATIENT IS KNOWN ALLERGIC TO SULFA AND LAKSHMI. PHYSICAL EXAMINATION: Today revealed a middle-aged female. She is in no acute distress. She is alert, oriented to time, place, person and circumstance and follows commands appropriately. No significant limitation of lumbar spine range of motion without any paraspinal muscle spasm and no tenderness to palpation over lumbar spine or adjoining paraspinal muscles or sacroiliac joint area and straight leg raising test is negative bilaterally. She had 5/5 grade muscle strength in her lower extremities and deep tendon reflexes are 1 to 2+ and symmetrical with absent ankle jerks bilaterally. She had equal perception of touch and pinprick sensation bilaterally. She had pain free range of motion on both hip and knee joints. She is independent with her mobility. I have reviewed her CT scan, which revealed mild degree of spondylolisthesis of L4 on L5. ASSESSMENT: Chronic low back pain with lumbar radiculitis. No clinical evidence of ongoing lumbar radiculopathy, most preferably from degenerative joint disease of lumbar vertebrae and recent perforated gastric ulcer treated most probably from use of nonsteroidal anti-inflammatory medication. The patient with known cholelithiasis, anxiety, diabetes mellitus with peripheral neuropathy. RECOMMENDATIONS: I have instructed in a home program of physical modalities and stretching exercises and reviewed with her proper body mechanics and advised her to avoid any activity that irritates her back. She admits most of the pain is when she is not on her feet on her holidays, so I do not see any need for any back support at present time. Dr. Woodward, appreciate asking me to participate in the care of this interesting patient. I will be glad to follow her with you as needed for rehabilitation. She can be discharged to home when medically stable. STARR KOHLER MD DR: ADRIAN/elvia JOB#: [id number] / [id number]
[2017-10-04] MEDS: PATCH REMOVAL. MC SCH (21:00)
[2017-10-04 23:00] VITALS: BP 133/74
[2017-10-05 03:00] VITALS: BP 130/74
[2017-10-05] MEDS: oxyCODONE/APAP 10/325 1 TAB TABLET PO PRN (04:34)
[2017-10-05] MEDS: ONDANSETRON PF 4 MG/2 ML VIAL. IV PRN (04:34)
[2017-10-05 07:00] VITALS: BP 121/75
[2017-10-05] MEDS: AMOXICILLIN/K CLAV 875/125MG TABLET. PO SCH (08:53)
[2017-10-05] MEDS: POTASSIUM CHLORIDE 20 MEQ TABLET.ER. PO SCH (08:53)
[2017-10-05] MEDS: POLYETHYLENE GLYCOL 3350 17 GM PACKET. PO SCH (08:54)
[2017-10-05] MEDS: LIDOCAINE (700MG/PATCH) PATCH. TD SCH (08:54)
[2017-10-05] MEDS: DOCUSATE SODIUM 100 MG CAPSULE. PO SCH (08:54)
[2017-10-05] MEDS: LACTOBACILLUS RHAMNOSUS GG 1 CAPSULE. PO SCH (08:54)
[2017-10-05] MEDS: INSULIN LISPRO 300 UNITS/3 ML INSULN.PEN. SQ SCH (09:04)
[2017-10-05] MEDS ORDERED: PANT20TA2 PO (09:15)
[2017-10-05] MEDS ORDERED: Pantoprazole PO (09:25)
--- NOTE | 2017-10-05 09:27 | PDOC ---
SURGICAL PROGRESS NOTE Subjective tolerating diet ambulating pain managed Vital Signs Vital Signs Date Time Temp Pulse Resp B/P (MAP) Pulse Ox O2 Delivery O2 Flow Rate FiO2 10/05/17 07:00 97.5 73 18 121/75 (90) 99 Room Air 97.5 I&O Intake and Output 10/05/17 07:00 Intake Total 1850 ml Balance 1850 ml Intake Oral 1850 ml # Voids 2 General: Alert, Oriented X3, Cooperative, No acute distress Abdomen: Soft, Other (ND, incision c/d/i, no erythema ) Labs Laboratory Tests Test 10/04/17 08:38 10/04/17 11:54 10/04/17 16:34 10/04/17 20:05 Glucose (Fingerstick) 219 mg/dL (70-99) 169 mg/dL (70-99) 193 mg/dL (70-99) 240 mg/dL (70-99) Test 10/05/17 07:41 Glucose (Fingerstick) 199 mg/dL (70-99) Laboratory Tests Test 10/04/17 11:54 10/04/17 16:34 10/04/17 20:05 10/05/17 07:41 Glucose (Fingerstick) 169 mg/dL (70-99) 193 mg/dL (70-99) 240 mg/dL (70-99) 199 mg/dL (70-99) Problem List Problems Medical Problems: (1) Hyperglycemia Status: Acute (2) Pneumoperitoneum Status: Acute Assessment/Plan ok to dc home PPI, will need to FU with GI for EGD in future CYRUS KHOURY APRN Oct 05, 2017 09:27
--- NOTE | 2017-10-05 09:35 | PDOC ---
PROGRESS NOTES Subjective Subjective No new complaints. Objective Objective Vital Signs Date Time Temp Pulse Resp B/P (MAP) Pulse Ox O2 Delivery O2 Flow Rate FiO2 10/05/17 07:00 97.5 73 18 121/75 (90) 99 Room Air 97.5 10/04/17 03:00 2.0 Intake and Output 10/05/17 07:00 Intake Total 1850 ml Balance 1850 ml Intake Oral 1850 ml # Voids 2 Physical Exam Physical Exam She is alert,comfortable and feels good after shower this AM. She remains independent with her mobility and self care. Assessment Assessment Problems Medical Problems: (1) Hyperglycemia Status: Acute (2) Pneumoperitoneum Status: Acute Plan Plan of Care I have again reviewed with her home exercises to take car of her low back. Comment Review of Relevant I have reviewed the following items jana (where applicable) has been applied. Labs Laboratory Tests Test 10/04/17 08:38 10/04/17 11:54 10/04/17 16:34 10/04/17 20:05 Glucose (Fingerstick) 219 mg/dL (70-99) 169 mg/dL (70-99) 193 mg/dL (70-99) 240 mg/dL (70-99) Test 10/05/17 07:41 Glucose (Fingerstick) 199 mg/dL (70-99) Laboratory Tests Test 10/04/17 11:54 10/04/17 16:34 10/04/17 20:05 10/05/17 07:41 Glucose (Fingerstick) 169 mg/dL (70-99) 193 mg/dL (70-99) 240 mg/dL (70-99) 199 mg/dL (70-99) Microbiology 09/29/17 Urine Culture - Final, Complete 09/29/17 Urine Culture Result 1 (MARTIN) - Final, Complete 09/29/17 Antimicrobic Susceptibility - Final, Complete Medications Current Medications Fentanyl Citrate (Fentanyl 2ml Vial) 50 mcg 1X ONCE IV Last administered on at 23:00; Start 09/29/17 at 23:00; Stop 09/29/17 at 23:01; Status DC Sodium Chloride 1,000 ml @ 1,000 mls/hr 1X ONCE IV Last administered on at 23:00; Start 09/29/17 at 23:00; Stop 09/29/17 at 23:59; Status DC Ondansetron HCl (Zofran) 4 mg 1X ONCE IV Last administered on 09/29/17at 23:00 ; Start 09/29/17 at 23:00; Stop 09/29/17 at 23:01; Status DC Piperacillin Sod/ Tazobactam Sod 3.375 gm/Sodium Chloride 50 ml @ 100 mls/hr 1X ONCE IV Last administered on 09/30/17at 00:15; Start 09/30/17 at 00:15; Stop 09/30/17 at 00:44; Status DC Morphine Sulfate (Morphine Sulfate) 2 mg PRN Q2HR PRN IV PAIN Last administered on 09/30/17at 05:19; Start 09/30/17 at 01:15; Stop 09/30/17 at 09:49 ; Status DC Sodium Chloride 1,000 ml @ 150 mls/hr Q6H40M IV Last administered on at 20:56; Start 09/30/17 at 01:15; Stop 10/01/17 at 01:14; Status DC Insulin Human Lispro (HumaLOG) 0-7 UNITS TIDWMEALS SQ Last administered on 10/05at 09:04; Start 09/30/17 at 08:00 Dextrose (Dextrose 50%-Water Syringe) 12.5 gm PRN Q15MIN PRN IV SEE COMMENTS; Start 09/30/17 at 01:30 Pantoprazole Sodium (PROTONIX VIAL for IV PUSH) 40 mg DAILYAC IVP Last administered on 10/02/17at 08:28; Start 09/30/17 at 07:30; Stop 10/03/17 at 09:19 ; Status DC Fentanyl Citrate (Fentanyl 2ml Vial) 50 mcg 1X ONCE IV Last administered on at 06:34; Start 09/30/17 at 06:30; Stop 09/30/17 at 06:31; Status DC Ondansetron HCl (Zofran) 4 mg PRN Q6HRS PRN IV NAUSEA/VOMITING; Start 09/30/17 at 07:00; Stop 09/30/17 at 19:00; Status DC Fentanyl Citrate (Fentanyl 2ml Vial) 25 mcg PRN Q5MIN PRN IV MILD PAIN; Start 09/30/17 at 07:00; Stop 09/30/17 at 19:00; Status DC Fentanyl Citrate (Fentanyl 2ml Vial) 50 mcg PRN Q5MIN PRN IV MODERATE TO SEVERE PAIN Last administered on 09/30/17at 10:17; Start 09/30/17 at 07:00; Stop 09/30/17 at 19:00; Status DC Morphine Sulfate (Morphine Sulfate) 1 mg PRN Q10MIN PRN IV SEVERE PAIN; Start 09/30/17 at 07:00; Stop 09/30/17 at 19:00; Status DC Ringer's Solution 1,000 ml @ 30 mls/hr Q24H IV Last administered on 09/30/17at 07:15; Start 09/30/17 at 06:55; Stop 09/30/17 at 18:54; Status DC Lidocaine HCl (Xylocaine-Mpf 1% 2ml Vial) 2 ml 1X PRN PRN ID IV START; Start at 07:00; Stop 09/30/17 at 19:00; Status DC Hydromorphone HCl (Dilaudid) 0.5 mg PRN Q10MIN PRN IV SEV PAIN, Second choice; Start 09/30/17 at 07:00; Stop 09/30/17 at 19:00; Status DC Prochlorperazine Edisylate (Compazine) 5 mg PACU PRN PRN IV NAUSEA, MRX1; Start 09/30/17 at 07:00; Stop 09/30/17 at 19:00; Status DC Bupivacaine HCl/ Epinephrine Bitart (Marcaine-Epi 0.5%-1:[id number]) 50 ml STK-MED ONCE .ROUTE ; Start 09/30/17 at 06:02; Stop 09/30/17 at 07:03; Status DC Bacitracin (Bacitracin) 50,000 unit STK-MED ONCE IRR ; Start 09/30/17 at 06:03; Stop 09/30/17 at 07:03; Status DC Cefazolin Sodium/ Dextrose 50 ml @ As Directed STK-MED ONCE IV ; Start 09/30/17 at 07:10; Stop 09/30/17 at 07:11; Status DC Fentanyl Citrate (Fentanyl 5ml Vial) 250 mcg STK-MED ONCE .ROUTE ; Start at 07:14; Stop 09/30/17 at 07:15; Status DC Phenylephrine HCl (PHENYLEPHRINE in 0.9% NACL PF) 1 mg STK-MED ONCE IV ; Start 09/30/17 at 07:15; Stop 09/30/17 at 07:16; Status DC Propofol 20 ml @ As Directed STK-MED ONCE IV ; Start 09/30/17 at 07:16; Stop at 07:17; Status DC Dexamethasone Sodium Phosphate (Decadron) 20 mg STK-MED ONCE .ROUTE ; Start at 07:16; Stop 09/30/17 at 07:17; Status DC Ondansetron HCl (Zofran) 4 mg STK-MED ONCE .ROUTE ; Start 09/30/17 at 07:16; Stop 09/30/17 at 07:17; Status DC Insulin Aspart (NovoLOG VIAL) 4 unit 1X ONCE SQ Last administered on at 07:26; Start 09/30/17 at 07:30; Stop 09/30/17 at 07:31; Status DC Rocuronium [place] (Zemuron) 50 mg STK-MED ONCE .ROUTE ; Start 09/30/17 at 07:44 ; Stop 09/30/17 at 07:45; Status DC Cefazolin Sodium/ Dextrose 50 ml @ 100 mls/hr 1X PREOP PRN IV Pre Op dose; Start 09/30/17 at 08:00; Stop 09/30/17 at 13:00; Status DC Bupivacaine HCl/ Epinephrine Bitart (Marcaine-Epi 0.5%-1:[id number]) 50 ml STK-MED ONCE IJ Last administered on 09/30/17at 08:05; Start 09/30/17 at 08:05; Stop at 09:01; Status DC Neostigmine Methylsulfate (Neostigmine Methylsulfate) 5 mg STK-MED ONCE .ROUTE ; Start 09/30/17 at 08:53; Stop 09/30/17 at 08:54; Status DC Glycopyrrolate (Robinul) 1 mg STK-MED ONCE .ROUTE ; Start 09/30/17 at 08:54; Stop 09/30/17 at 08:55; Status DC Cefoxitin Sodium 1 gm/Dextrose 50 ml @ 100 mls/hr Q6H IV ; Start 09/30/17 at 09 :45; Stop 09/30/17 at 22:14; Status UNV Famotidine (Pepcid Vial) 20 mg BID IVP Last administered on 10/01/17at 08:40; Start 09/30/17 at 11:00; Stop 10/01/17 at 09:39; Status DC Enoxaparin Sodium (Lovenox 40mg Syringe) 40 mg Q24H SQ Last administered on at 08:29; Start 10/01/17 at 09:00; Stop 10/03/17 at 09:19; Status DC Sodium Chloride (Normal Saline Flush) 3 ml QSHIFT PRN IV AFTER MEDS AND BLOOD DRAWS; Start 09/30/17 at 09:45 Ringer's Solution 1,000 ml @ 100 mls/hr Q10H IV ; Start 09/30/17 at 11:00; Stop 10/01/17 at 08:41; Status DC Naloxone HCl (Narcan) 0.4 mg PRN Q2MIN PRN IV SEE INSTRUCTIONS; Start 09/30/17 at 09:45; Stop 10/03/17 at 09:19; Status DC Sodium Chloride 1,000 ml @ 25 mls/hr Q24H IV Last administered on 10/01/17at 04 :09; Start 09/30/17 at 10:00 Morphine Sulfate 30 ml @ 0 mls/hr CONT PRN PRN IV PER PROTOCOL Last administered on 10/02/17at 07:08; Start 09/30/17 at 10:00; Stop 10/03/17 at 09:19 ; Status DC Ondansetron HCl (Zofran) 4 mg PRN Q6HRS PRN IV NAUESA, 1ST CHOICE Last administered on 10/05/17at 04:34; Start 09/30/17 at 09:45 Cefoxitin Sodium (Mefoxin) 1 gm Q6H IVP Last administered on 10/01/17at 04:11; Start 09/30/17 at 14:00; Stop 10/01/17 at 02:01; Status DC Insulin Aspart (NovoLOG VIAL) 6 unit 1X PACU ONCE SQ Last administered on 09/30at 09:59; Start 09/30/17 at 10:00; Stop 09/30/17 at 10:01; Status DC Fentanyl Citrate (Fentanyl 2ml Vial) 100 mcg STK-MED ONCE .ROUTE ; Start at 09:51; Stop 09/30/17 at 09:52; Status DC Cefazolin Sodium/ Dextrose (Ancef 2gm Premix) 2 gm STK-MED ONCE IV ; Start 09/30 at 08:00; Stop 09/30/17 at 13:21; Status DC Piperacillin Sod/ Tazobactam Sod 3.375 gm/Sodium Chloride 50 ml @ 100 mls/hr Q6HRS IV Last administered on 10/02/17at 13:04; Start 09/30/17 at 18:00; Stop at 16:36; Status DC Potassium Chloride/Sodium Chloride 1,000 ml @ 80 mls/hr [id number] IV Last administered on 10/03/17at 02:28; Start 10/01/17 at 09:30; Stop 10/03/17 at 10:55 ; Status DC Potassium Chloride (Klor-Con) 40 meq 1X ONCE PO Last administered on at 09:30; Start 10/01/17 at 09:30; Stop 10/01/17 at 09:31; Status DC Potassium Chloride (Klor-Con) 40 meq DAILYWBKFT PO Last administered on at 08:53; Start 10/02/17 at 08:00 Lactobacillus Rhamnosus (Culturelle) 1 cap BID PO Last administered on at 08:54; Start 10/01/17 at 21:00 Amoxicillin/ Clavulanate Potassium (Augmentin 875/ 125mg) 1 tab BID PO Last administered on 10/05/17at 08:53; Start 10/02/17 at 21:00 Polyethylene Glycol (miraLAX PACKET) 17 gm DAILY PO ; Start 10/03/17 at 09:00 Magnesium Hydroxide (Milk Of Magnesia) 2,400 mg 1X ONCE PO Last administered on 10/02/17at 18:06; Start 10/02/17 at 16:30; Stop 10/02/17 at 16:40; Status DC Magnesium Hydroxide (Milk Of Magnesia) 2,400 mg PRN DAILY PRN PO CONSTIPATION; Start 10/02/17 at 16:30 Fentanyl Citrate (Fentanyl 2ml Vial) 50 mcg PRN Q2HR PRN IV PAIN; Start at 16:30 Oxycodone/ Acetaminophen (Percocet 10/325) 1 tab PRN Q4HRS PRN PO PAIN Last administered on 10/05/17at 04:34; Start 10/02/17 at 16:30 Docusate Sodium (Colace) 100 mg DAILY PO Last administered on 10/03/17at 10:40; Start 10/03/17 at 09:00 Lidocaine (Lidoderm) 1 patch DAILY TD Last administered on 10/04/17at 09:01; Start 10/03/17 at 11:00 Miscellaneous (Lidoderm Patch Removal) 1 ea QHS MC Last administered on at 21:00; Start 10/03/17 at 21:00 Pantoprazole Sodium (Protonix) 40 mg DAILYAC PO ; Start 10/05/17 at 10:00 Active Scripts Active [Pantoprazole] 40 MG Tablet.dr 40 Mg PO DAILYAC Lidocaine 1 Each Adh..patch 1 Patch TD DAILY 14 Days Oxycodone-Acetaminophen 10-325 (Oxycodone Hcl/Acetaminophen) 1 Each Tablet 1 Tab PO PRN Q4HRS PRN 15 Days Amox Tr-K Clv 875-125 Mg Tab (Amoxicillin/Potassium Clav) 1 Each Tablet 1 Tab PO BID 7 Days Reported [novolog] TIDAC [lantus] HS [bipolar medicine ?] Vitals/I & O Vital Sign - Last 24 Hours 10/04/17 10/04/17 10/04/17 10/04/17 11:00 13:13 14:12 15:00 Temp 98.2 98.0 98.2 98.0 Pulse 73 83 Resp 20 20 B/P (MAP) 115/65 (82) 143/82 (102) Pulse Ox 96 96 98 98 O2 Delivery Room Air Room Air Room Air 10/04/17 10/04/17 10/04/17 10/04/17 17:41 18:41 19:00 23:00 Temp 98.2 98.2 98.2 98.2 Pulse 76 74 Resp 16 16 17 16 B/P (MAP) 138/78 (98) 133/74 (93) Pulse Ox 100 99 O2 Delivery Room Air Room Air Room Air Room Air 10/05/17 10/05/17 10/05/17 03:00 04:34 07:00 Temp 98.1 97.5 98.1 97.5 Pulse 71 73 Resp 16 18 B/P (MAP) 130/74 (92) 121/75 (90) Pulse Ox 97 99 O2 Delivery Room Air Room Air Intake and Output 10/04/17 10/04/17 10/05/17 15:00 23:00 07:00 Intake Total 550 ml 1300 ml Balance 550 ml 1300 ml STARR KOHLER MD Oct 05, 2017 09:35
[2017-10-05] MEDS: IV NORMAL SALINE 1000ML BAG 1,000 ML IV SCH (10:00)
[2017-10-05] MEDS ORDERED: PANTOPRAZOLE 40 MG TABLET.DR. PO SCH (10:00)
--- NOTE | 2017-10-05 10:01 | PDOC3 ---
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 Final Diagnosis Problems Medical Problems: (1) Hyperglycemia Status: Acute (2) Pneumoperitoneum Status: Acute Brief Hospital Course Allergies Allergies Coded Allergies Type Severity Reaction Last Updated Verified Sulfa (Sulfonamide Antibiotics) Allergy Intermediate 09/30/17 Yes orquidea Allergy Intermediate 09/30/17 Yes Vital Signs Vital Signs Date Time Temp Pulse Resp B/P (MAP) Pulse Ox O2 Delivery O2 Flow Rate FiO2 10/05/17 07:00 97.5 73 18 121/75 (90) 99 Room Air 97.5 Lab Results Laboratory Tests Test 10/04/17 08:38 10/04/17 11:54 10/04/17 16:34 10/04/17 20:05 Glucose (Fingerstick) 219 mg/dL (70-99) 169 mg/dL (70-99) 193 mg/dL (70-99) 240 mg/dL (70-99) Test 10/05/17 07:41 Glucose (Fingerstick) 199 mg/dL (70-99) Laboratory Tests Test 10/04/17 11:54 10/04/17 16:34 10/04/17 20:05 10/05/17 07:41 Glucose (Fingerstick) 169 mg/dL (70-99) 193 mg/dL (70-99) 240 mg/dL (70-99) 199 mg/dL (70-99) Brief Hospital Course Ms. 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 Found to have pneumoperitoneum. She does take NSAIDs very regularly because of chronic back pain and neck pain. Pneumoperitoneum was fixed by general surgery, with indwelling drain accidentally fell off postop days which is okay to be off. Doing well in that regard. I did order MRIs of the lumbar spine because of continued back pain in house. Show DJD of the cervical spine and some narrowing spinal canal but nothing that needs surgical intervention. We have Rx'd Percocet , Lidoderm patch. She needed some Zofran pills. Work excuse slip not to lift heavy objects for at least 2 weeks more than 20 pounds on chart. Also she knows not to take anymore NSAIDs. Cleared from GS and physiatry to go home Meds in chart Discharge time 31 minutes with a 60% discharge education counseling and discharge coordination. Consults performed physiatry, [facility] Pages performed repair of her pneumoperitoneum Discharge Information Condition at Discharge: Improved, Stable Follow Up: Weeks (2 weeks ) Disposition/Orders: D/C to Home Scheduled Amoxicillin/Potassium Clav (Amox Tr-K Clv 875-125 Mg Tab) 1 Each Tablet, 1 TAB PO BID for 7 Days, #14 Prescribed by: LORA BENTLEY on 10/04/17 0835 Lidocaine (Lidocaine) 1 Each Adh..patch, 1 PATCH TD DAILY for 14 Days, #14 Prescribed by: LORA BENTLEY on 10/04/17 0835 [Pantoprazole] 40 MG TABLET.DR, 40 MG PO DAILYAC, #30 Ref 0 Prescribed by: Alana Bell on 10/05/17 0925 [lantus] , HS, (Reported) Entered as Reported by: JOCELYN BERGMAN on 09/30/17210 Last Action: New Order on 09/30/17210 by JOCELYN BERGMAN [novolog] , TIDAC, (Reported) Entered as Reported by: JOCELYN BERGMAN on 09/30/17210 Last Action: New Order on 09/30/17210 by JOCELYN BERGMAN Scheduled PRN Oxycodone Hcl/Acetaminophen (Oxycodone-Acetaminophen 10-325) 1 Each Tablet, 1 TAB PO PRN Q4HRS PRN for PAIN for 15 Days Prescribed by: LORA BENTLEY on 10/04/17 0835 Miscellaneous Medications [bipolar medicine ?] , (Reported) Entered as Reported by: JOCELYN BERGMAN on 09/30/17210 Last Action: New Order on 09/30/17210 by LORA KIMBALL MD Oct 05, 2017 10:01
--- NOTE | 2017-10-05 10:07 | PDOC ---
Infectious Disease Note Subjective: Subjective feeling good no n/v/d ready for dc home ROS: ROS Negative except for above. Vital Signs: Vital Signs Vital Signs Date Time Temp Pulse Resp B/P (MAP) Pulse Ox O2 Delivery O2 Flow Rate FiO2 10/05/17 07:00 97.5 73 18 121/75 (90) 99 Room Air 97.5 Physical Exam: PHYSICAL EXAM GENERAL: Propped up in bed with ice bag lying on her abdomen HEENT: Oral cavity dry NECK: Supple LUNGS: Clear HEART: S1, S2 ABDOMEN: Obese, BS present, soft, tender. incision approx, Riddhi intact . No area redness. EXTREMITIES: No edema or cyanosis. SKIN: warm without rash NEUROLOGIC: Alert and oriented PIV o Medications: Inpatient Meds: Current Medications Medications (Trade) Dose Ordered Sig/Eamon Start Time Stop Time Status Last Admin Dose Admin Amoxicillin/ Clavulanate Potassium (Augmentin 875/ 125mg) 1 tab BID 10/02/17 21:00 10/05/17 08:53 1 TAB Bacitracin (Bacitracin) 50,000 unit STK-MED ONCE 09/30/17 06:03 09/30/17 07:03 DC Bupivacaine HCl/ Epinephrine Bitart (Marcaine-Epi 0.5%-1:236511) 50 ml STK-MED ONCE 09/30/17 08:05 09/30/17 09:01 DC 09/30/17 08:05 4 ML Cefazolin Sodium/ Dextrose (Ancef 2gm Premix) 2 gm STK-MED ONCE 09/30/17 08:00 09/30/17 13:21 DC Cefoxitin Sodium (Mefoxin) 1 gm Q6H 09/30/17 14:00 10/01/17 02:01 DC 10/01/17 04:11 1 GM Cefoxitin Sodium 1 gm/Dextrose 50 ml @ 100 mls/hr Q6H 09/30/17 09:45 09/30/17 22:14 UNV Dexamethasone Sodium Phosphate (Decadron) 20 mg STK-MED ONCE 09/30/17 07:16 09/30/17 07:17 DC Dextrose (Dextrose 50%-Water Syringe) 12.5 gm PRN Q15MIN PRN 09/30/17 01:30 Docusate Sodium (Colace) 100 mg DAILY 10/03/17 09:00 10/03/17 10:40 100 MG Enoxaparin Sodium (Lovenox 40mg Syringe) 40 mg Q24H 10/01/17 09:00 10/03/17 09:19 DC 10/02/17 08:29 40 MG Famotidine (Pepcid Vial) 20 mg BID 09/30/17 11:00 10/01/17 09:39 DC 10/01/17 08:40 20 MG Fentanyl Citrate (Fentanyl 2ml Vial) 50 mcg PRN Q2HR PRN 10/02/17 16:30 Fentanyl Citrate (Fentanyl 5ml Vial) 250 mcg STK-MED ONCE 09/30/17 07:14 09/30/17 07:15 DC Glycopyrrolate (Robinul) 1 mg STK-MED ONCE 09/30/17 08:54 09/30/17 08:55 DC Hydromorphone HCl (Dilaudid) 0.5 mg PRN Q10MIN PRN 09/30/17 07:00 09/30/17 19:00 DC Insulin Aspart (NovoLOG VIAL) 6 unit 1X PACU ONCE 09/30/17 10:00 09/30/17 10:01 DC 09/30/17 09:59 6 UNIT Insulin Human Lispro (HumaLOG) 0-7 UNITS TIDWMEALS 09/30/17 08:00 10/05/17 09:04 3 UNITS Lactobacillus Rhamnosus (Culturelle) 1 cap BID 10/01/17 21:00 10/05/17 08:54 1 CAP Lidocaine (Lidoderm) 1 patch DAILY 10/03/17 11:00 10/04/17 09:01 1 PATCH Lidocaine HCl (Xylocaine-Mpf 1% 2ml Vial) 2 ml 1X PRN PRN 09/30/17 07:00 09/30/17 19:00 DC Magnesium Hydroxide (Milk Of Magnesia) 2,400 mg PRN DAILY PRN 10/02/17 16:30 Miscellaneous (Lidoderm Patch Removal) 1 ea QHS 10/03/17 21:00 10/04/17 21:00 1 EA Morphine Sulfate 30 ml @ 0 mls/hr CONT PRN PRN 09/30/17 10:00 10/03/17 09:19 DC 10/02/17 07:08 0 MLS/HR Morphine Sulfate (Morphine Sulfate) 1 mg PRN Q10MIN PRN 09/30/17 07:00 09/30/17 19:00 DC Naloxone HCl (Narcan) 0.4 mg PRN Q2MIN PRN 09/30/17 09:45 10/03/17 09:19 DC Neostigmine Methylsulfate (Neostigmine Methylsulfate) 5 mg STK-MED ONCE 09/30/17 08:53 09/30/17 08:54 DC Ondansetron HCl (Zofran) 4 mg PRN Q6HRS PRN 09/30/17 09:45 10/05/17 04:34 4 MG Oxycodone/ Acetaminophen (Percocet 10/325) 1 tab PRN Q4HRS PRN 10/02/17 16:30 10/05/17 04:34 1 TAB Pantoprazole Sodium (PROTONIX VIAL for IV PUSH) 40 mg DAILYAC 09/30/17 07:30 10/03/17 09:19 DC 10/02/17 08:28 40 MG Pantoprazole Sodium (Protonix) 40 mg DAILYAC 10/05/17 10:00 Phenylephrine HCl (PHENYLEPHRINE in 0.9% NACL PF) 1 mg STK-MED ONCE 09/30/17 07:15 09/30/17 07:16 DC Piperacillin Sod/ Tazobactam Sod 3.375 gm/Sodium Chloride 50 ml @ 100 mls/hr Q6HRS 09/30/17 18:00 10/02/17 16:36 DC 10/02/17 13:04 100 MLS/HR Polyethylene Glycol (miraLAX PACKET) 17 gm DAILY 10/03/17 09:00 Potassium Chloride/Sodium Chloride 1,000 ml @ 80 mls/hr [id number] 10/01/17 09:30 10/03/17 10:55 DC 10/03/17 02:28 80 MLS/HR Potassium Chloride (Klor-Con) 40 meq DAILYWBKFT 10/02/17 08:00 10/05/17 08:53 40 MEQ Prochlorperazine Edisylate (Compazine) 5 mg PACU PRN PRN 09/30/17 07:00 09/30/17 19:00 DC Propofol 20 ml @ As Directed STK-MED ONCE 09/30/17 07:16 8/23/18 07:17 DC Ringer's Solution 1,000 ml @ 100 mls/hr Q10H 09/30/17 11:00 10/01/17 08:41 DC Rocuronium [place] (Zemuron) 50 mg STK-MED ONCE 09/30/17 07:44 09/30/17 07:45 DC Sodium Chloride 1,000 ml @ 25 mls/hr Q24H 09/30/17 10:00 10/01/17 04:09 25 MLS/HR Sodium Chloride (Normal Saline Flush) 3 ml QSHIFT PRN 09/30/17 09:45 Labs: Lab Laboratory Tests Test 10/04/17 11:54 10/04/17 16:34 10/04/17 20:05 10/05/17 07:41 Glucose (Fingerstick) 169 mg/dL (70-99) 193 mg/dL (70-99) 240 mg/dL (70-99) 199 mg/dL (70-99) Micro URINE CULTURE Final Final report URINE CULTURE RES 1 Final Escherichia coli Greater than 100,000 colony forming units per mL Cefazolin <=4 ug/mL Cefazolin with an MARTIN <=16 predicts susceptibility to the oral agents cefaclor, cefdinir, cefpodoxime, cefprozil, cefuroxime, cephalexin, and loracarbef when used for therapy of uncomplicated urinary tract infections due to E. coli, Klebsiella pneumoniae, and Proteus mirabilis. ANTIMICROBIAL SUSCEPTIBILITY Final Comment S = Susceptible; I = Intermediate; R = Resistant P = Positive; N = Negative MICS are expressed in micrograms per mL Antibiotic RSLT#1 RSLT#2 RSLT#3 RSLT#4 Amoxicillin/Clavulanic Acid S =4 Ampicillin S =8 Cefepime S<=0.12 Ceftriaxone S<=0.25 Cefuroxime I =8 Ciprofloxacin S<=0.25 Ertapenem S<=0.12 Gentamicin S<=1 Imipenem S<=0.25 Levofloxacin S<=0.12 Meropenem S<=0.25 Nitrofurantoin S<=16 Piperacillin/Tazobactam S<=4 Tetracycline S<=1 Tobramycin S<=1 Trimethoprim/Sulfa S<=20 Performed at: DA - [facility] [address] [id number], [place], [place] [id number] Objective: Assessment: Perforated ulcer s/p surgery Leukocytosis Low grade fever Cirrhosis E coli UTI Plan: Plan of Care po augmentin since 10/02 supportive care SUSANNA ZAPATA MD Oct 05, 2017 10:07
== END 2017-10-05 10:30 | disposition home or self-care (01) | DRG 327 ==
LOC: ER 22:04 → 5 SOUTH 23:45
PROVIDERS: ADMIT Internal Medicine; ATTEND Internal Medicine
PROC: 0DB60ZX Excision of Stomach, Open Approach, Diagnostic (ICD-10-PCS; 2017-09-30)
PROC: 0DU907Z Supplement Duodenum with Autologous Tissue Substitute, Open Approach (ICD-10-PCS; 2017-09-30)
PROC: 0DJD4ZZ Inspection of Lower Intestinal Tract, Percutaneous Endoscopic Approach (ICD-10-PCS; principal; 2017-09-30 07:30)
DX: K25.1 Acute gastric ulcer with perforation (principal); N39.0 Urinary tract infection, site not specified; K66.8 Other specified disorders of peritoneum; B96.20 Unspecified Escherichia coli [E. coli] as the cause of diseases classified elsewhere; D72.828 Other elevated white blood cell count; E11.42 Type 2 diabetes mellitus with diabetic polyneuropathy; E11.65 Type 2 diabetes mellitus with hyperglycemia; E66.01 Morbid (severe) obesity due to excess calories; F12.90 Cannabis use, unspecified, uncomplicated; F41.9 Anxiety disorder, unspecified; G89.29 Other chronic pain; K74.60 Unspecified cirrhosis of liver; K80.20 Calculus of gallbladder without cholecystitis without obstruction; M47.26 Other spondylosis with radiculopathy, lumbar region; M47.812 Spondylosis without myelopathy or radiculopathy, cervical region; R32 Unspecified urinary incontinence; Z53.31 Laparoscopic surgical procedure converted to open procedure; Z87.11 Personal history of peptic ulcer disease; Z90.49 Acquired absence of other specified parts of digestive tract; E87.6 Hypokalemia; T39.395A Adverse effect of other nonsteroidal anti-inflammatory drugs [NSAID], initial encounter
CPT/HCPCS: 36415; 72146; 72148; 74176; 80048; 80053; 81001; 82962; 83605; 83690; 83735; 84484; 85007; 85025; 85027; 85610; 87086; 87186; 88305; 88342; 93005; C9113; J0690; J0694; J1100; J1650; J1815; J2270; J2370; J2405; J2543; J2704; J2710; J3010; J3480; J3490; J7030; J7120; S0028; 99285-25

== ENCOUNTER → 2017-12-24 | Day surgery (SDC) | payer BC ==
[~2017-12-24] MED LIST: AMOX1TAB11 PO; HYDROmorphone 2 MG/ML VIAL IV PRN; IV RINGERS,LACTATED 1000ML 1,000 ML IV SCH; LIDO700A39 TD; LIDOCAINE 1% PF 2 ML VIAL. ID PRN; LIDOCAINE 1% PF 2 ML VIAL. ONE; MIDAZOLAM HCL/PF 2 MG/2 ML VIAL. IV PRN; MORPHINE SULFATE 2 MG/ML VIAL. IV PRN; ONDANSETRON PF 4 MG/2 ML VIAL. IV PRN; OXYC-411 PO; PANT20TA2 PO; PROCHLORPERAZINE 10 MG/2 ML VIAL. IV PRN; PROPOFOL 20 ML IV ONE; Pantoprazole PO; [UNRECOGNIZED DRUG - REMARK]; fentaNYL PF VIAL 100 MCG/2 ML VIAL IV PRN; lantus; novolog
[2017-12-24 08:11] LABS: U PREG PATIENT NEGATIVE (NEG)
[2017-12-24 09:15] VITALS: BP 138/63
--- NOTE | 2017-12-24 22:15 | CONS ---
DATE OF CONSULTATION: 12/24/2017 REFERRING PHYSICIAN: Jose Albright MD. HISTORY OF PRESENT ILLNESS: This is a 47-year-old female with past medical history significant for anemia, arthritis, diabetes, nausea as well as a gastric ulcer, which required surgery. She is here today for endoscopy to confirm complete healing. Prior NSAID use is noted. She also notes persistent nausea, which may be related to elevated blood sugars and primary care followup for hyperglycemic therapy is recommended. PAST MEDICAL HISTORY: Diabetes, gastric ulcers, arthritis. ALLERGIES: PENICILLIN AND SULFA. MEDICATIONS: Presently none. SOCIAL HISTORY: She is a nonsmoker, nondrinker. FAMILY HISTORY: Noncontributory except for the diabetes in multiple family members as well as hypertension and MIs. REVIEW OF SYSTEMS: Per records. PHYSICAL EXAMINATION: GENERAL: This is a well-nourished, well-developed female. VITAL SIGNS: Temperature is 98.1, pulse 90, respirations 20. HEENT: Normocephalic and atraumatic. Pupils and extraocular muscles are not tested. Sclerae anicteric. NECK: Supple. LUNGS: Clear. CARDIOVASCULAR: Reveals an S1, S2 without S3, S4 or appreciable murmur. ABDOMEN: Soft abdomen, normal bowel sounds. No appreciable hepatosplenomegaly, well-healed midline surgical incision. EXTREMITIES: Reveals no cyanosis, clubbing or edema. IMPRESSION: Gastric ulcer. Surveillance endoscopy is recommended at this time to confirm healing. Risks and benefits have been discussed. The patient is willing to proceed at this time. In addition, with the hyperglycemia, follow up with her primary care physician to initiate an antihyperglycemic therapy, diabetes medications, metformin, insulin likewise is encouraged by nursing staff and myself with the patient with her sugar of almost 300 today. MO MCDANIELS MD DR: CONSTANZA/elvia JOB#: [id number] / [id number]
== END | disposition home or self-care (01) ==
LOC: ENDOS 07:33
PROVIDERS: ATTEND Internal Medicine Gastroenterology
DX: K29.50 Unspecified chronic gastritis without bleeding (principal); E11.9 Type 2 diabetes mellitus without complications; M19.90 Unspecified osteoarthritis, unspecified site; D64.9 Anemia, unspecified; Z88.0 Allergy status to penicillin; Z88.2 Allergy status to sulfonamides; Z83.3 Family history of diabetes mellitus; Z82.49 Family history of ischemic heart disease and other diseases of the circulatory system; Z91.018 Allergy to other foods; Z79.84 Long term (current) use of oral hypoglycemic drugs
CPT/HCPCS: 43235; 81025; 82962; J2704